=== PATIENT | male | born 1940 | race Caucasian/White ===

== ENCOUNTER → 2016-12-10 | Outpatient (CLI) | payer MEDICARE ==
[2016-12-10 11:34] LABS: Basophils % (A) 1 %; Eosinophils # (A) 0.4 k/uL (0-0.7); Eosinophils % (A) 8 %; HCT 37.5 % (39.0-53.0); HDW 2.64; HGB 12.8 gm/dL (13.0-17.5); Luc # (Auto) 0.15; Luc % (Auto) 3; Lymphocytes # (A) 0.8 k/uL (1.0-4.8); Lymphocytes % (A) 17 %; MCH 33.4 pg (25.0-35.0); MCHC 34.2 g/dL (31.0-37.0); MCV 97.7 fL (80.0-100.0); Mean Platelet Volume 7.4; Monocytes # (A) 0.3 k/uL (0-1.0); Monocytes % (A) 7 %; Neutrophils % (A) 65 %; RBC 3.83 m/uL (4.30-5.90); RDW 14.4 % (11.5-15.5); WBC 4.7 k/uL (3.8-10.6); WBC (Perox) 4.97
[2016-12-10 11:41] LABS: Bilirubin, Delta 0.4 mg/dL (0.0-0.2); Potassium 4.2 mmol/L (3.5-5.1); Total Bilirubin 1.2 mg/dL (0.2-1.3); Total Protein 7.7 g/dL (6.3-8.2)
== END | disposition home or self-care (01) ==
LOC: LABWHC1 10:55
PROVIDERS: ATTEND Internal Medicine Cardiovascular Disease
DX: I25.10 Atherosclerotic heart disease of native coronary artery without angina pectoris (principal)
CPT/HCPCS: 36415; 80051; 80061; 80076; 82550; 82565; 83735; 84520; 85025

== ENCOUNTER → 2017-01-21 | Outpatient (CLI) | payer MEDICARE ==
--- NOTE | 2017-01-21 10:32 | US ---
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 H/O renal stones, colitis, tobacco use EXAM MEASUREMENTS: Liver Length: 15.5 cm Gallbladder Wall: 0.2 cm CBD: 0.4 cm Spleen: 8.1 cm Right Kidney: 12.7 x 5.3 x 5.7 cm Left Kidney: 8.5 x 4.1 x 3.6 cm Pancreas: wnl, tail obscured by bowel gas Liver: wnl Gallbladder: Multiple gallstones filling lumen, wall not thickened Evidence for sonographic Soler's sign: No CBD: wnl Spleen: wnl Right Kidney: wnl Left Kidney: Small in size, cortical thinning Upper IVC: wnl Abd Aorta: wnl The liver is homogenous. The intrahepatic portion of the IVC and proximal abdominal aorta are within normal limits. There is redemonstration of multiple small mobile gallstones filling gallbladder lum en. No pericholecystic fluid collection or abnormal gallbladder wall thickening is seen. Common bile duct is unremarkable. The visualized portions of the pancreas are homogenous. The spleen is unrema rkable. Kidneys are symmetric and free of hydronephrosis. No suspicious renal lesions are seen. Asy mmetric atrophy and cortical thinning of left kidney is present. Large staghorn type calculus on prio r CT is not clearly identified suggesting interval successful with lithotripsy or treatment. Small pu nctate calculi right kidney on CT are less well seen on ultrasound. Exophytic cyst mid to lower pole level left kidney posterior laterally on CT measuring just over 1 cm in size axial image 35 is not cl early seen on ultrasound images saved. IMPRESSION: Gallstones redemonstrated without secondary ultrasound evidence for acute cholecystitis. Interval successful treatment of staghorn type calculus left kidney. Asymmetric atrophy to left kidne y is noted.
== END | disposition home or self-care (01) ==
LOC: RADUSWWP 09:31
PROVIDERS: ATTEND Internal Medicine Gastroenterology
DX: K51.90 Ulcerative colitis, unspecified, without complications (principal); K80.80 Other cholelithiasis without obstruction; N26.1 Atrophy of kidney (terminal); Z87.891 Personal history of nicotine dependence
CPT/HCPCS: 76700

== ENCOUNTER → 2018-06-22 | Outpatient (CLI) | payer MEDICARE ==
[2018-06-22 11:15] LABS: Albumin 4.1 g/dL (3.5-5.0); Calcium 9.8 mg/dL (8.4-10.2); Potassium 4.1 mmol/L (3.5-5.1); Total Bilirubin 0.9 mg/dL (0.2-1.3); Total Protein 7.3 g/dL (6.3-8.2)
== END ==
LOC: LABWHC1 10:29
PROVIDERS: ATTEND Internal Medicine Interventional Cardiology
DX: E78.2 Mixed hyperlipidemia (principal)
CPT/HCPCS: 36415; 80053; 80061

== ENCOUNTER → 2018-07-09 | Outpatient (CLI) | payer MEDICARE ==
--- NOTE | 2018-07-09 15:10 | XR ---
EXAMINATION TYPE: XR KUB DATE OF EXAM: 07/09/2018 COMPARISON: 08/09/2014 INDICATION: History of kidney stones TECHNIQUE: Single view abdomen frontal projection FINDINGS: There is a normal bowel gas pattern. Psoas margins are normal. No organomegaly is present. Filter is present. Surgical clips are within the midabdomen left upper quadrant abdomen and within th e pelvis. 0.2 cm calcification may overlie the mid right kidney. Additional suspicious renal or ureteral stones are not identified IMPRESSION: 1. May be a 0.2 cm calcification overlying the right kidney. 2. Postsurgical changes.
== END ==
LOC: RADXRMAIN 14:43
PROVIDERS: ATTEND Urology
DX: N20.0 Calculus of kidney (principal); Z98.890 Other specified postprocedural states
CPT/HCPCS: 74018

== ENCOUNTER → 2018-09-23 | Outpatient (CLI) | payer MEDICARE | END | disposition home or self-care (01) | LOC: RADCTMAIN 12:20 | PROVIDERS: ATTEND Otolaryngology | DX: J38.00 Paralysis of vocal cords and larynx, unspecified (principal); R49.0 Dysphonia | CPT/HCPCS: 82565; 84520 ==

== ENCOUNTER → 2018-10-08 | Outpatient (CLI) | payer MEDICARE ==
--- NOTE | 2018-10-09 10:16 | CT ---
EXAMINATION TYPE: CT neck chest w con DATE OF EXAM: 10/08/2018 COMPARISON: NONE HISTORY: Hoarseness, LT vocal cord paralysis. No contrast due to pt previous lab report CT DLP: 1436 mGycm. Automated Exposure Control for Dose Reduction was Utilized. TECHNIQUE: CT scan of the neck and thorax are performed without IV contrast due to abnormal renal fu nction. FINDINGS: NECK: Evaluation noted suboptimal due to lack of IV contrast which limits evaluation for mucosal lesi ons and neck adenopathy. Airway: Artifact from dental cavitary fillings and crowns makes evaluation at this level suboptimal. Visualized portion of the airway is clear. Thyroid gland is felt within normal limits. Parotid/submandibular glands: No gross abnormality seen. Carotid/Vascular Structures: There is mild to moderate calcified plaque right carotid bulb with minim al calcified plaque left carotid bulb. Osseous Structures: There is levoconvex scoliosis centered in the upper thoracic spine. There is grad e 1 retrolisthesis of C5 on C6. There is moderate to advanced spurring and disc space narrowing C4-C5 through C6-C7 levels. Posterior spur disc complexes effacing anterior thecal sac at C5-C6 level. Axi al images show uncovertebral facet degenerative changes bilaterally at C3-C4 level and at left C4-C5 level with marginal spurring right C5-C6 level contributing to multilevel neural foraminal narrowing. Other: Incidental mild to moderate mucosal thickening in the right sphenoid sinus coronal image 52. There are some scattered subcentimeter lymph nodes throughout the neck bilaterally. No greater than 1 cm neck adenopathy is clearly seen IMPRESSION: No suspicious mass or adenopathy identified on noncontrast CT of the neck. CHEST: LUNGS: There is patchy left greater than right bibasilar linear atelectasis and/or scarring. No pleur al effusion or pneumothorax is seen bilaterally. Nodular opacities dependently superior aspect right lower lobe favor rounded atelectatic change or pleural thickening, similar lesion is seen superior as pect left lower lobe axial image 30 measuring 9 x 4 mm. No nodules or masses are present. No suspicio us consolidation is seen. MEDIASTINUM: There are no greater than 1 cm hilar or mediastinal lymph nodes. Tiny pericardial effus ion is seen. No cardiomegaly is present. Dual-lumen pacemaker noted. There is mild calcified plaque of aorta. Ascending aorta measures up to 3.7 cm in diameter axial image 40. Mild coronary artery calc ification is present which is noted marker for underlying coronary artery disease. OTHER: Stone filled contracted gallbladder is present. There is partial visualization of left sided o stomy. Some cortical thinning in visualized portion of both kidneys is seen. There is moderate multil evel spurring in the thoracic spine. Patchy bilateral gynecomastia is noted. IMPRESSION: Chronic changes without acute pulmonary process.
== END | disposition home or self-care (01) ==
LOC: RADCTMAIN 16:21
PROVIDERS: ATTEND Otolaryngology
DX: J98.4 Other disorders of lung (principal); J38.00 Paralysis of vocal cords and larynx, unspecified; R49.0 Dysphonia
CPT/HCPCS: 70491; 71260

== ENCOUNTER → 2018-12-11 | Outpatient (CLI) | payer MEDICARE ==
[2018-12-11 11:42] LABS: Potassium 4.3 mmol/L (3.5-5.1)
== END ==
LOC: LABPAT 11:08
PROVIDERS: ATTEND Otolaryngology
DX: Z01.812 Encounter for preprocedural laboratory examination (principal)
CPT/HCPCS: 36415; 80051

== ENCOUNTER → 2018-12-11 | Outpatient (CLI) | payer MEDICARE ==
[2018-12-11 22:24] LABS: LDL Cholesterol,Calculated 77.2 mg/dL (0.0-131.0); VLDL Calculation 24.8 mg/dL (5.00-40.00)
[2018-12-11 22:25] LABS: Albumin 4.3 g/dL (3.80-4.90); Albumin/Globulin Ratio 1.54 (1.60-3.17); Anion Gap 8.5 mmol/L (4.00-12.00); Calcium 10.1 mg/dL (8.7-10.3); Carbon Dioxide 25.5 mmol/L (21.6-31.8); Globulin 2.8 g/dL (1.6-3.3); Potassium 4.2 mmol/L (3.5-5.5); Total Bilirubin 1.2 mg/dL (0.3-1.2); Total Protein 7.1 g/dL (6.2-8.2)
== END | disposition home or self-care (01) ==
LOC: LABWHC1 11:11
PROVIDERS: ATTEND Internal Medicine Interventional Cardiology
DX: E78.2 Mixed hyperlipidemia (principal)
CPT/HCPCS: 36415; 80053; 80061

== ENCOUNTER 2018-12-16 09:08 | Day surgery (SDC) | payer MEDICARE ==
[2018-12-10 12:00] VITALS: BMI 27.3
[~2018-12-16 09:08] MED LIST: DEXAMETHASONE SOD PHOSPHATE 10 MG/ML 1 ML VIAL IV ONE; DEXAMETHASONE SOD PHOSPHATE 4 MG/ML 1 ML VIAL IV ONE; FAMOTIDINE 20 MG/2 ML VIAL IV ONE; LACTATED RINGERS 1,000 ML IV SCH; LIDOCAINE 1% 20 ML VIAL (10MG/ML) FOR IV START INTRADERMA PRN; ONDANSETRON 4 MG/2 ML VIAL IVP ONE; ceFAZolin (PMX-bag) 1,000 MG in DEXTROSE/WATER 1 50ML.BAG IV ONE
[2018-12-16] MEDS: OXYMETAZOLINE 0.05% NASL SPRAY 1 SPRAY BOTTLE NASAL ONE ×5 (10:11→10:34)
[2018-12-16 10:27] VITALS: RESP 16; TEMP 97.3
[2018-12-16] MEDS ORDERED: diphenhydrAMINE 50 MG/ML 1 ML VIAL ONE (11:39)
[2018-12-16] MEDS ORDERED: DEXAMETHASONE SOD PHOS (MDV) 100 MG/10 ML VIAL ONE (11:39)
[2018-12-16] MEDS ORDERED: fentaNYL (PF) 50 MCG/ML 2 ML AMP ONE (11:39)
[2018-12-16] MEDS ORDERED: PROPOFOL 10 MG/ML 20 ML VIAL IV ONE (11:39)
[2018-12-16] MEDS ORDERED: LIDOCAINE 1%-EPI 1:100,000 20 ML VIAL SQ ONE ×2 (11:40)
[2018-12-16] MEDS ORDERED: FLUORESCEIN STRIPS 1 MG STRIP MISCELLANE ONE (11:40)
[2018-12-16] MEDS ORDERED: BUPIVACAIN-EPI 0.5%-1:200,000 30 ML VIAL SQ ONE ×2 (11:40)
[2018-12-16] MEDS ORDERED: EPINEPHrine 1 MG/ML (MDV) 30 ML VIAL IRRIGATION ONE (11:40)
--- NOTE | 2018-12-16 13:33 | P.OP ---
Date of Procedure: 12/16/18 Preoperative Diagnosis: Chronic maxillary sphenoid sinusitis Left vocal cord paralysis Postoperative Diagnosis: Same Procedure(s) Performed: Left medialization thyroplasty with insertion of a #10 Galdamez implant Functional endoscopic sinus surgery with bilateral maxillary antrostomies and sphenoid sinusotomies Anesthesia: VERITOA Surgeon: Natasha Dempsey Estimated Blood Loss (ml): 10 Pathology: none sent Condition: stable Disposition: PACU Indications for Procedure: This patient has chronic sinusitis of the maxillary and sphenoid sinus. He has failed medical therapy and would like to have his sinuses opened as he has constant discolored postnasal drainage etc. In addition the patient has a left vocal cord paralysis with severe dysphonia. The discussed the possibility of a medialization thyroplasty for vocal rehabilitation the patient was very motivated. All risks benefits and alternative therapies were discussed. Consent was obtained and all questions were answered. Operative Findings: Left vocal cord paralysis in the paramedian position preoperatively left vocal cord and a median position postoperatively after placement of a #10 Galdamez implant Patient had polypoid disease on the right side coming off the middle turbinate and had natasha pus in the sphenoid and maxillary sinuses bilaterally. Description of Procedure: OPERATIVE PROCEDURE: This patients neck was prepped and draped in the usual fashion. The anterior neck was prepared and draped such to expose the ipsilateral and contralateral sides. Oxygen was administered through nasal prongs. The thyroid notch, cricothyroid membrane and the inferior margin of the cricoid cartilage were identified and marked with dots utilizing a surgical marker. A horizontal skin incision line is marked approximately 5 mm above the inferior margin of the thyroid cartilage. The area surrounding the incision as well as the deep tissues were infiltrated with 1% Xylocaine and 1:100,000 epinephrine. The incision began 2 cm from the midline on the contralateral side and extended on the ipsilateral side of the neck to the anterior border of the sternocleidomastoid muscle. The skin incision was extended through the platysmas layer with a 15 blade so as to expose the sternohyoid and omohyoid muscles. Flaps were established superiorly and inferiorly in the plane superficial to the fascia covering the strap muscles. Flaps were with self-retaining retractors. The midline i.e. medial raphe is identified and the two sternohyoid muscles are to expose the thyroid notch. The anterior aspect of the thyroid cartilage, cricothyroid membrane and cricoid cartilage were exposed. The under surface of the ipsilateral sternohyoid and omohyoid muscles were dissected so that it could be retracted laterally. A Gelpi retractor was used for lateral retraction. The strap muscles were retracted laterally to expose the thyrohyoid muscle on the surface of the thyroid lamina. The muscle was transected just above the inferior border of the thyroid lamina. The thyrohyoid muscle was detached from its inferior attachment utilizing the chisel elevator and cutting current on the cautery. The thyroid lamina, its inferior border then inferior thyroid tubercle were exposed. The window caliper was used to locate the superior border and the anterior superior angle of the thyroplasty window. After the inferior thyroid tubercle had been identified and exposed, the inferior border of the thyroid lamina is exposed anterior and posterior to the structure. One point of the caliper touched the inferior border of the thyroid lamina anterior to the inferior thyroid tubercle and the other point directly superior. A similar cautery point was made in the inferior border posterior to the inferior thyroid tubercle utilizing 0.2. The anterior and posterior cautery markings were connected utilizing a surgical marking pen. The line is extended to the anterior aspect of the thyroid lamina and represents the superior margin of the thyroplasty window. The valdovinos point was measures and represents the anterior superior angle of the thyroplasty window. The window outline was measured. The shaft of the instrument was inserted into the electrocautery handle. The anterior superior point of the window outlined and was placed on the valdovinos point cautery. Current was applied making four burgess designating the four corners of the windows. The four burgess were connected with surgical marker. A small tangential saw was used to cut the thyroplasty window. The anterior margin of the cartilage was grasped with a small sharp hook and gently elevated. The underlying perichondrium was from the cartilage utilizing the chisel elevator as the cartilage was removed. After the cartilage was removed from the window, the window outlying instrument was used as a template to confirm that the window size was correct. After confirming accurate window size, the end of perichondrium was elevated from the underlying cartilage in all directions utilizing the chisel elevator. The fiberoptic laryngoscope was inserted at the same time and the size of each measuring device was identified and we started with the smallest size of the measuring device and went up to the largest size. We had him phonate and we looked directly. We felt that the number 10 was the best implant size. LEFT SIDE USED, A 100 mg of lidocaine hydrochloride was administered intravenously prior to insertion of the implant. The implant was grasped with the broad forceps and the posterior tip of the triangular portion is inserted through the window in the direction of the vocal process of the arytenoid. The middle tear of the base is engaged in the posterior rim of the window with the top and bottom tears at the base on either side of thyroid lamina. The implant was held in place with the index finger and the implant cambering machine operator was placed in the middle of the anterior base and was used to snap the implant in place. The fiberoptic scope was again used to confirm the vocal cord medialization while the patient phonates and it looked good. The sternohyoid muscles were approximated in the anterior midline with 4-0 Vicryl. The subcutaneous layer was closed after the platysmas was closed. No drain was needed. We observed this area and we did not find any need for that. The patient tolerated this procedure well. The deep dermal layers were closed with 4-0 Vicryl. The skin was closed with 5-0 nylon. Excellent results were obtained. The patient was placed on voice rest. Postoperative instructions are on the chart.
[2018-12-16 13:52] VITALS: BP 118/64; PULSE 65
--- NOTE | 2018-12-21 13:24 | CDI ---
Outpatient Documentation Clarification Form Date: 12/21/18 CDS/Last Waxer Name: Adrian Rodriguez, MANJU, CCS, [employer] CELL SEALER Phone: If any questions, call Kristina Goncalves Travograph Operator at [phone] Patient Name: Moustapha Enriquez Admit Date: 12/16/18 Discharge Date: 12/16/18 ATTENTION: The [facility] Coding Staff appreciate your assistance in clarifying documentation. Please respond to the clarification below the line at the bottom and electronically sign. The [facility] Coding staff will review the response and follow-up if needed. Please note: Queries are made part of the Legal Health Record. If you have any questions, please contact the Travograph Operator. Dear Dr. Aayush Dempsey DO, The operative report states the procedures performed were a left medialization thyroplasty and a FESS with bilateral maxillary antrostomies and sphenoid sinusotomies. However, the body of the operative report doesnt include the details for the sinus procedure(s). Please clarify whether there was a FESS performed and if so, the details of the procedure(s). Thank you for your kind consideration. I dictated an operative note addendum today so we should be good. paul SHAFER
--- NOTE | 2018-12-28 20:25 | OP ---
OPERATIVE REPORT OPERATIVE NOTE ADDENDUM: DATE OF SERVICE: 12/16/2018 OPERATIVE NOTE ADDENDUM: This patient underwent functional endoscopic sinus surgery after the left medialization thyroplasty was performed. We anesthetized the lateral nasal wall and sphenoid rostrum with Lidocaine 1% with epinephrine 1:100,000. With use of a zero-degree Wolf stephon-scope, we took down the uncinate processes bilaterally and widened and opened up the maxillary sinuses bilaterally, removing diseased tissue accordingly. After the maxillary sinuses were opened, under endoscopic visualization we then opened the sphenoid sinuses and widened the ostia. We entered the sphenoid sinuses bilaterally with a zero-degree Wolf stephon-endoscope and we removed diseased tissue from the sphenoid sinus. To summarize, we opened the bilateral maxillary sinuses and sphenoid sinuses, entered those sinuses and removed diseased tissue of the sinuses. This was all done under endoscopic visualization with a Wolf stephon-endoscope utilizing a zero- and 30-degree scope. This was done after the left medialization thyroplasty was performed. MMODL / IJN: [id number] /
== END 2018-12-16 14:54 | disposition home or self-care (01) ==
LOC: OR 09:08
PROVIDERS: ATTEND Otolaryngology
DX: J38.01 Paralysis of vocal cords and larynx, unilateral (principal); J32.8 Other chronic sinusitis; I25.10 Atherosclerotic heart disease of native coronary artery without angina pectoris; E78.5 Hyperlipidemia, unspecified; I10 Essential (primary) hypertension; K21.9 Gastro-esophageal reflux disease without esophagitis; M10.9 Gout, unspecified; Z95.5 Presence of coronary angioplasty implant and graft; Z95.810 Presence of automatic (implantable) cardiac defibrillator; Z79.2 Long term (current) use of antibiotics; Z79.01 Long term (current) use of anticoagulants; Z79.891 Long term (current) use of opiate analgesic; Z79.899 Other long term (current) drug therapy; Z87.891 Personal history of nicotine dependence
CPT/HCPCS: 31591; 31267; 31288; 88305; L8509; J0171; J1200; J1100 ×2; J2405; J3010; J0690; J2704

== ENCOUNTER 2019-03-31 15:00 | Emergency (ER) | payer MEDICARE ==
--- NOTE | 2019-03-31 15:41 | ED ---
ENT HPI - General Chief complaint: Dental/Oral Stated complaint: Facial swelling Time Seen by Provider: 03/31/19 15:12 Source: patient Mode of arrival: ambulatory Limitations: no limitations - History of Present Illness Initial comments: Patient is a 78-year-old male presents emergency Department with his dentist with a chief complaint of left-sided facial swelling. The dentist reports the patient came to his office for a right upper root canal repair when he noticed the swelling and brought him to the emergency department. Patient reports he "felt" the swelling approximately 2 months ago with a dentist reports the patient was in his office for evaluation on March 25 and no swelling was noted at that time. Patient reports the pain has increased in severity today when he attempted to chew. Patient also reports pain with palpation along the left mandible. Patient denies fever, nausea, vomiting, drooling, otalgia, headaches, dysphagia. - Related Data Home Medications Medication Instructions Recorded Confirmed Dutasteride [Avodart] 0.5 mg PO DAILY 01/10/14 12/10/18 Famotidine [Pepcid] 20 mg PO BID 01/10/14 12/10/18 Ferrous Sulfate [Feosol] 65 mg PO BID 01/10/14 12/10/18 Furosemide [Lasix] 40 mg PO DAILY 01/10/14 12/10/18 Simvastatin [Zocor] 20 mg PO HS 01/10/14 12/10/18 Tamsulosin [Flomax] 0.4 mg BID 01/10/14 12/10/18 Apixaban [Eliquis] 5 mg PO BID 09/30/18 12/10/18 Cholecalciferol (Vitamin D3) 2,000 unit PO BID 09/30/18 12/10/18 [Vitamin D3] Febuxostat [Uloric] 40 mg PO DAILY 09/30/18 12/10/18 Magnesium Oxide [Mag-Ox] 400 mg PO BID 09/30/18 12/10/18 Sotalol [Betapace] 80 mg PO BID 09/30/18 12/10/18 Acetaminophen-Codeine 300-30mg 1 tab PO DIRECTED PRN 12/10/18 12/10/18 [Tylenol w/codeine #3] Amoxic-Pot Clav 875-125Mg 1 tab PO BID 12/10/18 12/10/18 [Augmentin 875-125] Benzonatate [Tessalon Perles] 100 mg PO TID PRN 12/10/18 12/10/18 Fenofibrate 54 mg PO DAILY 12/10/18 12/10/18 Ferrous Sulfate [Feosol] 325 mg PO BID 12/10/18 12/10/18 Multivit-Min/Folic/Vit K/Lycop 1 each PO DAILY 12/10/18 12/10/18 [Men's Multivitamin Tablet] Potassium Chloride [Klor-Con 20] 20 meq PO QAM 12/10/18 12/10/18 Potassium Chloride [Klor-Con 20] 40 meq PO HS 12/10/18 12/10/18 Previous Rx's Medication Instructions Recorded Amoxicillin/Potassium Clav 1 each PO Q12HR #20 tab 12/16/18 [Augmentin 875-125 Tablet] HYDROcodone/APAP 5-325MG [[place] 1 - 2 tab PO Q4-6H PRN 3 Days #36 12/16/18 5-325] tab Omeprazole 20 mg PO DAILY #30 tablet. 12/16/18 predniSONE 20 mg PO DIRECTED #5 tab 12/16/18 Allergies Allergy/AdvReac Type Severity Reaction Status Date / Time No Known Allergies Allergy Verified 03/31/19 15:09 Review of Systems ROS Statement: Those systems with pertinent positive or pertinent negative responses have been documented in the HPI. ROS Other: All systems not noted in ROS Statement are negative. Past Medical History Past Medical History: Cancer, Hyperlipidemia, Hypertension, Prostate Disorder Additional Past Medical History / Comment(s): HX COLON & SKIN CANCER , HAS COLOSTOMY- STATES NO RECTUM., ARRYTHMIA, AICD-ST.JINNY, GOUT, HX KIDNEY STONES., HAS GALL STONES., STATES 3 ABDOMINAL HERNIA'S & UNABLE TO HAVE SURGERY., WEARS SUPPORT STOCKINGS SINCE VEIN SURGERY., HX OF CONCUSSION WITH LOSS OF CONSCIOUSNESS, STATES HX OF PARALIZED FROM NECK DOWN AND THIS RESOLVED., HAS STIFF NECK AND BACK PAIN. , MACULAR DEGENERATION., BPH. History of Any Multi-Drug Resistant Organisms: None Reported Past Surgical History: Bowel Resection, Heart Catheterization With Stent, Hernia Repair, Orthopedic Surgery Additional Past Surgical History / Comment(s): stent x1, colostomy, rt wrist carpal tunnel, Kidney stones removed ., Left side kidney tube Past Anesthesia/Blood Transfusion Reactions: No Reported Reaction Date of Last Stent Placement:: unknown Type of Cardiac Device: AICD Device Placement Date:: st jinny unknown Past Psychological History: No Psychological Hx Reported Smoking Status: Former smoker Past Alcohol Use History: Rare Past Drug Use History: None Reported - Past Family History Mother Family Medical History: No Reported History General Exam Limitations: no limitations General appearance: alert, in no apparent distress Head exam: Present: atraumatic, normocephalic, normal inspection Eye exam: Present: normal appearance, PERRL, EOMI Pupils: Present: normal accommodation ENT exam: Present: normal exam, mucous membranes moist, TM's normal bilaterally, normal external ear exam. Absent: normal oropharynx (Left-sided mandibular swelling but no erythema.), other (No enlarged tonsils, exudates or uvular de viation.) Neck exam: Present: normal inspection, full ROM Respiratory exam: Present: normal lung sounds bilaterally Cardiovascular Exam: Present: regular rate, normal rhythm, normal heart sounds GI/Abdominal exam: Present: soft Extremities exam: Present: normal inspection, full ROM Back exam: Present: normal inspection, full ROM, CVA tenderness (L) Neurological exam: Present: alert, oriented X3 Psychiatric exam: Present: normal affect, normal mood Skin exam: Present: warm, intact, normal color Course Vital Signs 03/31/19 03/31/19 15:09 16:12 Temperature 97.7 F Pulse Rate 53 L 59 L Respiratory 16 20 Rate Blood Pressure 127/73 123/68 O2 Sat by Pulse 97 98 Oximetry Medical Decision Making - Lab Data Result diagrams: 03/31/19 16:10 03/31/19 16:10 Lab Results 03/31/19 03/31/19 Range/Units 16:10 16:10 WBC 8.6 (3.8-10.6) k/uL RBC 3.98 L (4.30-5.90) m/uL Hgb 12.9 L (13.0-17.5) gm/dL Hct 38.6 L (39.0-53.0) % MCV 96.9 (80.0-100.0) fL MCH 32.5 (25.0-35.0) pg MCHC 33.5 (31.0-37.0) g/dL RDW 14.5 (11.5-15.5) % Plt Count 175 (150-450) k/uL Sodium 143 (137-145) mmol/L Potassium 4.2 (3.5-5.1) mmol/L Chloride 108 H (98-107) mmol/L Carbon Dioxide 25 (22-30) mmol/L Anion Gap 10 mmol/L BUN 29 H (9-20) mg/dL Creatinine 1.36 H (0.66-1.25) mg/dL Est GFR (CKD-EPI)AfAm 56 (>60 ml/min/1.73 sqM) Est GFR (CKD-EPI)NonAf 49 (>60 ml/min/1.73 sqM) Glucose 96 (74-99) mg/dL Calcium 10.1 (8.4-10.2) mg/dL Total Bilirubin 1.0 (0.2-1.3) mg/dL AST 31 (17-59) U/L ALT 13 L (21-72) U/L Alkaline Phosphatase 53 (38-126) U/L Total Protein 7.8 (6.3-8.2) g/dL Albumin 4.7 (3.5-5.0) g/dL Disposition Clinical Impression: Swelling of left side of face Disposition: HOME SELF-CARE Condition: Stable Instructions (If sedation given, give patient instructions): Dental Abscess (ED), Toothache (ED) Additional Instructions: Please follow up with an ENT specialist. Please return to emergency department if symptoms worsen. Is patient prescribed a controlled substance at d/c from ED?: No Referrals: Karli Borja MD [Primary Care Provider] - 1-2 days Christiano Bella MD [STAFF PHYSICIAN] - 1-2 days Time of Disposition: 17:59
[2019-03-31 16:21] LABS: HCT 38.6 % (39.0-53.0); HGB 12.9 gm/dL (13.0-17.5); MCH 32.5 pg (25.0-35.0); MCHC 33.5 g/dL (31.0-37.0); MCV 96.9 fL (80.0-100.0); Mean Platelet Volume 7.4; Platelet Count 175 k/uL (150-450); RBC 3.98 m/uL (4.30-5.90); RDW 14.5 % (11.5-15.5); WBC 8.6 k/uL (3.8-10.6)
[2019-03-31 16:33] LABS: Albumin 4.7 g/dL (3.5-5.0); Calcium 10.1 mg/dL (8.4-10.2); Potassium 4.2 mmol/L (3.5-5.1); Total Protein 7.8 g/dL (6.3-8.2)
[2019-03-31 16:36] VITALS: RESP 20
--- NOTE | 2019-03-31 17:20 | CT ---
EXAMINATION TYPE: CT soft tissue neck w con DATE OF EXAM: 03/31/2019 5:09 PM COMPARISON: 10/08/2018 HISTORY: Left jaw swelling CT DLP: 223.7 mGycm Automated exposure control for dose reduction was used. CONTRAST: CT scan of the neck is performed following with IV Contrast, patient injected with 100 mL of Isovue 3 00. Axial images are obtained, coronal and sagittal reformatted images are reviewed. FINDINGS: There is some atheromatous change in the aortic arch. There is normal branching pattern of the great vessels. Thyroid gland is symmetric. There is normal contrast opacification of the carotid arteries i n the vertebral arteries. There is some atheromatous plaque formation at the carotid artery bifurcati ons on the right side more than the left. Epiglottis is normal. Visualized trachea appears normal. There is no evidence of pharyngeal mass. Ton sils are symmetric. Adenoids appear normal. The tongue appears normal. There is no evidence of cervic al lymphadenopathy. Submandibular salivary glands are symmetric. Parotid glands are symmetric. There is minimal mucosal t hickening in the left side sphenoid sinus. Visualized orbits appear normal. There are spondylotic armida nges in the cervical spine with degenerative disc space narrowing from C4 to C7 with spur formation. There is multilevel hypertrophic cervical facet arthropathy. There is no compression fracture. IMPRESSION: Minimal left-sided sphenoid sinusitis. Otherwise negative exam. No suspicious neck mass. No adverse change compared to old exam. Spondylotic changes in the cervical spine. Unchanged.
[2019-03-31 18:42] VITALS: BP 126/74; PULSE 60; TEMP 98.3
== END 2019-03-31 18:20 | disposition home or self-care (01) ==
LOC: EC 15:00
DX: R22.0 Localized swelling, mass and lump, head (principal); R51 Headache; E78.5 Hyperlipidemia, unspecified; I10 Essential (primary) hypertension; N40.0 Benign prostatic hyperplasia without lower urinary tract symptoms; M10.9 Gout, unspecified; Z79.01 Long term (current) use of anticoagulants; Z79.899 Other long term (current) drug therapy; Z85.038 Personal history of other malignant neoplasm of large intestine; Z85.828 Personal history of other malignant neoplasm of skin; Z93.3 Colostomy status; Z86.79 Personal history of other diseases of the circulatory system; Z95.810 Presence of automatic (implantable) cardiac defibrillator; Z87.891 Personal history of nicotine dependence
CPT/HCPCS: 36415; 80053; 85027; 70491; 99284; Q9967

== ENCOUNTER → 2019-03-31 | Outpatient (CLI) | payer MEDICARE ==
[2019-03-31 16:20] LABS: LDL Cholesterol,Calculated 67.8 mg/dL (0.0-131.0); VLDL Calculation 25.2 mg/dL (5.00-40.00)
== END | disposition home or self-care (01) ==
LOC: LABWHC1 10:34
PROVIDERS: ATTEND Nurse Practitioner Adult Health
DX: E78.2 Mixed hyperlipidemia (principal)
CPT/HCPCS: 36415; 80061; 84450; 84460

== ENCOUNTER 2019-10-18 11:08 | Inpatient (IN) | payer MEDICARE ==
[2019-10-18] MEDS ORDERED: SODIUM CHLORIDE 0.9% 1,000 ML IV STA ×2 (12:08)
--- NOTE | 2019-10-18 12:12 | ED ---
General Adult HPI - General Chief complaint: Syncope Stated complaint: Syncope Time Seen by Provider: 10/18/19 11:29 Source: patient, EMS, RN notes reviewed Mode of arrival: EMS Limitations: no limitations - History of Present Illness Initial comments: Patient is a pleasant 78-year-old male presenting to the emergency Department with complaints of sacral episodes. Patient had 3 episodes today and 2 yesterday. Patient denies any injury. No head or neck pain. No chest or back pain. Patient does have some abdominal discomfort however that is fairly chronic problem for him. Patient has had nausea and vomiting for several days. Patient has had very limited intake for the past several days. Patient has had decreased output through his ostomy as well. No diarrhea. No fevers. Patient has had several abdominal surgeries previously and has know hernias. - Related Data Home Medications Medication Instructions Recorded Confirmed Dutasteride [Avodart] 0.5 mg PO DAILY 01/10/14 03/31/19 Famotidine [Pepcid] 20 mg PO BID 01/10/14 03/31/19 Ferrous Sulfate [Feosol] 65 mg PO BID 01/10/14 03/31/19 Furosemide [Lasix] 40 mg PO DAILY 01/10/14 03/31/19 Simvastatin [Zocor] 20 mg PO HS 01/10/14 03/31/19 Tamsulosin [Flomax] 0.4 mg BID 01/10/14 03/31/19 Apixaban [Eliquis] 5 mg PO BID 09/30/18 03/31/19 Cholecalciferol (Vitamin D3) 2,000 unit PO BID 09/30/18 03/31/19 [Vitamin D3] Febuxostat [Uloric] 40 mg PO DAILY 09/30/18 03/31/19 Magnesium Oxide [Mag-Ox] 400 mg PO BID 09/30/18 03/31/19 Sotalol [Betapace] 80 mg PO BID 09/30/18 03/31/19 Acetaminophen-Codeine 300-30mg 1 tab PO DIRECTED PRN 12/10/18 03/31/19 [Tylenol w/codeine #3] Benzonatate [Tessalon Perles] 100 mg PO TID PRN 12/10/18 03/31/19 Fenofibrate 54 mg PO DAILY 12/10/18 03/31/19 Ferrous Sulfate [Feosol] 325 mg PO BID 12/10/18 03/31/19 Multivit-Min/Folic/Vit K/Lycop 1 each PO DAILY 12/10/18 03/31/19 [Men's Multivitamin Tablet] Potassium Chloride [Klor-Con 20] 20 meq PO QAM 12/10/18 03/31/19 Potassium Chloride [Klor-Con 20] 40 meq PO HS 12/10/18 03/31/19 Previous Rx's Medication Instructions Recorded HYDROcodone/APAP 5-325MG [Kamuela 1 - 2 tab PO Q4-6H PRN 3 Days #36 12/16/18 5-325] tab Omeprazole 20 mg PO DAILY #30 tablet. 12/16/18 predniSONE [Deltasone] 20 mg PO DIRECTED #5 tab 12/16/18 Allergies Allergy/AdvReac Type Severity Reaction Status Date / Time No Known Allergies Allergy Verified 03/31/19 15:09 Review of Systems ROS Statement: Those systems with pertinent positive or pertinent negative responses have been documented in the HPI. ROS Other: All systems not noted in ROS Statement are negative. Constitutional: Denies: fever Eyes: Denies: eye pain ENT: Denies: ear pain Respiratory: Denies: cough, dyspnea Cardiovascular: Denies: chest pain Endocrine: Reports: fatigue Gastrointestinal: Reports: abdominal pain, nausea, vomiting Genitourinary: Denies: dysuria Musculoskeletal: Denies: back pain Skin: Denies: rash Neurological: Denies: headache, weakness Past Medical History Past Medical History: Cancer, Hyperlipidemia, Hypertension, Prostate Disorder Additional Past Medical History / Comment(s): HX COLON & SKIN CANCER , HAS COLOSTOMY- STATES NO RECTUM., ARRYTHMIA, AICD-ST.JINNY, GOUT, HX KIDNEY STONES., HAS GALL STONES., STATES 3 ABDOMINAL HERNIA'S & UNABLE TO HAVE SURGERY., WEARS S UPPORT STOCKINGS SINCE VEIN SURGERY., HX OF CONCUSSION WITH LOSS OF CONSCIOUSNESS, STATES HX OF PARALIZED FROM NECK DOWN AND THIS RESOLVED., HAS STIFF NECK AND BACK PAIN. , MACULAR DEGENERATION., BPH. History of Any Multi-Drug Resistant Organisms: None Reported Past Surgical History: Bowel Resection, Heart Catheterization With Stent, Hernia Repair, Orthopedic Surgery Additional Past Surgical History / Comment(s): stent x1, colostomy, rt wrist carpal tunnel, Kidney stones removed ., Left side kidney tube Past Anesthesia/Blood Transfusion Reactions: No Reported Reaction Date of Last Stent Placement:: unknown Type of Cardiac Device: AICD Device Placement Date:: st jinny unknown Past Psychological History: No Psychological Hx Reported Smoking Status: Former smoker Past Alcohol Use History: Rare Past Drug Use History: None Reported - Past Family History Mother Family Medical History: No Reported History Father Family Medical History: Congestive Heart Failure (CHF) Sister(s) Family Medical History: Unable to Obtain Additional Family Medical History / Comment(s): No no signs no daughters Brother(s) Family Medical History: Unable to Obtain (No brothers) General Exam Limitations: no limitations General appearance: alert, in no apparent distress Head exam: Present: atraumatic, normocephalic Eye exam: Present: normal appearance, PERRL ENT exam: Present: mucous membranes dry Neck exam: Present: normal inspection Respiratory exam: Present: normal lung sounds bilaterally Cardiovascular Exam: Present: regular rate, normal rhythm Expanded Peripheral pulses: 2+: Dorsalis Pedis (R), Dorsalis Pedis (L) GI/Abdominal exam: Present: soft, tenderness (Mild diffuse tenderness, more so right lower abdomen), normal bowel sounds. Absent: distended, guarding, rebound, rigid, pulsatile mass Extremities exam: Present: normal inspection Neurological exam: Present: alert Psychiatric exam: Present: normal affect, normal mood Skin exam: Present: normal color Course Vital Signs 10/18/19 10/18/19 10/18/19 11:36 11:41 12:41 Temperature 97.1 F L Pulse Rate 74 68 Respiratory 20 20 20 Rate Blood Pressure 123/69 112/70 O2 Sat by Pulse 97 98 Oximetry - Reevaluation(s) Reevaluation #1: 10/18/19 15:33 Right inguinal hernia reduced with improvement of symptoms of discomfort in the right renal area. Patient states it also feels better to him. Patient is familiar with this hernia as been chronic. EKG Findings - EKG Comments: EKG Findings:: Paced rhythm with a rate of 69. CA 286. QRS 164. QTC 490. QTC 525. Left axis. Wide-complex QRS. No acute ST change. Medical Decision Making - Medical Decision Making Patient reevaluated and updated. Case was discussed in detail with Dr. Hutchinson, who will admit covering for Dr. Borja. She did evaluate patient. - Lab Data Result diagrams: 10/18/19 12:05 10/18/19 12:05 Lab Results 10/18/19 10/18/19 10/18/19 Range/Units 12:05 12:05 13:00 WBC 25.3 H (3.8-10.6) k/uL RBC 6.09 H (4.30-5.90) m/uL Hgb 20.0 H* (13.0-17.5) gm/dL Hct 59.1 H* (39.0-53.0) % MCV 97.1 (80.0-100.0) fL MCH 32.9 (25.0-35.0) pg MCHC 33.9 (31.0-37.0) g/dL RDW 14.2 (11.5-15.5) % Plt Count 239 (150-450) k/uL Neutrophils % 84 % Lymphocytes % 3 % Monocytes % 10 % Eosinophils % 0 % Basophils % 1 % Neutrophils # 21.4 H (1.3-7.7) k/uL Lymphocytes # 0.7 L (1.0-4.8) k/uL Monocytes # 2.5 H (0-1.0) k/uL Eosinophils # 0.1 (0-0.7) k/uL Basophils # 0.3 H (0-0.2) k/uL PT (9.0-12.0) sec INR (<1.2) APTT (22.0-30.0) sec Sodium 133 L (137-145) mmol/L Potassium 4.4 (3.5-5.1) mmol/L Chloride 96 L (98-107) mmol/L Carbon Dioxide 21 L (22-30) mmol/L Anion Gap 16 mmol/L BUN 50 H (9-20) mg/dL Creatinine 1.95 H (0.66-1.25) mg/dL Est GFR (CKD-EPI)AfAm 37 (>60 ml/min/1.73 sqM) Est GFR (CKD-EPI)NonAf 32 (>60 ml/min/1.73 sqM) Glucose 192 H (74-99) mg/dL Calcium 9.7 (8.4-10.2) mg/dL Total Bilirubin 2.1 H (0.2-1.3) mg/dL AST 29 (17-59) U/L ALT 19 (4-49) U/L Alkaline Phosphatase 60 (38-126) U/L Total Protein 7.3 (6.3-8.2) g/dL Albumin 4.1 (3.5-5.0) g/dL Urine Color Yellow Urine Appearance Cloudy (Clear) Urine pH 5.5 (5.0-8.0) Ur Specific [place] 1.021 (1.001-1.035) Urine Protein 1+ H (Negative) Urine Glucose (UA) Negative (Negative) Urine Ketones Negative (Negative) Urine Blood Negative (Negative) Urine Nitrite Negative (Negative) Urine Bilirubin Negative (Negative) Urine Urobilinogen <2.0 (<2.0) mg/dL Ur Leukocyte Esterase Negative (Negative) Urine RBC <1 (0-5) /hpf Urine WBC 1 (0-5) /hpf Ur Squamous Epith Cells <1 (0-4) /hpf Hyaline Casts 13 H (0-2) /lpf Urine Mucus Rare H (None) /hpf 10/18/19 Range/Units 13:10 WBC (3.8-10.6) k/uL RBC (4.30-5.90) m/uL Hgb (13.0-17.5) gm/dL Hct (39.0-53.0) % MCV (80.0-100.0) fL MCH (25.0-35.0) pg MCHC (31.0-37.0) g/dL RDW (11.5-15.5) % Plt Count (150-450) k/uL Neutrophils % % Lymphocytes % % Monocytes % % Eosinophils % % Basophils % % Neutrophils # (1.3-7.7) k/uL Lymphocytes # (1.0-4.8) k/uL Monocytes # (0-1.0) k/uL Eosinophils # (0-0.7) k/uL Basophils # (0-0.2) k/uL PT 10.9 (9.0-12.0) sec INR 1.1 (<1.2) APTT 22.3 (22.0-30.0) sec Sodium (137-145) mmol/L Potassium (3.5-5.1) mmol/L Chloride (98-107) mmol/L Carbon Dioxide (22-30) mmol/L Anion Gap mmol/L BUN (9-20) mg/dL Creatinine (0.66-1.25) mg/dL Est GFR (CKD-EPI)AfAm (>60 ml/min/1.73 sqM) Est GFR (CKD-EPI)NonAf (>60 ml/min/1.73 sqM) Glucose (74-99) mg/dL Calcium (8.4-10.2) mg/dL Total Bilirubin (0.2-1.3) mg/dL AST (17-59) U/L ALT (4-49) U/L Alkaline Phosphatase (38-126) U/L Total Protein (6.3-8.2) g/dL Albumin (3.5-5.0) g/dL Urine Color Urine Appearance (Clear) Urine pH (5.0-8.0) Ur Specific Cocoa (1.001-1.035) Urine Protein (Negative) Urine Glucose (UA) (Negative) Urine Ketones (Negative) Urine Blood (Negative) Urine Nitrite (Negative) Urine Bilirubin (Negative) Urine Urobilinogen (<2.0) mg/dL Ur Leukocyte Esterase (Negative) Urine RBC (0-5) /hpf Urine WBC (0-5) /hpf Ur Squamous Epith Cells (0-4) /hpf Hyaline Casts (0-2) /lpf Urine Mucus (None) /hpf - Radiology Data Radiology results: report reviewed (Computed tomography scan of the abdomen pelvis shows that abdominal ascites. Appearance of right lower quadrant varices. The liver. Small bowel containing hernia right inguinal. Mesenteric congestion.), image reviewed (Chest x-ray shows no acute process) Disposition Clinical Impression: Dehydration, Syncope Disposition: ADMITTED IP TO THIS [facility] Condition: Serious Is patient prescribed a controlled substance at d/c from ED?: No Referrals: Karli Borja MD [Primary Care Provider] - 1-2 days Decision Time: 15:24
[2019-10-18 12:29] LABS: Basophils # (A) 0.3 k/uL (0-0.2); Basophils % (A) 1 %; Eosinophils # (A) 0.1 k/uL (0-0.7); Eosinophils % (A) 0 %; Lymphocytes # (A) 0.7 k/uL (1.0-4.8); Lymphocytes % (A) 3 %; MCH 32.9 pg (25.0-35.0); MCHC 33.9 g/dL (31.0-37.0); MCV 97.1 fL (80.0-100.0); Mean Platelet Volume 8.3; Monocytes # (A) 2.5 k/uL (0-1.0); Monocytes % (A) 10 %; Neutrophils # (A) 21.4 k/uL (1.3-7.7); Neutrophils % (A) 84 %; Platelet Count 239 k/uL (150-450); RBC 6.09 m/uL (4.30-5.90); RDW 14.2 % (11.5-15.5); WBC 25.3 k/uL (3.8-10.6)
[2019-10-18 12:31] LABS: Potassium 4.4 mmol/L (3.5-5.1)
[2019-10-18 12:32] LABS: Albumin 4.1 g/dL (3.5-5.0); Calcium 9.7 mg/dL (8.4-10.2); Total Bilirubin 2.1 mg/dL (0.2-1.3); Total Protein 7.3 g/dL (6.3-8.2)
[2019-10-18 12:33] LABS: HCT 59.1 % (39.0-53.0)
[2019-10-18 13:21] LABS: Appearance,Urine Cloudy (Clear); Bilirubin,Urine Negative (Negative); Blood,Urine Negative (Negative); Color,Urine Yellow; Glucose,Urine (UA) Negative (Negative); Hyaline Casts,Urine 13 /lpf (0-2); Ketones,Urine Negative (Negative); Leukocyte Esterase,Urine Negative (Negative); Mucus,Urine Rare /hpf; Nitrite,Urine Negative (Negative); PH, Urine 5.5 (5.0-8.0); Protein,Urine 1+ (Negative); RBC,Urine <1 /hpf (0-5); Specific Gravity,Urine 1.021 (1.001-1.035); Squamous Epithelial Cell,Urine <1 /hpf (0-4); Urobilinogen,Urine <2.0 mg/dL (<2.0); WBC,Urine 1 /hpf (0-5)
[2019-10-18 14:10] LABS: INR 1.1 (<1.2)
[2019-10-18 14:13] LABS: Partial Thromboplastin Time 22.3 sec (22.0-30.0); Prothrombin Time 10.9 sec (9.0-12.0)
--- NOTE | 2019-10-18 14:28 | XR ---
EXAMINATION TYPE: XR chest 2V DATE OF EXAM: 10/18/2019 COMPARISON: NONE HISTORY: Shortness of breath TECHNIQUE: Frontal and lateral views of the chest are obtained. FINDINGS: Scattered senescent parenchymal changes noted. Hyperinflation compatible with COPD. No evidence for infiltrate. No evidence for atelectasis. Heart size is stable. Mediastinal structures are stable and grossly unremarkable. No evidence for hilar prominence. Degenerative changes dorsal spine. IMPRESSION: 1. No evidence for acute pulmonary disease.
--- NOTE | 2019-10-18 14:41 | CT ---
EXAMINATION TYPE: CT abdomen pelvis wo con DATE OF EXAM: 10/18/2019 COMPARISON: 10/18/2019 HISTORY: Abdominal pain and syncope. History of partial resection with colostomy, hernia, cardiac natalia nt, and lithotripsy. CT DLP: 657.5 mGycm Automated exposure control for dose reduction was used. TECHNIQUE: Helical acquisition of images was performed from the lung bases through the pelvis. FINDINGS: LUNG BASES: Peripheral basilar reticular opacity of the right lung base appears as early fibrotic armida nge. Right hemidiaphragm elevation is also seen. Trace pericardial effusion. LIVER/GB: Perihepatic and perisplenic ascites are noted however there is no cirrhotic morphology of gerri tobar liver. Ascites is overall small volume. Liver is unremarkable in unenhanced morphology. Cholelithi asis is seen. PANCREAS: No significant abnormality is seen. SPLEEN: No significant abnormality is seen. Small splenule adjacent to the [place] spleen. ADRENALS: No significant abnormality is seen. KIDNEYS: Nonobstructing right renal calculi in the midpole measuring 2 mm in the inferior pole measur ing 3 mm. No hydronephrosis of either kidney. Lobulated contours is seen of both kidneys suboptimally evaluated without contrast. ADENOPATHY: No greater than 1 cm short axis lymph node in the abdomen or pelvis given the limitation of lack of intravenous contrast. OSSEOUS STRUCTURES: There is diffuse osseous demineralization and moderate degenerative changes of t amadou lumbar spine with Schmorl's node of the inferior endplate of L1. BOWEL: Midline ostomy is present. Right lower quadrant varices are seen however. Some mild fat stran ding surrounding bowel loops in the right lower quadrant could relate to ascites as this is also seen within the pelvis. There is a small bowel containing right inguinal hernia. Physical exam for reduci bility is recommended. Thickening of the gastric antrum may relate to peristalsis or adjacent ascites . Oral contrast could further evaluate this finding. OTHER: Vena cava filter is incidentally seen. Metallic density anterior to the pancreatic head that c ould represent an embolization coil. Surgical clips are scattered in the left mid abdomen. Extensive atherosclerosis of the abdominal aorta and its branches. IMPRESSION: 1. Mild abdominal ascites. Although the liver contour appears smooth there are right lower quadrant v arices. Underlying cirrhosis or venous obstruction is possible. 2. Small bowel containing right inguinal hernia. Correlation with physical exam for reducibility is r ecommended to ensure no incarceration. 3. Mild fat stranding around right lower quadrant bowel loops and pelvic bowel loops likely relates t o mesenteric congestion and ascites rather than inflammatory or infectious etiology. 4. Incidentally noted nonobstructing right renal calculi and cholelithiasis. 5. Trace pericardial effusion.
--- NOTE | 2019-10-18 15:12 | P.HPIM ---
History of Present Illness H&P Date: 10/18/19 Chief Complaint: Syncope This is an 78-year-old pleasant gentleman patient of Dr. Gordillo. He has underlying history of kidney stones, hernias, PAD, colon cancer, AICD, admitted through the emergency room secondary to 5episodes of syncope and 2 falling episodes for the past 2 days. He had 3 episodes today of syncope, patient has been ill with intractable vomiting, diminished appetite, for the past 2 days. Patient has no diarrhea, however he has no output in his ostomy bag, patient does not have any abdominal pain, patient denies any fever no chills, he sees Dr. castillo cardiology, with no medication changes, Dr. Borja within the past 30 days, without any medication changes. Patient has premonition that he would pass out on 2 occasions only, patient denies any concussion, and no melena hematochezia, patient denies any chest pain no palpitations during this event, patient denies any sick contacts, patient denies any dysuria, he had what is suspected to be an angioplasty in the right lower extremity done by another vascular surgeon in [facility], this was done last 5 days prior to admission. Patient has no claudication at this time, however he is Cold feet, no lesions Extremities, and good dorsalis pedis pulses however they're both diminished. Patient does not have any alcohol dependency, his last beer was 2 weeks ago, no dysuria no back pain no hematuria, known history of large kidney stones with lithotripsy in the past. Patient denies any seizure episode, and no motor deficits upon recovery. In the emergency room patient was very hemoconcentrated, with WBC count of, 25.3, hemoglobin 20.0, creatinine 1.95 from a previous of 1.45 in 2013, BUN of 50, sodium 133, potassium 4.4, glucose 192, INR 1.1, urinalysis was negative for pyuria, however he's got 13 hyaline casts, specific gravity of 1.0-1, with some proteinuria noted. No transaminitis was noted, no lipase available for review, patient was admitted secondary to dehydration, and recurrent syncope, with consults to cardiology, EEG of the brain to be done, carotid Dopplers, echocardiogram, need pacemaker interrogation if needed consult to neurology as well. Review of Systems Constitutional: Reports as per HPI, Denies anorexia, Denies chills, Denies chronic headaches, Denies chronic pain, Denies daytime sleepiness, Denies fatigue, Denies fever, Denies lethargy, Denies malaise, Denies night sweats, Denies poor appetite, Denies sweats, Denies weakness, Denies weight gain, Denies weight loss Ears, nose, mouth and throat: Reports as per HPI Cardiovascular: Reports as per HPI, Reports syncope Respiratory: Reports as per HPI Gastrointestinal: Reports as per HPI, Denies abdominal pain, Denies belching, Denies bloating, Denies BRBPR, Denies change in bowel habits, Denies coffee ground emesis, Denies constipation, Denies diarrhea, Denies dyspepsia, Denies early satiety, Denies excessive gas, Denies heartburn, Denies hematemesis, Denies hematochezia, Denies indigestion, Denies jaundice, Denies lactose intolerance, Denies loss of appetite, Denies melena, Denies nausea, Denies vomiting Genitourinary: Reports as per HPI Musculoskeletal: Reports as per HPI, Denies arm numbness/tingling, Denies atrophy, Denies fractures, Denies frequent falls, Denies gait dysfunction, Denies hot joints, Denies leg numbness/tingling, Denies limitation of motion, Denies loss of height, Denies low back pain, Denies morning stiffness, Denies muscle cramps, Denies muscle weakness, Denies myalgias, Denies neck pain, Denies neck stiffness, Denies prior amputations, Denies redness of joints, Denies shooting arm pain, Denies shooting leg pain Integumentary: Reports as per HPI, Denies acne, Denies boils, Denies brittle nails, Denies change in hair/nails, Denies color changes, Denies darkening of skin, Denies depigmentation, Denies dryness, Denies foot/leg ulcers, Denies growths, Denies hirsutism, Denies lesions, Denies onychomycosis, Denies pruritus, Denies rash, Denies sores, Denies striae, Denies unusual bruising, Denies wounds Neurological: Reports as per HPI, Denies aphasia, Denies ataxia, Denies balance difficulties, Denies burning pain, Denies change in mentation, Denies change in smell/taste, Denies change in speech, Denies confusion, Denies convulsions, Denies double vision, Denies gait dysfunction, Denies head injury, Denies headaches, Denies hearing difficulties, Denies lack of coordination, Denies loss of vision, Denies memory loss, Denies migraines, Denies motor disturbance, Denies numbness, Denies paralysis, Denies paresthesias, Denies seizures, Denies sensory deficit, Denies spasticity, Denies syncope, Denies tic, Denies tingling, Denies transient paralysis, Denies tremors, Denies vertigo, Denies weakness, Denies visual changes Psychiatric: Reports as per HPI, Denies anhedonia, Denies anxiety, Denies anxiety attacks, Denies change in appetite, Denies change in libido, Denies change in sleep habits, Denies confusion, Denies depression, Denies difficulty concentrating, Denies disorientation, Denies hallucinations, Denies hopelessness, Denies hypersomnia, Denies insomnia, Denies irritability, Denies memory loss, Denies mood swings, Denies paranoia, Denies sadness/tearfulness, Denies sleep disturbances, Denies suicidal ideation Endocrine: Reports as per HPI, Denies cold intolerance, Denies deepening of the voice, Denies excessive sweating, Denies excessive thirst, Denies fatigue, Denies flushing, Denies heat intolerance, Denies high blood sugars, Denies increase in ring/shoe/hat size, Denies low blood sugars, Denies nocturia, Denies palpitations, Denies polydipsia, Denies polyphagia, Denies polyuria, Denies proptosis, Denies recent glucocorticoid use, Denies thyroid mass, Denies weight change Hematologic/Lymphatic: Reports as per HPI, Denies easy bleeding, Denies easy bruising, Denies lymphadenopathy, Denies lymphedema, Denies thrombophilia Allergic/Immunologic: Reports as per HPI, Denies allergic rhinitis, Denies anaphylaxis, Denies angioedema, Denies gluten intolerance, Denies persistent infections, Denies seasonal allergies, Denies urticaria, Denies wheezing Past Medical History Past Medical History: Cancer, Hyperlipidemia, Hypertension, Prostate Disorder Additional Past Medical History / Comment(s): HX COLON & SKIN CANCER , HAS COLOSTOMY- STATES NO RECTUM., ARRYTHMIA, AICD-ST.JINNY, GOUT, HX KIDNEY STONES., HAS GALL STONES., STATES 3 ABDOMINAL HERNIA'S & UNABLE TO HAVE SURGERY., WEARS SUPPORT STOCKINGS SINCE VEIN SURGERY., HX OF CONCUSSION WITH LOSS OF CONSCIOUSNESS, STATES HX OF PARALIZED FROM NECK DOWN AND THIS RESOLVED., HAS STIFF NECK AND BACK PAIN. , MACULAR DEGENERATION., BPH. History of Any Multi-Drug Resistant Organisms: None Reported Past Surgical History: Bowel Resection, Heart Catheterization With Stent, Hernia Repair, Orthopedic Surgery Additional Past Surgical History / Comment(s): stent x1, colostomy, rt wrist carpal tunnel, Kidney stones removed ., Left side kidney tube Past Anesthesia/Blood Transfusion Reactions: No Reported Reaction Date of Last Stent Placement:: unknown Type of Cardiac Device: AICD Device Placement Date:: st jinny unknown Past Psychological History: No Psychological Hx Reported Smoking Status: Former smoker Past Alcohol Use History: Rare Past Drug Use History: None Reported - Past Family History Mother Family Medical History: No Reported History Father Family Medical History: Congestive Heart Failure (CHF) Sister(s) Family Medical History: Unable to Obtain Additional Family Medical History / Comment(s): No no signs no daughters Brother(s) Family Medical History: Unable to Obtain (No brothers) Medications and Allergies Home Medications Medication Instructions Recorded Confirmed Type Dutasteride [Avodart] 0.5 mg PO DAILY 01/10/14 10/18/19 History Famotidine [Pepcid] 20 mg PO BID 01/10/14 10/18/19 History Simvastatin [Zocor] 20 mg PO HS 01/10/14 10/18/19 History Tamsulosin [Flomax] 0.4 mg PO DAILY 01/10/14 10/18/19 History Cholecalciferol (Vitamin D3) 2,000 unit PO BID 09/30/18 10/18/19 History [Vitamin D3] Febuxostat [Uloric] 40 mg PO DAILY 09/30/18 10/18/19 History Magnesium Oxide [Mag-Ox] 400 mg PO BID 09/30/18 10/18/19 History Sotalol [Betapace] 40 mg PO BID 09/30/18 10/18/19 History Fenofibrate 54 mg PO DAILY 12/10/18 10/18/19 History Ferrous Sulfate [Feosol] 325 mg PO BID 12/10/18 10/18/19 History Potassium Chloride [Klor-Con 20] 20 meq PO QAM 12/10/18 10/18/19 History Potassium Chloride [Klor-Con 20] 40 meq PO HS 12/10/18 10/18/19 History Apixaban [Eliquis] 2.5 mg PO BID 10/18/19 10/18/19 History Furosemide [Lasix] 40 mg PO DAILY 10/18/19 10/18/19 History Multivit-Min/FA/Lycopen/Lutein 1 tab PO DAILY 10/18/19 10/18/19 History [Centrum Silver Men Tablet] methylPREDNISolone Dose Pack See Taper PO DIRECTED 10/18/19 10/18/19 History [Medrol Dose Pack] Allergies Allergy/AdvReac Type Severity Reaction Status Date / Time No Known Allergies Allergy Verified 10/18/19 16:17 Physical Exam Vitals: Vital Signs Temp Pulse Resp BP Pulse Ox 10/18/19 12:41 68 20 112/70 98 10/18/19 11:41 20 10/18/19 11:36 97.1 F L 74 20 123/69 97 Intake and Output 10/17/19 10/18/19 10/18/19 22:59 06:59 14:59 Other: Weight 81.647 kg - Constitutional General appearance: average body habitus, cooperative, no acute distress - EENT Eyes: EOMI, PERRLA, normal appearance ENT: NA/AT, normal oropharynx - Neck Neck: normal ROM - Respiratory Respiratory: bilateral: CTA, negative: diminished, dullness, rales - Cardiovascular Rhythm: regular Heart sounds: normal: S1, S2 Abnormal Heart Sounds: no systolic murmur, no diastolic murmur, no rub, no S3 Gallop, no S4 Gallop, no click, no other - Gastrointestinal General gastrointestinal: normal bowel sounds, soft, tenderness (fullness in righlower quadrant pelvic region at femoral area, size of small coffee saucer with tenderness on palpation) - Integumentary Integumentary: decreased turgor, normal - Neurologic Neurologic: CNII-XII intact, focal deficits (None) - Musculoskeletal Musculoskeletal: strength equal bilaterally Results CBC & Chem 7: 10/20/19 05:50 10/20/19 05:50 Labs: Abnormal Lab Results - Last 24 Hours (Table) 10/18/19 10/18/19 10/18/19 Range/Units 12:05 12:05 13:00 WBC 25.3 H (3.8-10.6) k/uL RBC 6.09 H (4.30-5.90) m/uL Hgb 20.0 H* (13.0-17.5) gm/dL Hct 59.1 H* (39.0-53.0) % Neutrophils # 21.4 H (1.3-7.7) k/uL Lymphocytes # 0.7 L (1.0-4.8) k/uL Monocytes # 2.5 H (0-1.0) k/uL Basophils # 0.3 H (0-0.2) k/uL Sodium 133 L (137-145) mmol/L Chloride 96 L (98-107) mmol/L Carbon Dioxide 21 L (22-30) mmol/L BUN 50 H (9-20) mg/dL Creatinine 1.95 H (0.66-1.25) mg/dL Glucose 192 H (74-99) mg/dL Total Bilirubin 2.1 H (0.2-1.3) mg/dL Urine Protein 1+ H (Negative) Hyaline Casts 13 H (0-2) /lpf Urine Mucus Rare H (None) /hpf Laboratory Results WBC 25.3 k/uL (3.8-10.6) H 10/18/19 12:05 RBC 6.09 m/uL (4.30-5.90) H 10/18/19 12:05 Hgb 20.0 gm/dL (13.0-17.5) H* 10/18/19 12:05 Hct 59.1 % (39.0-53.0) H* 10/18/19 12:05 MCV 97.1 fL (80.0-100.0) 10/18/19 12:05 MCH 32.9 pg (25.0-35.0) 10/18/19 12:05 MCHC 33.9 g/dL (31.0-37.0) 10/18/19 12:05 RDW 14.2 % (11.5-15.5) 10/18/19 12:05 Plt Count 239 k/uL (150-450) 10/18/19 12:05 Neutrophils % 84 % 02/11/20 12:05 Lymphocytes % 3 % 10/18/19 12:05 Monocytes % 10 % 10/18/19 12:05 Eosinophils % 0 % 10/18/19 12:05 Basophils % 1 % 10/18/19 12:05 Neutrophils # 21.4 k/uL (1.3-7.7) H 10/18/19 12:05 Lymphocytes # 0.7 k/uL (1.0-4.8) L 10/18/19 12:05 Monocytes # 2.5 k/uL (0-1.0) H 10/18/19 12:05 Eosinophils # 0.1 k/uL (0-0.7) 10/18/19 12:05 Basophils # 0.3 k/uL (0-0.2) H 10/18/19 12:05 PT 10.9 sec (9.0-12.0) 10/18/19 13:10 INR 1.1 (<1.2) 10/18/19 13:10 APTT 22.3 sec (22.0-30.0) 10/18/19 13:10 Sodium 133 mmol/L (137-145) L 10/18/19 12:05 Potassium 4.4 mmol/L (3.5-5.1) 10/18/19 12:05 Chloride 96 mmol/L (98-107) L 10/18/19 12:05 Carbon Dioxide 21 mmol/L (22-30) L 10/18/19 12:05 Anion Gap 16 mmol/L 10/18/19 12:05 BUN 50 mg/dL (9-20) H 10/18/19 12:05 Creatinine 1.95 mg/dL (0.66-1.25) H 10/18/19 12:05 Est GFR (CKD-EPI)AfAm 37 (>60 ml/min/1.73 sqM) 10/18/19 12:05 Est GFR (CKD-EPI)NonAf 32 (>60 ml/min/1.73 sqM) 10/18/19 12:05 Glucose 192 mg/dL (74-99) H 10/18/19 12:05 Calcium 9.7 mg/dL (8.4-10.2) 10/18/19 12:05 Total Bilirubin 2.1 mg/dL (0.2-1.3) H 10/18/19 12:05 AST 29 U/L (17-59) 10/18/19 12:05 ALT 19 U/L (4-49) 10/18/19 12:05 Alkaline Phosphatase 60 U/L (38-126) 10/18/19 12:05 Total Protein 7.3 g/dL (6.3-8.2) 10/18/19 12:05 Albumin 4.1 g/dL (3.5-5.0) 10/18/19 12:05 Urine Color Yellow 10/18/19 13:00 Urine Appearance Cloudy (Clear) 10/18/19 13:00 Urine pH 5.5 (5.0-8.0) 10/18/19 13:00 Ur Specific [place] 1.021 (1.001-1.035) 10/18/19 13:00 Urine Protein 1+ (Negative) H 10/18/19 13:00 Urine Glucose (UA) Negative (Negative) 10/18/19 13:00 Urine Ketones Negative (Negative) 10/18/19 13:00 Urine Blood Negative (Negative) 10/18/19 13:00 Urine Nitrite Negative (Negative) 10/18/19 13:00 Urine Bilirubin Negative (Negative) 10/18/19 13:00 Urine Urobilinogen <2.0 mg/dL (<2.0) 10/18/19 13:00 Ur Leukocyte Esterase Negative (Negative) 10/18/19 13:00 Urine RBC <1 /hpf (0-5) 10/18/19 13:00 Urine WBC 1 /hpf (0-5) 10/18/19 13:00 Ur Squamous Epith Cells <1 /hpf (0-4) 10/18/19 13:00 Hyaline Casts 13 /lpf (0-2) H 10/18/19 13:00 Urine Mucus Rare /hpf (None) H 10/18/19 13:00 Thrombosis Risk Factor Assmnt - DVT/VTE Prophylaxis DVT/VTE Prophylaxis: Pharmacologic Prophylaxis ordered, Low risk, early ambulation encouraged - Choose All That Apply Each Risk Factor Represents 2 Points: Malignancy Each Risk Factor Represents 3 Points: Age 75 years or older Thrombosis Risk Factor Assessment Total Risk Factor Score: 5 Thrombosis Risk Factor Assessment Level: High Risk Assessment and Plan Plan: 1. Recurrent episodes of multiple syncope, without any concussion, patient has an AICD, etiologies could be either cardiac or neurologic , no hypotension noted during his initial ER evaluation patient has an eye AICD which arm was followed by Dr. anna cardiology, patient would also have an EEG of the brain, consult with cardiology and neurology, carotid Dopplers, patient has significant dehydration prior to this episode, patient would be fluid resuscitated, no ongoing lower GI losses except for nausea and vomiting, lipase to be done,, patient has no misfiring of AICD during this episode, we will check orthostasis in the next 24-48 hours once stabilized, 2. Hemoconcentration with elevated hematocrit, possibly secondary, secondary to volume contraction, IV fluids to be done, might need further evaluation, to include iron studies for hemochromatocytosis 3. Pacemaker placement with AICD most likely secondary to sick sinus syndrome,Patient is not on any long-term anticoagulation, no diagnoses of atrial fibrillation per patient await cardiology consultation 3. Acute kidney insufficiency CK D stage III,, IV hydration, baseline creatinine 1.4-1.5 on admission it was 1.95, avoid hypotension and nephrotoxic agents 4. Bilateral inguinal hernia, with small bowel in the right inguinal hernia, this cannot be surgically operated per patient secondary to his colostomy bag, monitor for strangulation, there is pain at the right lower quadrant area, will consult general surgery Dr. Joe 5. Leukocytosis, possibly secondary to acute phase reactant, pro-calcitonin level, urinalysis negative, cannot rule out chemical pneumonitis secondary to the vomiting episodes, chest x-ray failed to reveal any acute infiltrates, continue to monitor clinically no IV antibiotics needed at this time 6. Perihepatic ascites, unknown significance, cannot rule out cirrhosis, no transaminitis noted on laboratories has hyperbilki 7. Known history of colon cancer diagnosed 2016, with 11 surgeries related to complications including obstruction, last major surgery was in 2016 8. PAD, with recent angioplasty done on the right leg 9. Inguinal hernias, bilateral, chronic, with right inguinal hernia with small bowel possibile incarceration right side.we would monitor for signs of strangulation which cannot be ruled out in the CAT scan consult Dr. Joe 10. History of nephrolithiasis, no current symptoms, Dr. Bryan in the past with prior lithotripsy 7. Patient's ambulatory status prior to admission was without any assist devices, no O2 requirements prior to admission 11. Impaired random blood sugars, possibly prediabetes I-Sarai sugar diabetes, check A1c and Accu-Cheks 11. Hyperbilirubinemia, without other transaminitis, possibly related to Gilbert's, we would evaluate for fractionation, doubt hemolysis
[2019-10-18] MEDS ORDERED: ONDANSETRON 4 MG/2 ML VIAL IVP PRN (15:34)
[2019-10-18] MEDS ORDERED: NALOXONE 0.4 MG/ML 1 ML VIAL IV PRN (15:34)
--- NOTE | 2019-10-18 16:05 | US ---
EXAMINATION TYPE: US carotid duplex BILAT DATE OF EXAM: 10/18/2019 COMPARISON: NONE CLINICAL HISTORY: syncope. syncope EXAM MEASUREMENTS: RIGHT: Peak Systolic Velocity (PSV) cm/sec ----- Right CCA: 45.5 ----- Right ICA: 68.8 ----- Right ECA: 51.9 ICA/CCA ratio: 1.5 RIGHT: End Diastole cm/sec ----- Right CCA: 7.8 ----- Right ICA: 17.4 ----- Right ECA: 0.0 LEFT: Peak Systolic Velocity (PSV) cm/sec ----- Left CCA: 46.2 ----- Left ICA: 79.0 ----- Left ECA: 47.0 ICA/CCA ratio: 1.7 LEFT: End Diastole cm/sec ----- Left CCA: 8.6 ----- Left ICA: 20.8 ----- Left ECA: 0.0 VERTEBRALS (direction of flow): Right Vertebral: Antegrade Left Vertebral: Antegrade Rhythm: Normal Mild plaque bilateral bifurcations. No evidence of significant stenosis. IMPRESSION: Mild degree of grayscale atheromatous plaquing with no sonographically evident hemodynam ically significant stenosis within either visualized carotid arterial system. Criteria for Assigning % of Stenosis / Diameter reduction (Estimation based on the indirect measurements of the internal carotid artery velocities (ICA PSV). 1. Normal (no stenosis)=ICA PSV < 125 cm/s: ratio < 2.0: ICA EDV<40 cm/s. 2. Less than 50% stenosis=ICA PSV < 125 cm/s: ratio < 2.0: ICA EDV<40 cm/s. 3. 50 to 69% stenosis=ICA PSV of 125 to 230 cm/s: ration 2.0 ? 4.0: ICA EDV 40-100 cm/s. 4. Greater than 70% stenosis to near occlusion= ICA PSV > 230 cm/s: ratio > 4.0: ICA EDV > 100 cm/s. 5. Near occlusion= ICA PSV velocities may be low or undetectable: variable ratio and ICA EDV. 6. Total occlusion=unable to detect flow.
--- NOTE | 2019-10-18 16:35 | EEG ---
ELECTROENCEPHALOGRAM REPORT DATE OF SERVICE: 10/18/2019. PREAMBLE: This is an 78-year-old male who presents with syncopal episodes. Also has sacral and abdominal pain. The patient has history of prostate cancer. EEG FINDINGS: A routine 21-channel awake digital EEG recording was accomplished utilizing the 10/20 international system with bipolar and referential montages. Background consists of well developed, well regulated, moderate voltage activity in 8-9 Hz alpha. Background is posterior-dominant and reactive to eye opening and closing. Some drowsiness was seen intermittently during this study with theta frequency rhythm. Deeper stages of sleep were not seen. Photic driving response was not seen. No focal or generalized epileptiform activity was seen. IMPRESSION: This is a normal awake and drowsy EEG. No epileptiform activity was seen. MMODL / IJN: [id number] / MTDD
[2019-10-18] MEDS: SODIUM CHLORIDE 0.9% 1,000 ML IV SCH (16:58)
--- NOTE | 2019-10-18 17:01 | P.GSCN ---
History of Present Illness Consult date: 10/18/19 Reason for Consult: Femoral hernia History of present illness: The patient is an 78 yo man who presented with multiple episodes of passing out and falling. He was found to be very dehydrated. During his evaluation he was found to have a reducible hernia in the right groin which was tender. He's had lower abdominal discomfort for many years. He also has known hernias. The one in the right groin may have been more tender the last week or so. The patient's had recurrent nausea and vomiting the last few days with decreased ostomy outpu t. His is been unable to keep any fluids down. He was told in the past he could not have elective hernia repair because of scar tissue. Review of Systems All systems: negative Past Medical History Past Medical History: Cancer, Hyperlipidemia, Hypertension, Prostate Disorder Additional Past Medical History / Comment(s): HX COLON & SKIN CANCER , HAS COLOSTOMY- STATES NO RECTUM., ARRYTHMIA, AICD-ST.JINNY, GOUT, HX KIDNEY STONES., HAS GALL STONES., STATES 3 ABDOMINAL HERNIA'S & UNABLE TO HAVE SURGERY., WEARS SUPPORT STOCKINGS SINCE VEIN SURGERY., HX OF CONCUSSION WITH LOSS OF CONSCIOUSNESS, STATES HX OF PARALIZED FROM NECK DOWN AND THIS RESOLVED., HAS STIFF NECK AND BACK PAIN. , MACULAR DEGENERATION., BPH. History of Any Multi-Drug Resistant Organisms: None Reported Past Surgical History: Bowel Resection, Heart Catheterization With Stent, Hernia Repair, Orthopedic Surgery Additional Past Surgical History / Comment(s): stent x1, colostomy, rt wrist carpal tunnel, Kidney stones removed ., Left side kidney tube Past Anesthesia/Blood Transfusion Reactions: No Reported Reaction Date of Last Stent Placement:: unknown Type of Cardiac Device: AICD Device Placement Date:: st jinny unknown Past Psychological History: No Psychological Hx Reported Smoking Status: Former smoker Past Alcohol Use History: Rare Past Drug Use History: None Reported - Past Family History Mother Family Medical History: No Reported History Father Family Medical History: Congestive Heart Failure (CHF) Sister(s) Family Medical History: Unable to Obtain Additional Family Medical History / Comment(s): No no signs no daughters Brother(s) Family Medical History: Unable to Obtain (No brothers) Medications and Allergies Home Medications Medication Instructions Recorded Confirmed Type Dutasteride [Avodart] 0.5 mg PO DAILY 01/10/14 10/18/19 History Famotidine [Pepcid] 20 mg PO BID 01/10/14 10/18/19 History Simvastatin [Zocor] 20 mg PO HS 01/10/14 10/18/19 History Tamsulosin [Flomax] 0.4 mg PO DAILY 01/10/14 10/18/19 History Cholecalciferol (Vitamin D3) 2,000 unit PO BID 09/30/18 10/18/19 History [Vitamin D3] Febuxostat [Uloric] 40 mg PO DAILY 09/30/18 10/18/19 History Magnesium Oxide [Mag-Ox] 400 mg PO BID 09/30/18 10/18/19 History Sotalol [Betapace] 40 mg PO BID 09/30/18 10/18/19 History Fenofibrate 54 mg PO DAILY 12/10/18 10/18/19 History Ferrous Sulfate [Feosol] 325 mg PO BID 12/10/18 10/18/19 History Potassium Chloride [Klor-Con 20] 20 meq PO [facility] 12/10/18 10/18/19 History Potassium Chloride [Klor-Con 20] 40 meq PO HS 12/10/18 10/18/19 History Apixaban [Eliquis] 2.5 mg PO BID 10/18/19 10/18/19 History Furosemide [Lasix] 40 mg PO DAILY 10/18/19 10/18/19 History Multivit-Min/FA/Lycopen/Lutein 1 tab PO DAILY 10/18/19 10/18/19 History [Centrum Silver Men Tablet] methylPREDNISolone Dose Pack See Taper PO DIRECTED 10/18/19 10/18/19 History [Medrol Dose Pack] Allergies Allergy/AdvReac Type Severity Reaction Status Date / Time No Known Allergies Allergy Verified 10/18/19 16:17 Surgical - Exam Osteopathic Statement: *. No significant issues noted on an osteopathic st ructural exam other than those noted in the History and Physical/Consult. Vital Signs Pulse Ox 96 10/18/19 11:35 - General Appears ill and dehydrated - Eyes normal ocular movement - ENT Mucous membranes dry - Neck trachea midline - Respiratory normal respiratory effort, clear to auscultation - Cardiovascular Rhythm: regular - Abdomen Ostomy appliance in the upper mid abdomen without any output in the bag Abdomen: soft, bowel sounds, surgical scars - Genitourinary Firm tender mass right groin which is irreducible, no mass left groin Results - Labs 10/18/19 12:05 10/18/19 12:05 Abnormal Lab Results - Last 24 Hours (Table) 10/18/19 10/18/19 10/18/19 Range/Units 12:05 12:05 13:00 WBC 25.3 H (3.8-10.6) k/uL RBC 6.09 H (4.30-5.90) m/uL Hgb 20.0 H* (13.0-17.5) gm/dL Hct 59.1 H* (39.0-53.0) % Neutrophils # 21.4 H (1.3-7.7) k/uL Lymphocytes # 0.7 L (1.0-4.8) k/uL Monocytes # 2.5 H (0-1.0) k/uL Basophils # 0.3 H (0-0.2) k/uL Sodium 133 L (137-145) mmol/L Chloride 96 L (98-107) mmol/L Carbon Dioxide 21 L (22-30) mmol/L BUN 50 H (9-20) mg/dL Creatinine 1.95 H (0.66-1.25) mg/dL Glucose 192 H (74-99) mg/dL Total Bilirubin 2.1 H (0.2-1.3) mg/dL Urine Protein 1+ H (Negative) Hyaline Casts 13 H (0-2) /lpf Urine Mucus Rare H (None) /hpf Diabetes panel 10/18/19 Range/Units 12:05 Sodium 133 L (137-145) mmol/L Potassium 4.4 (3.5-5.1) mmol/L Chloride 96 L (98-107) mmol/L Carbon Dioxide 21 L (22-30) mmol/L BUN 50 H (9-20) mg/dL Creatinine 1.95 H (0.66-1.25) mg/dL Glucose 192 H (74-99) mg/dL Calcium 9.7 (8.4-10.2) mg/dL AST 29 (17-59) U/L ALT 19 (4-49) U/L Alkaline Phosphatase 60 (38-126) U/L Total Protein 7.3 (6.3-8.2) g/dL Albumin 4.1 (3.5-5.0) g/dL Calcium panel 10/18/19 Range/Units 12:05 Calcium 9.7 (8.4-10.2) mg/dL Albumin 4.1 (3.5-5.0) g/dL Pituitary panel 10/18/19 Range/Units 12:05 Sodium 133 L (137-145) mmol/L Potassium 4.4 (3.5-5.1) mmol/L Chloride 96 L (98-107) mmol/L Carbon Dioxide 21 L (22-30) mmol/L BUN 50 H (9-20) mg/dL Creatinine 1.95 H (0.66-1.25) mg/dL Glucose 192 H (74-99) mg/dL Calcium 9.7 (8.4-10.2) mg/dL Adrenal panel 10/18/19 Range/Units 12:05 Sodium 133 L (137-145) mmol/L Potassium 4.4 (3.5-5.1) mmol/L Chloride 96 L (98-107) mmol/L Carbon Dioxide 21 L (22-30) mmol/L BUN 50 H (9-20) mg/dL Creatinine 1.95 H (0.66-1.25) mg/dL Glucose 192 H (74-99) mg/dL Calcium 9.7 (8.4-10.2) mg/dL Total Bilirubin 2.1 H (0.2-1.3) mg/dL AST 29 (17-59) U/L ALT 19 (4-49) U/L Alkaline Phosphatase 60 (38-126) U/L Total Protein 7.3 (6.3-8.2) g/dL Albumin 4.1 (3.5-5.0) g/dL - Imaging CT scan - abdomen: report reviewed, image reviewed Assessment and Plan (1) Incarcerated femoral hernia Current Visit: Yes Status: Acute Code(s): K41.30 - UNIL FEMORAL HERNIA, W OBST, W/O GANGRENE, NOT SPCF RECUR SNOMED Code(s): 627352262 (2) Dehydration Current Visit: Yes Status: Acute Code(s): E86.0 - DEHYDRATION SNOMED Code(s): 83234051 (3) Syncope Current Visit: Yes Status: Acute Code(s): R55 - SYNCOPE AND COLLAPSE SNOMED Code(s): 518890343 Plan: This hernia was concerning for a small bowel obstruction. We'll hold his Plavix. Hydrate. IV antibiotics. I will discuss case with primary care. Likely he will need a groin exploration tomorrow. If there is any ischemic small bowel which needs to be resected, unfortunately the hernia could not be repaired at the same time with a permanent mesh. Further recommendations to follow.
[2019-10-18 17:29] LABS: Bilirubin, Delta 0.4 mg/dL (0.0-0.2); Bilirubin,Unconjugated 1.6 mg/dL (0.0-1.1)
[2019-10-18] MEDS: PIPERACILLIN-TAZOBACTAM 3.375 GM in SODIUM CHLORIDE 0.9% 100 ML IVPB SCH (19:49)
[2019-10-19] MEDS: SODIUM CHLORIDE 0.9% 1,000 ML IV SCH ×4 (00:02→23:44)
[2019-10-19] MEDS: PIPERACILLIN-TAZOBACTAM 3.375 GM in SODIUM CHLORIDE 0.9% 100 ML IVPB SCH ×4 (00:02→23:46)
[2019-10-19 01:03] LABS: Glucose,Whole Blood 172 mg/dL (75-99)
[2019-10-19 01:37] LABS: MCH 33.5 pg (25.0-35.0); MCHC 34.1 g/dL (31.0-37.0); MCV 98.2 fL (80.0-100.0); Mean Platelet Volume 8.4; Platelet Count 218 k/uL (150-450); RDW 14.2 % (11.5-15.5); WBC 42.1 k/uL (3.8-10.6)
[2019-10-19 01:43] LABS: Calcium 8.1 mg/dL (8.4-10.2)
[2019-10-19 01:49] LABS: Potassium 4.9 mmol/L (3.5-5.1)
[2019-10-19 02:18] LABS: HCT 63.8 % (39.0-53.0); HGB 21.8 gm/dL (13.0-17.5)
[2019-10-19] MEDS ORDERED: LACTATED RINGERS 1,000 ML IV ONE (03:07)
[2019-10-19] MEDS ORDERED: LACTATED RINGERS 1,000 ML IV SCH (03:15)
[2019-10-19 03:47] LABS: Band Neutrophils % 3 %; Lymphocytes # (M) 4.21 k/uL (1.0-4.8); Monocytes # (M) 1.26 k/uL (0-1.0); Neutrophils % (M) 84 %; Nucleated Red Blood Cells 0 /100 WBC (0-0); Total Cells Counted 100
[2019-10-19 05:58] LABS: Albumin 2.4 g/dL (3.5-5.0); Calcium 8.1 mg/dL (8.4-10.2); Total Bilirubin 2.5 mg/dL (0.2-1.3); Total Protein 4.9 g/dL (6.3-8.2)
[2019-10-19] MEDS ORDERED: NOREPINEPHRINE 4 MG in SODIUM CHLORIDE 0.9% 250 ML IV SCH (06:00)
[2019-10-19] MEDS ORDERED: HYDROmorphone 0.5 MG/0.5 ML SYRINGE IVP STA (06:12)
[2019-10-19 06:13] LABS: Potassium 5.3 mmol/L (3.5-5.1)
--- NOTE | 2019-10-19 06:55 | P.PN ---
Subjective Progress Note Date: 10/19/19 The patient worsened through the night. He developed hypotension and was moved to the ICU. At that time he had significant hypothermia with a core body temperature of only 92. He was given fluid boluses. And his blood pressure improved. As his temperature normalized, however he began dropping his pres sures again. He is given additional fluid boluses and then started on levophed with blood pressures in the 90s. Now in addition to his groin discomfort is complaining of abdominal pain Objective - Vital Signs Vital signs: Vital Signs Temp 99.1 F 10/19/19 05:00 Pulse 88 10/19/19 06:00 Resp 14 10/19/19 06:00 BP 86/43 10/19/19 06:00 Pulse Ox 96 10/19/19 06:00 Intake & Output 10/18/19 10/18/19 10/19/19 06:59 18:59 06:59 Intake Total 1520 Output Total 320 Balance 1200 Weight 81.647 kg Intake: IV 1520 Lactated Ringers 1,000 ml 1000 @ 999 mls/hr IV .Q1H1M ONE Rx#:[id number] Sodium Chloride 0.9% 1, 520 000 ml @ 130 mls/hr IV . Q7H42M DENAE Rx#:[id number] Output: Urine 320 Other: Voiding Method Indwelling Catheter - Constitutional Constitutional Comment(s): Appears ill General appearance: Present: cooperative - Respiratory Respiratory: bilateral: CTA, diminished (At the bases) - Cardiovascular Rhythm: irregularly irregular - Gastrointestinal Gastrointestinal Comment(s): Right femoral hernia, moderately tender. No overlying cellulitis General gastrointestinal: Present: distended, tenderness (Mild diffuse tenderness, this was not present yesterday) - Labs CBC & Chem 7: 10/19/19 01:20 10/19/19 05:26 Labs: Abnormal Lab Results - Last 24 Hours (Table) 10/18/19 10/18/19 10/18/19 Range/Units 12:05 12:05 13:00 WBC 25.3 H (3.8-10.6) k/uL RBC 6.09 H (4.30-5.90) m/uL Hgb 20.0 H* (13.0-17.5) gm/dL Hct 59.1 H* (39.0-53.0) % Neutrophils # 21.4 H (1.3-7.7) k/uL Neutrophils # (Manual) (1.3-7.7) k/uL Lymphocytes # 0.7 L (1.0-4.8) k/uL Monocytes # 2.5 H (0-1.0) k/uL Monocytes # (Manual) (0-1.0) k/uL Basophils # 0.3 H (0-0.2) k/uL Sodium 133 L (137-145) mmol/L Potassium (3.5-5.1) mmol/L Chloride 96 L (98-107) mmol/L Carbon Dioxide 21 L (22-30) mmol/L BUN 50 H (9-20) mg/dL Creatinine 1.95 H (0.66-1.25) mg/dL Glucose 192 H (74-99) mg/dL POC Glucose (mg/dL) (75-99) mg/dL Plasma Lactic Acid Carl (0.7-2.0) mmol/L Calcium (8.4-10.2) mg/dL Total Bilirubin 2.1 H (0.2-1.3) mg/dL Unconjugated Bilirubin (0.0-1.1) mg/dL Delta Bilirubin (0.0-0.2) mg/dL AST (17-59) U/L Alkaline Phosphatase (38-126) U/L Total Protein (6.3-8.2) g/dL Albumin (3.5-5.0) g/dL Urine Protein 1+ H (Negative) Hyaline Casts 13 H (0-2) /lpf Urine Mucus Rare H (None) /hpf 10/18/19 10/19/19 10/19/19 Range/Units 15:08 01:01 01:20 WBC 42.1 H (3.8-10.6) k/uL RBC 6.50 H (4.30-5.90) m/uL Hgb 21.8 H* (13.0-17.5) gm/dL Hct 63.8 H* (39.0-53.0) % Neutrophils # (1.3-7.7) k/uL Neutrophils # (Manual) 36.60 H (1.3-7.7) k/uL Lymphocytes # (1.0-4.8) k/uL Monocytes # (0-1.0) k/uL Monocytes # (Manual) 1.26 H (0-1.0) k/uL Basophils # (0-0.2) k/uL Sodium (137-145) mmol/L Potassium (3.5-5.1) mmol/L Chloride (98-107) mmol/L Carbon Dioxide (22-30) mmol/L BUN (9-20) mg/dL Creatinine (0.66-1.25) mg/dL Glucose (74-99) mg/dL POC Glucose (mg/dL) 172 H (75-99) mg/dL Plasma Lactic Acid Carl (0.7-2.0) mmol/L Calcium (8.4-10.2) mg/dL Total Bilirubin 2.0 H (0.2-1.3) mg/dL Unconjugated Bilirubin 1.6 H (0.0-1.1) mg/dL Delta Bilirubin 0.4 H (0.0-0.2) mg/dL AST (17-59) U/L Alkaline Phosphatase (38-126) U/L Total Protein (6.3-8.2) g/dL Albumin (3.5-5.0) g/dL Urine Protein (Negative) Hyaline Casts (0-2) /lpf Urine Mucus (None) /hpf 10/19/19 10/19/19 10/19/19 Range/Units 01:20 05:26 05:45 WBC (3.8-10.6) k/uL RBC (4.30-5.90) m/uL Hgb (13.0-17.5) gm/dL Hct (39.0-53.0) % Neutrophils # (1.3-7.7) k/uL Neutrophils # (Manual) (1.3-7.7) k/uL Lymphocytes # (1.0-4.8) k/uL Monocytes # (0-1.0) k/uL Monocytes # (Manual) (0-1.0) k/uL Basophils # (0-0.2) k/uL Sodium 131 L 132 L (137-145) mmol/L Potassium 5.3 H (3.5-5.1) mmol/L Chloride (98-107) mmol/L Carbon Dioxide 13 L 13 L (22-30) mmol/L BUN 58 H 59 H (9-20) mg/dL Creatinine 2.28 H 2.59 H (0.66-1.25) mg/dL Glucose 164 H 137 H (74-99) mg/dL POC Glucose (mg/dL) (75-99) mg/dL Plasma Lactic Acid Carl 4.0 H* (0.7-2.0) mmol/L Calcium 8.1 L 8.1 L (8.4-10.2) mg/dL Total Bilirubin 2.5 H (0.2-1.3) mg/dL Unconjugated Bilirubin (0.0-1.1) mg/dL Delta Bilirubin (0.0-0.2) mg/dL AST 63 H (17-59) U/L Alkaline Phosphatase 30 L (38-126) U/L Total Protein 4.9 L (6.3-8.2) g/dL Albumin 2.4 L (3.5-5.0) g/dL Urine Protein (Negative) Hyaline Casts (0-2) /lpf Urine Mucus (None) /hpf Assessment and Plan (1) Incarcerated femoral hernia Current Visit: Yes Status: Acute Code(s): K41.30 - UNIL FEMORAL HERNIA, W OBST, W/O GANGRENE, NOT SPCF RECUR SNOMED Code(s): 669651434 (2) Dehydration Current Visit: Yes Status: Acute Code(s): E86.0 - DEHYDRATION SNOMED Code(s): 43524446 (3) Syncope Current Visit: Yes Status: Acute Code(s): R55 - SYNCOPE AND COLLAPSE SNOMED Code(s): 849623991 (4) Sepsis Current Visit: Yes Status: Acute Code(s): A41.9 - SEPSIS, UNSPECIFIED ORGANISM SNOMED Code(s): 19370522 Plan: Patient will go to the OR for laparotomy. Possible small bowel resection. The procedure, risks, complications were discussed with him. Questions were encouraged and answered. Prognosis is very guarded due to multiple medical comorbidities.
[2019-10-19 06:56] LABS: MCH 32.5 pg (25.0-35.0); MCHC 32.8 g/dL (31.0-37.0); MCV 99.2 fL (80.0-100.0); Mean Platelet Volume 8.6; Platelet Count 197 k/uL (150-450); RDW 14.3 % (11.5-15.5); WBC 43.1 k/uL (3.8-10.6)
[2019-10-19 07:19] LABS: RBC 6.92 m/uL (4.30-5.90)
[2019-10-19] MEDS ORDERED: PHENYLEPHRINE-0.9% NACL SYG 1 MG/10 ML SYRINGE ONE (07:21)
[2019-10-19] MEDS ORDERED: EPINEPHrine 10 ML SYRINGE (0.1 MG/ML) ONE (07:21)
[2019-10-19] MEDS ORDERED: ROCURONIUM BROMIDE 10 MG/ML 5 ML VIAL IV ONE (07:21)
[2019-10-19] MEDS ORDERED: ceFAZolin 1,000 MG VIAL ONE (07:21)
[2019-10-19] MEDS ORDERED: ETOMIDATE 2 MG/ML 10 ML VIAL ONE (07:21)
[2019-10-19 07:23] LABS: HCT 68.4 % (39.0-53.0); HGB 23.2 gm/dL (13.0-17.5)
--- NOTE | 2019-10-19 08:00 | ECHOF ---
Referral Reason:LVF MEASUREMENTS -------- HEIGHT: 175.3 cm WEIGHT: 81.6 kg BP: 154/84 RVIDd: 3.1 cm (< 3.3) IVSd: 1.4 cm (0.6 - 1.1) LVIDd: 4.8 cm (3.9 - 5.3) LVPWd: 1.3 cm (0.6 - 1.1) IVSs: 1.8 cm LVIDs: 3.5 cm LVPWs: 1.5 cm LA Diam: 3.3 cm (2.7 - 3.8) LAESV Index (A-L): 11.75 ml/m Ao Diam: 3.5 cm (2.0 - 3.7) AV Cusp: 2.0 cm (1.5 - 2.6) MV EXCURSION: 15.271 mm (> 18.000) MV EF SLOPE: 103 mm/s (70 - 150) EPSS: 1.0 cm MV E Damon: 0.96 m/s MV DecT: 160 ms MV A Damon: 0.37 m/s MV E/A Ratio: 2.56 AR PHT: 1091 ms RAP: 5.00 mmHg RVSP: 28.15 mmHg FINDINGS -------- AICD This was a technically good study. The left ventricular size is normal. There is moderate concentric left ventricular hypertrophy. O verall left ventricular systolic function is moderately impaired with, an EF between 35 - 40 %. Api barrett lateral LV wall motion is hypokinetic. Apical septum LV wall motion is hypokinetic. The right ventricle is normal in size. Normal LA size by volume 22+/-6 ml/m2. The right atrium is normal in size. Interatrial and interventricular septum intact. There is mild aortic valve sclerosis. There is mild aortic regurgitation. The mitral valve leaflets are mildly thickened. Mild mitral annular calcification present. There is trace to mild mitral regurgitation. Mild tricuspid regurgitation present. Right ventricular systolic pressure is normal at < 35 mmHg. Trace/mild (physiologic) pulmonic regurgitation. The aortic root size is normal. Normal inferior vena cava with normal inspiratory collapse consistent with estimated right atrial pre ssure of 5 mmHg. There is no pericardial effusion. CONCLUSIONS -------- 1. AICD 2. This was a technically good study. 3. The left ventricular size is normal. 4. There is moderate concentric left ventricular hypertrophy. 5. The right ventricle is normal in size. 6. Normal LA size by volume 22+/-6 ml/m2. 7. The right atrium is normal in size. 8. Interatrial and interventricular septum intact. 9. There is mild aortic valve sclerosis. 10. There is mild aortic regurgitation. 11. The mitral valve leaflets are mildly thickened. 12. Mild mitral annular calcification present. 13. There is trace to mild mitral regurgitation. 14. Mild tricuspid regurgitation present. 15. Right ventricular systolic pressure is normal at < 35 mmHg. 16. Trace/mild (physiologic) pulmonic regurgitation. 17. The aortic root size is normal. 18. Normal inferior vena cava with normal inspiratory collapse consistent with estimated right atrial pressure of 5 mmHg. 19. There is no pericardial effusion. DRYING MACHINE BACK TENDER: Sena Candelario RDCS
[2019-10-19 08:16] LABS: Band Neutrophils % 4 %; Metamyelocytes # (M) 0.86 k/uL (0); Metamyelocytes % 2 %; Monocytes # (M) 2.59 k/uL (0-1.0); Myelocytes # (M) 0.86 k/uL (0); Myelocytes % 2 %; Nucleated Red Blood Cells 0 /100 WBC (0-0)
[2019-10-19 08:18] LABS: Lymphocytes # (M) 1.72 k/uL (1.0-4.8); Neutrophils % (M) 83 %; Total Cells Counted 200
[2019-10-19 08:20] LABS: Poikilocytosis (M) Present
[2019-10-19] MEDS ORDERED: SODIUM CHLORIDE 0.9% 50 ML with ceFAZolin 2,000 MG IV ONE ×2 (08:20)
[2019-10-19] MEDS ORDERED: SODIUM CHLORIDE 0.9% 1,000 ML IV ONE ×2 (08:40)
[2019-10-19] MEDS ORDERED: HEPARIN SODIUM,PORCINE 5,000 UNIT/ML 1 ML VIAL SQ SCH (09:00)
--- NOTE | 2019-10-19 09:01 | P.ANPRN ---
Procedure Note - Anesthesia - Invasive Line Left Central Line Time Out Performed: Yes (emergent) Date of Procedure: 10/19/19 Time of Procedure: 08:12 Location of Patient: OR Preparation: Sterile Prep, Sterile Dressing Ultrasound Used: No (Image not Saved) Image Stored and Saved: No Narrative: Central line placement per sterile protocol utilized. Left IJ prepped, draped. 18g angio +CVP +Jwire +uneventful dilation and introduction left IJ TLC. All three lumens bled and flushed. Biopatch and dressed Right Arterial Line Time Out Performed: Yes (emergent) Date of Procedure: 10/19/19 Time of Procedure: 08:04 Location of Patient: OR Preparation: Sterile Prep, Sterile Dressing Arterial Line Location: Brachial Ultrasound Used: Yes Purpose - Visualization and Identification of Vasculature: Yes Needle Guage: 20g right brachial arterial line Image Stored and Saved: Yes Narrative: Central line placement per sterile protocol utilized.
--- NOTE | 2019-10-19 09:04 | P.PN ---
Progress Note - Text Progress Note Date: 10/19/19 after induction of anesthesia and patient positioning. Prepping for right upper extremity arterial line. Patient went pulseless. ACLS started. See code Sheet. ROSC obtained. Arterial line and TLC placed. Proceeding/.
[2019-10-19 09:16] LABS: Allen Test Performed? Yes; Potassium 3.7 mmol/L (3.5-5.1)
[2019-10-19 09:19] LABS: ABG HCO3 12 mmol/L (21-25); ABG Oxygen Saturation 98.3 % (94-97); ABG PCO2 43 mmHg (35-45); ABG PO2 272 mmHg (83-108)
[2019-10-19 09:25] LABS: ABG PH 7.06 (7.35-7.45)
--- NOTE | 2019-10-19 09:25 | P.OP ---
Date of Procedure: 10/19/19 Preoperative Diagnosis: Small bowel obstruction from femoral hernia, sepsis Postoperative Diagnosis: Same, small bowel necrosis, internal hernia Procedure(s) Performed: Exploratory laparotomy with segmental small bowel resection Anesthesia: TIP Surgeon: Malgorzata Joe Estimated Blood Loss (ml): 50 Pathology: other (Small bowel) Condition: critical Disposition: ICU Indications for Procedure: The patient presented with a femoral hernia did appear to have incarceration. Since his presenting symptom was actually syncope and lightheadedness he was admitted with planned surgery later today. Overnight however he began to be hypotensive. He was given a fluid bolus and transferred to the ICU. He was found to be markedly hypothermic. He began complaining of abdominal pain. His hypothermia was treated. Due to worsening medical condition with recurrent hypotension requiring pressors and complaints of abdominal pain, which had not been present on admission, he is urgently taken to the OR Operative Findings: The patient had a small segment of strangulated bowel. On entry to the abdomen there was a large amount of serous fluid. The bowel appeared very dusky and was concerning for significant ischemic bowel. He was found to have an an terminal hernia. Once this was reduced the bowel began to become pinker and peristalsis was seen. Due to his critical nature, of wound VAC was placed with plans for return to the OR to reevaluate how viable the small bowel is and to perform an anastomosis. Description of Procedure: The patient's taken the operative suite. Shortly after induction of anesthesia the patient began to be very hypotensive and had significant mottling of the extremities. Initially femoral pulse was felt but that was subsequently lost so ACLS was initiated. We were able to regain spontaneous pulse with a good blood pressure. A-line and central line were placed by anesthesia. He was subsequently prepped and draped in the usual sterile manner. The abdomen was entered through a lower midline incision. There was a Monument-Tanvir mesh encountered which had to be transected. There was some dense adhesions between the small bowel. There is a lot of inflammatory fluid which smelled like necrotic bowel. Some adhesions were sharply lysed. The small bowel was then able to be run. The area of necrosis was identified. As the rest of bowel was being freed up using noted to have a large internal hernia which was reduced. This increased perfusion to the small bowel. A section of the small bowel was then chosen for resection. Opening was made in the mesentery and a RONNIE stapler was placed and fired proximally and distally. The mesentery was then taken down with LigaSure. The abdomen was irrigated. The bowel appeared to be much more viable with improved perfusion. There is still some very dusky areas so decision was made not to do an anastomosis. A wound VAC was placed, the plastic and mesh portion were placed under the peritoneum. Foam was then placed in the subcutaneous tissue and the occlusive dressing was applied. There was slow leak noted when the VAC was started. Patient will be taken to the ICU on the ventilator in guarded condition. If he progresses well over night plan would be for a second- look operation tomorrow.
[2019-10-19] MEDS: EPINEPHrine 4 MG in DEXTROSE 5% IN WATER 250 ML IV SCH ×8 (09:50→22:54)
[2019-10-19 09:59] LABS: ABG Base Excess -18.5 mmol/L; ABG HCO3 12 mmol/L (21-25); ABG PCO2 48 mmHg (35-45); ABG PO2 301 mmHg (83-108); ABG TCO2 14 mmol/L (19-24); Allen Test Performed? Yes
[2019-10-19 10:01] LABS: ABG PH 7.02 (7.35-7.45)
[2019-10-19] MEDS ORDERED: SODIUM BICARB 8.4% 50 ML SYR (1 MEQ/ML) IV STA ×3 (10:35→13:02)
--- NOTE | 2019-10-19 10:38 | XR ---
EXAMINATION TYPE: XR chest 1V portable DATE OF EXAM: 10/19/2019 COMPARISON: 10/18/2019 HISTORY: Enteric tube placement TECHNIQUE: Single frontal view of the chest is obtained. FINDINGS: There is patchy right basilar airspace disease and trace pleural effusions blunting the co stophrenic angles. The cardiac silhouette size is mildly enlarged with multilead left-sided cardiac device. The osseous structures are intact. Fenestrated portion of the enteric tube is just above th e gastroesophageal junction. Recommendation is for advancement approximately [address] acement of the endotracheal tube that should be advanced 2 to 3 cm for optimal placement. IMPRESSION: 1. Slight cephalad placement of the enteric and endotracheal tubes. Enteric tube could be advanced ap proximately 4 cm and endotracheal tube 2 to 3 cm for optimal placement. 2. New right basilar airspace disease, likely atelectasis with trace pleural effusions.
[2019-10-19 11:09] LABS: ABG Base Excess -17.7 mmol/L; ABG HCO3 12 mmol/L (21-25); ABG Oxygen Saturation 97.6 % (94-97); ABG PCO2 42 mmHg (35-45); ABG PO2 143 mmHg (83-108); ABG TCO2 14 mmol/L (19-24); Allen Test Performed? Yes
[2019-10-19 11:12] LABS: Glucose,Whole Blood 109 mg/dL (75-99)
[2019-10-19 11:12] LABS: ABG PH 7.08 (7.35-7.45)
[2019-10-19 11:13] LABS: Partial Thromboplastin Time 44.7 sec (22.0-30.0)
[2019-10-19] MEDS ORDERED: HYDROCORTISONE SUCCINATE 100 MG/2 ML VIAL IV STA (11:14)
[2019-10-19 11:24] LABS: HGB 17.9 gm/dL (13.0-17.5); MCH 31.9 pg (25.0-35.0); MCHC 31.3 g/dL (31.0-37.0); MCV 101.8 fL (80.0-100.0); Macrocytosis Slight; Mean Platelet Volume 8.9; Platelet Count 176 k/uL (150-450); RBC 5.63 m/uL (4.30-5.90); RDW 14.2 % (11.5-15.5)
[2019-10-19 11:25] LABS: Potassium 4.1 mmol/L (3.5-5.1)
[2019-10-19 11:31] LABS: HCT 57.3 % (39.0-53.0)
[2019-10-19 11:32] LABS: Calcium 5.8 mg/dL (8.4-10.2)
[2019-10-19] MEDS: DEXTROSE 5% IN WATER 1,000 ML with SODIUM BICARB (1 MEQ/ML) 150 ML IV SCH (11:37)
--- NOTE | 2019-10-19 11:46 | CONS ---
CONSULTATION PULMONARY/CRITICAL CARE CONSULTATION: DATE OF SERVICE: 10/19/2019 REASON FOR CONSULTATION: ICU management. This is an 78-year-old gentleman who presented to the emergency room on October 18 with complaints of passing out. The patient apparently had multiple episodes of syncope. It occurred over the last 1-1/2 day or 2 days prior to admission. The patient apparently was noted to have profound dehydration and possible underlying sepsis. He was also noted to have an incarcerated hernia. He does have a previous history of colon cancer with previous ostomy. The patient was quite hypotensive and hypothermic initially in the emergency room. I was called by the ER doctor. We admitted the patient to the ICU. In the ICU, the initial treatment was antibiotics, fluid resuscitation, and warming. The bowel that was incarcerated, meant that the patient had a medical emergency/surgical emergency. The patient is taken to the operating room by Dr. Joe and a small bowel resection was performed. The abdomen was left open. The plan is hopeful of a trip back to the operating room tomorrow for reanastomosis. Initially, Dr. Joe said that the bowel was quite ischemic appearing, but when she untangled the bowel, the bowel started to pink up and there was peristalsis. She is hoping that the bowel will recover. Again, the small-bowel resection was performed and the belly was left open. Currently, the patient which was initially on saline wide-open and 2 L nasal cannula before the operating room, comes back on the ventilator. Initial vent settings were the volume assist-control mode rate of 12, tidal volume 550 at 100% and PEEP of 5. Blood gases showed a PO2 of 301, pCO2 of 48, pH 7.02. The patient was given 2 amps of bicarb IV push and the vent was changed to a volume assist-control mode rate of 20, tidal volume 450, FiO2 of 50%, PEEP of 5. A repeat blood gas is pending. The patient is currently on lactated Ringer's wide open, epinephrine at between 10-12 mcg/minute, Levophed at 4 mcg/minute and as I mentioned, 2 amps of bicarb was given IV push. The patient has received about 5-6 L of fluid totally since being here in the hospital and unfortunately developed cardiac arrest in the operating room and was resuscitated for about 12 minutes. He was pulseless at that time. Hence, obviously this was a true emergency. Anyway, the patient is back here in the ICU. . HOME MEDICATIONS: Apparently include Avodart, Pepcid, iron sulfate, Lasix, Zocor, Flomax, Eliquis, vitamin D3, Uloric, Mag-Ox, Betapace, Tylenol with codeine, Tessalon Perles, fenofibrate, iron, multivitamins and Klor-Con. Other medications include prednisone, omeprazole, and [place]. ALLERGIES: Denied. MEDICAL HISTORY: Positive for colon cancer with previous colostomy, hyperlipidemia, hypertension, prostate disorder. I suspect BPH, skin cancer, gout, status post AICD placement, kidney stones, gallstones, 3 previous abdominal her surgeries with hernia repair, vein surgery, back pain, and macular degeneration. SURGICAL HISTORY: Includes bowel resection with colostomy, heart catheterization with stent, hernia repair, right wrist carpal tunnel release, removal of kidney stones, left-sided nephrostomy tube, and some other orthopedic procedures. Patient is also status post AICD placement. SOCIAL HISTORY: Positive for previous tobacco use. He drinks alcohol rarely. No illicit drug use. FAMILY HISTORY: Positive for a father with heart failure. Mother who was healthy. Sister who is healthy and a brother who is also healthy. REVIEW OF SYSTEMS: Cannot be obtained. The patient is currently intubated and mechanically ventilated. From the history obtained initially in the ER, his review of systems was positive for dehydration, syncope, and generalized weakness. Current vital signs are reviewed. Temperature 99.1, heart rate 75, respiratory rate 20, blood pressure 110/98, saturations are 93%. That is on 50% O2. Appears in no acute distress, currently still likely under the effects of anesthesia. HEENT: Examination is grossly unremarkable. There is an orally placed endotracheal tube and NG tube. NECK: Supple. CARDIOVASCULAR: Examination reveals a regular rhythm and rate. Heart rate about 90 beats per minute. LUNGS: Reveal some coarse rhonchi. ABDOMEN: Revealing an open abdominal incision. The small bowel was resected but not and reanastomosed. There was a previous colostomy in the left upper quadrant of the abdomen. EXTREMITIES: Warm. No edema. SKIN: Without rash. NEUROLOGIC: Examination could not be adequately assessed. Currently, microbiology is negative. LABS: Reviewed. White count 43.1, hemoglobin 23.2, hematocrit 68.4, and platelet count 197,000. Those numbers may not be correct. Blood gas as I mentioned, showed a pO2 of 301, pCO2 of 48, pH of 7.02. Repeat blood gases are pending. Sodium was 140, potassium 3.7, chloride is 111, CO2 of 11 and anion gap was 18. Lactic acid was 4 and then jumped to 9.2. Urine was negative. Lipase 78. A chest x-ray shows an AICD device. Endotracheal tube is about 4 cm above the tracheal nimco. There may be a small left-sided pleural effusion. Lung guzman are otherwise relatively clear. There may be some basilar atelectasis, right greater than left. Current medications are reviewed. He is currently on epinephrine and Levophed as mentioned prior. In addition, he is on subcu heparin, updrafts q.4, lactated Ringer's wide open, Narcan Zofran, Protonix, Zosyn. ASSESSMENT: 1. Postoperative day #0, status post exploratory laparotomy, and small bowel resection. 2. Incarcerated femoral hernia. 3. Routine postoperative ventilator management. 4. Profound metabolic acidosis with lactic acidemia. 5. Severe dehydration and syncope prior to admission. 6. Prior history of colon cancer with previous colostomy. 7. Status post AICD placement. 8. History of colon cancer with previous colostomy. 9. History of hyperlipidemia. 10.History of hypertension. 11.Benign prostatic hypertrophy. 12.Skin cancer by history. 13.History of arrhythmia. 14.History of kidney stones. 15.History of gallstones. 16.Multiple abdominal procedures with abdominal hernias. 17.History of macular degeneration. 18.Prior heart catheterization with stent placement. 19.Previous history of left-sided nephrostomy tube. PLAN: His overall prognosis remains very guarded. He was taken to the operating room emergently. The patient had exploratory laparotomy and small-bowel resection. The belly was left open. Possible trip back to the operating room tomorrow for anastomosis. The patient has a severe metabolic acidosis and lactic acidemia. We will see if we cannot get the patient on 1 pressor. Two amps of sodium bicarbonate were given IV push. He has received 5-6 L of fluid thus far. The patient did have an intraoperative cardiac arrest and required cardiopulmonary resuscitation. Overall prognosis remains very guarded. Updrafts were added. Medications are reviewed. Will continue to follow. MMODL / IJN: [id number] /
[2019-10-19] MEDS: PANTOPRAZOLE 40 MG/10 ML VIAL IV SCH (12:00)
[2019-10-19] MEDS: IPRATROPIUM-ALBUTEROL 3 ML NEB INHALATION SCH ×4 (12:09→23:45)
[2019-10-19 12:11] LABS: Band Neutrophils % 4 %; Eosinophils # (M) 0.45 k/uL (0-0.7); Metamyelocytes % 2 %; Myelocytes % 3 %; Neutrophils % (M) 85 %; Nucleated Red Blood Cells 1 /100 WBC (0-0); Total Cells Counted 200
[2019-10-19 12:12] LABS: Crenated RBC Present; Lymphocytes # (M) 1.78 k/uL (1.0-4.8); Metamyelocytes # (M) 0.89 k/uL (0); Monocytes # (M) 1.34 k/uL (0-1.0); Myelocytes # (M) 1.34 k/uL (0); Poikilocytosis (M) Present; WBC 44.6 k/uL (3.8-10.6)
[2019-10-19 12:55] LABS: ABG Base Excess -17.6 mmol/L; ABG HCO3 12 mmol/L (21-25); ABG Oxygen Saturation 94.9 % (94-97); ABG PCO2 37 mmHg (35-45); ABG PO2 101 mmHg (83-108); ABG TCO2 13 mmol/L (19-24); Allen Test Performed? Yes
[2019-10-19 12:57] LABS: ABG PH 7.12 (7.35-7.45)
[2019-10-19] MEDS ORDERED: NOREPINEPHRINE 32 MG in SODIUM CHLORIDE 0.9% 218 ML IV SCH (13:00)
[2019-10-19] MEDS ORDERED: SODIUM CHLORIDE 0.9% 150 ML with VASOPRESSIN 60 UNIT IV SCH ×2 (13:00)
[2019-10-19 13:07] LABS: Albumin 1.1 g/dL (3.5-5.0); Total Bilirubin 1.1 mg/dL (0.2-1.3); Total Protein 2.1 g/dL (6.3-8.2)
[2019-10-19] MEDS: SODIUM CHLORIDE 0.9% 50 ML with VASOPRESSIN 20 UNIT IVPB SCH ×2 (13:30)
[2019-10-19] MEDS: SODIUM CHLORIDE 0.9% 50 ML with HYDROCORTISONE SUCCINATE 500 MG IVPB SCH ×2 (13:31)
[2019-10-19] MEDS: NOREPINEPHRINE 8 MG in SODIUM CHLORIDE 0.9% 250 ML IV SCH ×2 (13:35→16:45)
--- NOTE | 2019-10-19 13:52 | CONS ---
CONSULTATION CHIEF COMPLAINT: Syncope. This is an 78-year-old gentleman with a history of cardiomyopathy, AICD, coronary artery disease, and dyslipidemia who is admitted to hospital with having had an episode of syncope at home. We have been consulted for the same. I went to see the patient this morning, but he was already in the operating room. His history is significant for peripheral arterial disease, colon cancer, status post colostomy. Patient is on steroids. He apparently has had peripheral vascular intervention. I do not have any of the details. When he first came in, he had an episode of syncope. At the time of my evaluation, he is intubated on vent and is very unstable. On his initial presentation, his white cell count was elevated. Hemoglobin was elevated. He was in renal failure. His device was functioning normally based on the EKG. He had an echocardiogram that showed an ejection fraction of 35%. PAST MEDICAL HISTORY: Significant for CA of colon, hypertension, dyslipidemia, cardiomyopathy, AICD, coronary artery disease. There is prior history of stenting, hernia repair and orthopedic surgery. MEDICATIONS, ALLERGIES, FAMILY HISTORY, SOCIAL HISTORY, REVIEW OF SYSTEMS is as per chart. PHYSICAL EXAMINATION: On exam, patient is intubated, on vent, appears profoundly hypotensive on pressors and is acidotic. His prognosis is very guarded. Heart rate is around 110 beats per minute. Blood pressure is 70/40. Chest exam reveals diminished air entry bilaterally. Heart exam reveals first and second heart sounds and a systolic murmur at the left lower sternal border. Abdomen appears distended. He is status post incomplete surgery. Examination of the extremities did reveal 1+ edema. Peripheral pulses were diminished. His INR was elevated at 2. The patient was on Eliquis prior to coming in. ASSESSMENT: 1. Acute abdomen, status post surgery. 2. Syncope, probably related to the acute abdomen. 3. Status post cardiac arrest. 4. Severe hypotension. 5. Metabolic acidosis. PLAN: Patient's prognosis is guarded. Continue supportive care. I will check a troponin on him. Patient went for laparotomy this morning. Patient apparently has ischemic bowel. However, surgery could not be done as patient had cardiac arrest on the table with pulseless electrical activity after being inducted. MMODL / IJN: [id number] /
[2019-10-19 14:57] LABS: Magnesium 1.8 mg/dL (1.6-2.3)
[2019-10-19 15:00] LABS: Phosphorus 10.3 mg/dL (2.5-4.5)
--- NOTE | 2019-10-19 15:13 | XR ---
EXAMINATION TYPE: XR chest 1V portable DATE OF EXAM: 10/19/2019 COMPARISON: 10/19/2019 HISTORY: Tube placement TECHNIQUE: Single frontal view of the chest is obtained. FINDINGS: Endotracheal and enteric tubes have been advanced. Endotracheal tube is appropriately plac ed terminating at the aortic arch. Gastric tube terminates off the distal [id number], also appropr iately placed. Left internal jugular central venous catheter terminates in the distal superior vena c joseluis. Similar bibasilar opacities and trace pleural effusions. Stable cardiomediastinal silhouette wit h multilead left-sided cardiac device. IMPRESSION: Interval advancement of the endotracheal and enteric tubes, now appropriately placed. Ot herwise stable exam.
[2019-10-19] MEDS: HEPARIN SODIUM,PORCINE 5,000 UNIT/ML 1 ML VIAL SQ SCH (15:21)
[2019-10-19] MEDS: PROPOFOL 1,000 MG in EMPTY BAG 1 BAG IV SCH ×2 (15:23→22:32)
[2019-10-19 16:12] LABS: ABG HCO3 13 mmol/L (21-25); ABG Oxygen Saturation 90.3 % (94-97); ABG PCO2 34 mmHg (35-45); ABG PO2 72 mmHg (83-108); ABG TCO2 14 mmol/L (19-24); Allen Test Performed? Yes
[2019-10-19 16:59] LABS: Appearance,Urine Cloudy (Clear); Bilirubin,Urine Negative (Negative); Blood,Urine Moderate (Negative); Color,Urine Yellow; Glucose,Urine (UA) 1+ (Negative); Ketones,Urine Trace (Negative); Leukocyte Esterase,Urine Trace (Negative); Mucus,Urine Rare /hpf; Nitrite,Urine Negative (Negative); Protein,Urine 1+ (Negative); RBC,Urine 53 /hpf (0-5); Specific Gravity,Urine 1.017 (1.001-1.035); Urobilinogen,Urine <2.0 mg/dL (<2.0); WBC,Urine 14 /hpf (0-5)
[2019-10-19 17:52] LABS: Glucose,Whole Blood 237 mg/dL (75-99)
[2019-10-19 18:02] LABS: HCT 47.9 % (39.0-53.0); HGB 15.6 gm/dL (13.0-17.5); MCHC 32.7 g/dL (31.0-37.0); MCV 101.1 fL (80.0-100.0); Macrocytosis Slight; Mean Platelet Volume 9.5; Platelet Count 142 k/uL (150-450); RBC 4.73 m/uL (4.30-5.90); RDW 14.6 % (11.5-15.5); WBC 34.9 k/uL (3.8-10.6)
[2019-10-19] MEDS: INSULIN ASPART (NovoLOG) 100 UNIT/ML VIAL SQ SCH (18:19)
[2019-10-19] MEDS: NOREPINEPHRINE 32 MG in SODIUM CHLORIDE 0.9% 218 ML IV SCH (18:33)
[2019-10-19 19:01] LABS: ABG Base Excess -15.9 mmol/L; ABG HCO3 12 mmol/L (21-25); ABG Oxygen Saturation 93.5 % (94-97); ABG PCO2 32 mmHg (35-45); ABG PO2 83 mmHg (83-108); ABG TCO2 13 mmol/L (19-24); Allen Test Performed? Yes
--- NOTE | 2019-10-19 21:29 | CONS ---
CONSULTATION REASON FOR CONSULT: Renal failure. HISTORY OF PRESENT ILLNESS: The patient is an 78-year-old male who was admitted to the hospital with complaints of not having had any output from his colostomy for about 2 days prior to admission. The initial CT scan done yesterday showed a right inguinal hernia with bowel. The patient was taken to OR and he actually coded in the OR, surgery was partly performed. The patient had was found to have bowel necrosis. He had explorative laparotomy and segmental small bowel resection. His wound was not closed. There is a wound VAC currently and patient was transferred to the ICU. He is currently on the vent. He remains severely hypotensive and severely acidotic. The patient is maintained on large doses of pressors. IV fluids are running wide open. He is on the vent. FiO2 at about 60%. PAST MEDICAL HISTORY: Significant for hyperlipidemia, hypertension, colon cancer, status post colostomy, skin cancer, gout, AICD placement, nephrolithiasis, previous history of gallstones, macular degeneration, chronic back pain. PAST SURGICAL HISTORY: Bowel resection for colon cancer with colostomy, cardiac catheterization, coronary stent placement, hernia repair, carpal tunnel release, surgery for kidney stones, previous history of left nephrostomy and AICD placement. SOCIAL HISTORY: Positive for patient being a remote smoker. No current drug abuse, alcohol abuse or smoking. FAMILY HISTORY: Noncontributory. MEDICATIONS: Medications prior to admission included Pepcid, iron, Lasix, Zocor, Flomax, Eliquis, vitamin D3, Uloric, magnesium, codeine, potassium, iron, multivitamins, prednisone, [place]. ALLERGIES: None. EXAMINATION: Patient is currently on the vent. He is sedated. Blood pressure was 99/50, heart rate 100 per minute he is afebrile. Examination of the heart S1, S2. Examination of the lungs, bilateral breath sounds are heard, abdomen has a wound VAC with open incision from the explorative laparotomy. Examination lower extremities shows no evidence of edema. [employer] exam cannot be performed. LABS SHOW: Hemoglobin 17.9, sodium of 139, potassium 4.1, chloride 110. CO2 is 13, BUN 57 serum creatinine 2.83. ASSESSMENT: 1. Acute kidney injury secondary to hypotension hypoperfusion and sepsis, currently oliguric. 2. Severe metabolic acidosis secondary to profound hypotension, lactic acidosis and sepsis and gastrointestinal fluid loss, maintained on bicarb drip. 3. Acute hypoxic respiratory failure. 4. [id number] myocardial infarction with elevation in creatinine, troponin being followed by Cardiology. 5. Bowel necrosis, small bowel obstruction and hernia and inguinal hernia, status post bowel segmental bowel resection done this morning. 6. Status post cardiac arrest. PLAN: Increase bicarb drip to 200 mL an hour. Monitor electrolytes. Repeat labs this evening. If the patient is hemodynamically stable, he may need dialysis in a.m. However, overall prognosis is guarded. MMODL / IJN: [id number] /
[2019-10-19] MEDS: CHLORHEXIDINE GLUCONATE 15 ML CUP MUCOUS MEM SCH (22:00)
[2019-10-20] MEDS: HEPARIN SODIUM,PORCINE 5,000 UNIT/ML 1 ML VIAL SQ SCH ×3 (00:01→16:29)
[2019-10-20 00:02] LABS: Glucose,Whole Blood 197 mg/dL (75-99)
[2019-10-20] MEDS: DEXTROSE 5% IN WATER 1,000 ML with SODIUM BICARB (1 MEQ/ML) 150 ML IV SCH ×3 (00:03→09:55)
[2019-10-20] MEDS: NOREPINEPHRINE 32 MG in SODIUM CHLORIDE 0.9% 218 ML IV SCH ×2 (00:03→11:28)
[2019-10-20] MEDS: INSULIN ASPART (NovoLOG) 100 UNIT/ML VIAL SQ SCH ×2 (00:04→05:58)
[2019-10-20] MEDS: EPINEPHrine 4 MG in DEXTROSE 5% IN WATER 250 ML IV SCH ×14 (00:37→11:43)
[2019-10-20 00:55] LABS: HCT 49.8 % (39.0-53.0); HGB 15.7 gm/dL (13.0-17.5); Hypochromasia Marked; MCH 33.4 pg (25.0-35.0); MCHC 31.5 g/dL (31.0-37.0); MCV 105.9 fL (80.0-100.0); Macrocytosis Moderate; Mean Platelet Volume 9.9; Platelet Count 100 k/uL (150-450); RDW 14.8 % (11.5-15.5)
[2019-10-20] MEDS: IPRATROPIUM-ALBUTEROL 3 ML NEB INHALATION SCH ×4 (03:36→16:24)
[2019-10-20] MEDS: SODIUM CHLORIDE 0.9% 50 ML with VASOPRESSIN 20 UNIT IVPB SCH ×2 (03:59)
[2019-10-20 05:24] LABS: ABG Base Excess -17.3 mmol/L; ABG HCO3 13 mmol/L (21-25); ABG Oxygen Saturation 89.8 % (94-97); ABG PCO2 44 mmHg (35-45); ABG PO2 73 mmHg (83-108); ABG TCO2 14 mmol/L (19-24); Allen Test Performed? Yes
[2019-10-20] MEDS: SODIUM CHLORIDE 0.9% 1,000 ML IV SCH ×3 (05:44→12:31)
[2019-10-20 05:53] LABS: Glucose,Whole Blood 344 mg/dL (75-99)
[2019-10-20 06:05] LABS: HCT 46.5 % (39.0-53.0); HGB 14.7 gm/dL (13.0-17.5); Hypochromasia Marked; MCH 33.3 pg (25.0-35.0); MCHC 31.6 g/dL (31.0-37.0); MCV 105.5 fL (80.0-100.0); Macrocytosis Moderate; Mean Platelet Volume 10.8; RBC 4.41 m/uL (4.30-5.90); RDW 14.8 % (11.5-15.5); WBC 29.5 k/uL (3.8-10.6)
[2019-10-20 06:13] LABS: INR 3.7 (<1.2); Prothrombin Time 36.9 sec (9.0-12.0)
[2019-10-20 06:18] LABS: Albumin 1.1 g/dL (3.5-5.0); Potassium 3.5 mmol/L (3.5-5.1); Total Bilirubin 1.6 mg/dL (0.2-1.3); Total Protein 2.1 g/dL (6.3-8.2)
[2019-10-20] MEDS ORDERED: SODIUM BICARB 8.4% 50 ML SYR (1 MEQ/ML) IV STA (06:20)
[2019-10-20 06:22] LABS: Calcium 5.2 mg/dL (8.4-10.2)
[2019-10-20 07:00] LABS: Platelet Count 78 k/uL (150-450)
--- NOTE | 2019-10-20 07:41 | XR ---
EXAMINATION TYPE: XR chest 1V portable DATE OF EXAM: 10/20/2019 COMPARISON: 10/19/2019 HISTORY: Tube placement TECHNIQUE: Single frontal view of the chest is obtained. FINDINGS: There is a large left-sided pneumothorax estimated greater than 50%. Right lung remains in flated. Small bilateral layering pleural effusions are again seen. Enteric tube appears retracted and has its fenestrated portion in the distal esophagus. This should be advanced approximately 9 cm for optimal placement. Otherwise stable lines and tubes. Cardiomegaly with left-sided cardiac device. IMPRESSION: 1. Interval development of a large left pleural effusion. Estimated at greater than 50%. Thoracostomy tube placement is recommended. Findings communicated with the nurse Hema by Dr. Perla at 7:37 AM on 10/20/2019. 2. Enteric tube is cephalad in position and should be advanced at least 9 cm for optimal placement. A [place] level critical message alert has been initiated for Momo Urias via the [employer] Critical Results System on 10/20/2019 7:39 AM. This message alert has been sent to Moom Urias via the preferences provided by the clinician for the receipt of Radiology Critical Findings. Message ID [id number].
--- NOTE | 2019-10-20 08:17 | PCN ---
PROCEDURE NOTE PROCEDURE: Left-sided chest tube. PREOPERATIVE DIAGNOSIS: Left pneumothorax. POSTOPERATIVE DIAGNOSIS: Left pneumothorax. A #28-[place] chest tube was inserted into the left pleural space. The area was prepped in the usual fashion. A small incision was made. The forceps were used to dissect down into the pleura. There was a whoosh of air once the pleural space was entered. This suggested a developing tension pneumothorax. #28-[place] chest tube was placed. There was return of fluid. The chest tube was connected to a Pleur-evac at -20 cm of water suction. The patient tolerated the procedure well. The chest tube was sutured in place and sterile dressing was applied. A stat chest x-ray was ordered. Note there was no major complication. The patient tolerated the procedure well. MMODL / IJN: [id number] /
[2019-10-20] MEDS ORDERED: CALCIUM GLUCONATE 1 GM in SODIUM CHLORIDE 0.9% 100 ML IVPB ONE ×2 (08:18→13:13)
[2019-10-20] MEDS: PANTOPRAZOLE 40 MG/10 ML VIAL IV SCH (08:30)
[2019-10-20] MEDS: CHLORHEXIDINE GLUCONATE 15 ML CUP MUCOUS MEM SCH (08:30)
[2019-10-20] MEDS: PROPOFOL 1,000 MG in EMPTY BAG 1 BAG IV SCH (08:30)
[2019-10-20] MEDS: PIPERACILLIN-TAZOBACTAM 3.375 GM in SODIUM CHLORIDE 0.9% 100 ML IVPB SCH (08:31)
--- NOTE | 2019-10-20 08:42 | XR ---
EXAMINATION TYPE: XR chest 1V portable DATE OF EXAM: 10/20/2019 COMPARISON: 10/20/2019, earlier the same date HISTORY: Follow-up for pneumothorax. TECHNIQUE: Single frontal view of the chest is obtained. FINDINGS: Improved left pneumothorax estimated at 30% with placement of a left thoracostomy tube. Pl eural separation of the left lung apex measures approximately 3.3 cm. Remainder the exam is unchanged from the prior of earlier on the same date. IMPRESSION: Improving left pneumothorax status post recent of a left thoracostomy tube. Otherwise st able exam.
--- NOTE | 2019-10-20 08:55 | P.PN ---
Subjective Progress Note Date: 10/19/19 This is an 78-year-old pleasant gentleman patient of Dr. Gordillo. He has underlying history of kidney stones, hernias, PAD, colon cancer, AICD, admitted through the emergency room secondary to 5episodes of syncope and 2 falling episodes for the past 2 days. He had 3 episodes today of syncope, patient has been ill with intractable vomiting, diminished appetite, for the past 2 days. Patient has no diarrhea, however he has no output in his ostomy bag, patient does not have any abdominal pain, patient denies any fever no chills, he sees Dr. castillo cardiology, with no medication changes, Dr. Borja within the past 30 days, without any medication changes. Patient has premonition that he would pass out on 2 occasions only, patient denies any concussion, and no melena hematochezia, patient denies any chest pain no palpitations during this event, patient denies any sick contacts, patient denies any dysuria, he had what is suspected to be an angioplasty in the right lower extremity done by another vascular surgeon in [facility], this was done last 5 days prior to admission. Patient has no claudication at this time, however he is Cold feet, no lesions Extremities, and good dorsalis pedis pulses however they're both diminished. Patient does not have any alcohol dependency, his last beer was 2 weeks ago, no dysuria no back pain no hematuria, known history of large kidney stones with lithotripsy in the past. Patient denies any seizure episode, and no motor deficits upon recovery. In the emergency room patient was very hemoconcentrated, with WBC count of, 25.3, hemoglobin 20.0, creatinine 1.95 from a previous of 1.45 in 2013, BUN of 50, sodium 133, potassium 4.4, glucose 192, INR 1.1, urinalysis was negative for pyuria, however he's got 13 hyaline casts, specific gravity of 1.0-1, with some proteinuria noted. No transaminitis was noted, no lipase available for review, patient was admitted secondary to dehydration, and recurrent syncope, with consults to cardiology, EEG of the brain to be done, carotid Dopplers, echocardiogram, need pacemaker interrogation if needed consult to neurology as well. 10/19: CAT scan of the abdomen and pelvis revealed mild abdominal ascites although liver contour appears smooth there are right lower quadrant varices. Underlying cirrhosis or venous obstruction is possible. Small bowel containing right inguinal hernia. Correlate for physical exam. Mild fat stranding around the right lower quadrant bowel loops and pelvic bowel loops likely relates to mesenteric congestion and ascites rather than inflammatory infectious etiology. Right renal calculi and cholelithiasis, trace pericardial effusion. Patient was seen in consultation by Dr. Joe. Eliquis was placed on hold. When patient was reassessed the following morning, patient had continued groin discomfort including abdominal pain. Patient went to the OR emergently and found to have small bowel necrosis, internal hernia with small bowel obstruction from [facility] hernia and sepsis. Exploratory laparotomy with segmental small bowel resection was done. Shortly after induction of anesthesia, patient became hypotensive and had significant mottling of the extremities. Pulses were lost and ACLS was initiated. Patient was found to be and PEA and underwent 12 minutes of CPR. Patient was not close at the time and wound VAC placed as there was concern for perfusion of the bowel and patient may require a second procedure tomorrow. Patient was then admitted into intensive care unit remained intubated and on mechanical ventilation with tidal volume 450, FiO2 40, PEEP 5. Patient has had significant drainage from his wound VAC. Urine output has been 0 for 8 hours followed by 5 mL for 1 hour and 15 mL at the time of this evaluation. Patient is status post a total of 8 L of IV fluids over the past 12 hours. Patient is seen and followed by Dr. Ulloa for pcb designer management. Patient is currently on a bicarb drip for severe metabolic acidosis with lactic acidosis and worsening renal function and anuria, consult added for nephrology. Patient is also seen and followed by cardiology. Echocardiogram reveals EF of 35-40%, mild aortic valve sclerosis, mild aortic regurgitation, trace to mild mitral regurgitation, mild tricuspid regurgitation, mild pulmonary regurgitation, no pericardial effusion. EEG was normal. Carotid ultrasound showed mild plaquing with no significant hemodynamically significant stenosis on either carotid artery system. Patient's nephew Mani is at the bedside and all questions have been answered. Review of Systems Unable to be obtained due to intubation Objective - Vital Signs Vital signs: Vital Signs Temp 35.4 F L 10/19/19 11:45 Pulse 62 10/19/19 11:45 Resp 19 10/19/19 11:45 BP 97/62 10/19/19 11:45 Pulse Ox 99 02/12/20 11:45 Intake & Output 10/18/19 10/19/19 10/19/19 18:59 06:59 18:59 Intake Total 1520 4325.986 Output Total 320 56 Balance 1200 4269.986 Weight 81.647 kg Intake: IV 1520 2180 Lactated Ringers 1,000 ml 1000 @ 999 mls/hr IV .Q1H1M [facility] Rx#:[id number] Sodium Chloride 0.9% 1, 520 1130 000 ml @ 130 mls/hr IV . Q7H42M [facility] Rx#:[id number] Intake, IV Titration 2145.986 Amount EPINEPHrine 4 mg In 88.282 Dextrose 5% in Water 250 ml @ 0.01 MCG/KG/MIN 3. 062 mls/hr IV .Q24H [facility] Rx#:[id number] Lactated Ringers 1,000 ml 1000 @ 999 mls/hr IV .Q1H1M [facility] Rx#:[id number] Norepinephrine 4 mg In 57.704 Sodium Chloride 0.9% 250 ml @ 0.05 MCG/KG/MIN 15. 554 mls/hr IV .D72D75M [facility] Rx#:[id number] Sodium Chloride 0.9% 1, 1000 000 ml @ 0 mls/hr IV .[facility] Rx#:[id number] Output: Urine 320 6 Estimated Blood Loss 50 Other: Voiding Method Indwelling Catheter ABP, PAP, CO, CI - Last Documented Arterial Blood Pressure 125/54 - Exam - Constitutional General appearance: obese, cooperative, no acute distress - EENT Eyes: EOMI, PERRLA, normal appearance ENT: NA/AT, normal oropharynx, oral gastric tube and oral ET Patient appears to be comfortable on ventilator. - Neck Neck: normal ROM - Respiratory Respiratory: bilateral: Coarse rhonchi - Cardiovascular Rhythm: regular Heart sounds: normal: S1, S2 Abnormal Heart Sounds: no systolic murmur, no diastolic murmur, no rub, no S3 Gallop, no S4 Gallop, no click, no other - Gastrointestinal General gastrointestinal: Patient has colostomy with no output. Open abdominal incision with wound VAC in place. - Integumentary Integumentary: decreased turgor, normal No edema - Neurologic Neurologic: Sedated on mechanical ventilation - Labs CBC & Chem 7: 10/20/19 05:50 10/20/19 05:50 Labs: Abnormal Lab Results - Last 24 Hours (Table) 10/18/19 10/18/19 10/18/19 Range/Units 12:05 12:05 13:00 WBC 25.3 H (3.8-10.6) k/uL RBC 6.09 H (4.30-5.90) m/uL Hgb 20.0 H* (13.0-17.5) gm/dL Hct 59.1 H* (39.0-53.0) % MCV (80.0-100.0) fL Neutrophils # 21.4 H (1.3-7.7) k/uL Neutrophils # (Manual) (1.3-7.7) k/uL Lymphocytes # 0.7 L (1.0-4.8) k/uL Monocytes # 2.5 H (0-1.0) k/uL Monocytes # (Manual) (0-1.0) k/uL Basophils # 0.3 H (0-0.2) k/uL Metamyelocytes # (Man) (0) k/uL Myelocytes # (Manual) (0) k/uL PT (9.0-12.0) sec INR (<1.2) APTT (22.0-30.0) sec ABG pH (7.35-7.45) ABG pCO2 (35-45) mmHg ABG pO2 (83-108) mmHg ABG HCO3 (21-25) mmol/L ABG Total CO2 (19-24) mmol/L ABG O2 Saturation (94-97) % Sodium 133 L (137-145) mmol/L Potassium (3.5-5.1) mmol/L Chloride 96 L (98-107) mmol/L Carbon Dioxide 21 L (22-30) mmol/L BUN 50 H (9-20) mg/dL Creatinine 1.95 H (0.66-1.25) mg/dL Glucose 192 H (74-99) mg/dL POC Glucose (mg/dL) (75-99) mg/dL Plasma Lactic Acid Carl (0.7-2.0) mmol/L Calcium (8.4-10.2) mg/dL Total Bilirubin 2.1 H (0.2-1.3) mg/dL Unconjugated Bilirubin (0.0-1.1) mg/dL Delta Bilirubin (0.0-0.2) mg/dL AST (17-59) U/L Alkaline Phosphatase (38-126) U/L Total Protein (6.3-8.2) g/dL Albumin (3.5-5.0) g/dL Procalcitonin (0.02-0.09) ng/mL Urine Protein 1+ H (Negative) Hyaline Casts 13 H (0-2) /lpf Urine Mucus Rare H (None) /hpf 10/18/19 10/19/19 10/19/19 Range/Units 15:08 01:01 01:20 WBC 42.1 H (3.8-10.6) k/uL RBC 6.50 H (4.30-5.90) m/uL Hgb 21.8 H* (13.0-17.5) gm/dL Hct 63.8 H* (39.0-53.0) % MCV (80.0-100.0) fL Neutrophils # (1.3-7.7) k/uL Neutrophils # (Manual) 36.60 H (1.3-7.7) k/uL Lymphocytes # (1.0-4.8) k/uL Monocytes # (0-1.0) k/uL Monocytes # (Manual) 1.26 H (0-1.0) k/uL Basophils # (0-0.2) k/uL Metamyelocytes # (Man) (0) k/uL Myelocytes # (Manual) (0) k/uL PT (9.0-12.0) sec INR (<1.2) APTT (22.0-30.0) sec ABG pH (7.35-7.45) ABG pCO2 (35-45) mmHg ABG pO2 (83-108) mmHg ABG HCO3 (21-25) mmol/L ABG Total CO2 (19-24) mmol/L ABG O2 Saturation (94-97) % Sodium (137-145) mmol/L Potassium (3.5-5.1) mmol/L Chloride (98-107) mmol/L Carbon Dioxide (22-30) mmol/L BUN (9-20) mg/dL Creatinine (0.66-1.25) mg/dL Glucose (74-99) mg/dL POC Glucose (mg/dL) 172 H (75-99) mg/dL Plasma Lactic Acid Carl (0.7-2.0) mmol/L Calcium (8.4-10.2) mg/dL Total Bilirubin 2.0 H (0.2-1.3) mg/dL Unconjugated Bilirubin 1.6 H (0.0-1.1) mg/dL Delta Bilirubin 0.4 H (0.0-0.2) mg/dL AST (17-59) U/L Alkaline Phosphatase (38-126) U/L Total Protein (6.3-8.2) g/dL Albumin (3.5-5.0) g/dL Procalcitonin (0.02-0.09) ng/mL Urine Protein (Negative) Hyaline Casts (0-2) /lpf Urine Mucus (None) /hpf 10/19/19 10/19/19 10/19/19 Range/Units 01:20 05:26 05:45 WBC (3.8-10.6) k/uL RBC (4.30-5.90) m/uL Hgb (13.0-17.5) gm/dL Hct (39.0-53.0) % MCV (80.0-100.0) fL Neutrophils # (1.3-7.7) k/uL Neutrophils # (Manual) (1.3-7.7) k/uL Lymphocytes # (1.0-4.8) k/uL Monocytes # (0-1.0) k/uL Monocytes # (Manual) (0-1.0) k/uL Basophils # (0-0.2) k/uL Metamyelocytes # (Man) (0) k/uL Myelocytes # (Manual) (0) k/uL PT (9.0-12.0) sec INR (<1.2) APTT (22.0-30.0) sec ABG pH (7.35-7.45) ABG pCO2 (35-45) mmHg ABG pO2 (83-108) mmHg ABG HCO3 (21-25) mmol/L ABG Total CO2 (19-24) mmol/L ABG O2 Saturation (94-97) % Sodium 131 L 132 L (137-145) mmol/L Potassium 5.3 H (3.5-5.1) mmol/L Chloride (98-107) mmol/L Carbon Dioxide 13 L 13 L (22-30) mmol/L BUN 58 H 59 H (9-20) mg/dL Creatinine 2.28 H 2.59 H (0.66-1.25) mg/dL Glucose 164 H 137 H (74-99) mg/dL POC Glucose (mg/dL) (75-99) mg/dL Plasma Lactic Acid Carl 4.0 H* (0.7-2.0) mmol/L Calcium 8.1 L 8.1 L (8.4-10.2) mg/dL Total Bilirubin 2.5 H (0.2-1.3) mg/dL Unconjugated Bilirubin (0.0-1.1) mg/dL Delta Bilirubin (0.0-0.2) mg/dL AST 63 H (17-59) U/L Alkaline Phosphatase 30 L (38-126) U/L Total Protein 4.9 L (6.3-8.2) g/dL Albumin 2.4 L (3.5-5.0) g/dL Procalcitonin (0.02-0.09) ng/mL Urine Protein (Negative) Hyaline Casts (0-2) /lpf Urine Mucus (None) /hpf 10/19/19 10/19/19 10/19/19 Range/Units 06:35 06:35 08:41 WBC 43.1 H (3.8-10.6) k/uL RBC 6.92 H (4.30-5.90) m/uL Hgb 23.2 H* (13.0-17.5) gm/dL Hct 68.4 H* (39.0-53.0) % MCV (80.0-100.0) fL Neutrophils # (1.3-7.7) k/uL Neutrophils # (Manual) 37.40 H (1.3-7.7) k/uL Lymphocytes # (1.0-4.8) k/uL Monocytes # (0-1.0) k/uL Monocytes # (Manual) 2.59 H (0-1.0) k/uL Basophils # (0-0.2) k/uL Metamyelocytes # (Man) 0.86 H (0) k/uL Myelocytes # (Manual) 0.86 H (0) k/uL PT (9.0-12.0) sec INR (<1.2) APTT (22.0-30.0) sec ABG pH (7.35-7.45) ABG pCO2 (35-45) mmHg ABG pO2 (83-108) mmHg ABG HCO3 (21-25) mmol/L ABG Total CO2 (19-24) mmol/L ABG O2 Saturation (94-97) % Sodium (137-145) mmol/L Potassium (3.5-5.1) mmol/L Chloride 111 H (98-107) mmol/L Carbon Dioxide 11 L (22-30) mmol/L BUN (9-20) mg/dL Creatinine (0.66-1.25) mg/dL Glucose (74-99) mg/dL POC Glucose (mg/dL) (75-99) mg/dL Plasma Lactic Acid Carl (0.7-2.0) mmol/L Calcium (8.4-10.2) mg/dL Total Bilirubin (0.2-1.3) mg/dL Unconjugated Bilirubin (0.0-1.1) mg/dL Delta Bilirubin (0.0-0.2) mg/dL AST (17-59) U/L Alkaline Phosphatase (38-126) U/L Total Protein (6.3-8.2) g/dL Albumin (3.5-5.0) g/dL Procalcitonin 5.61 H (0.02-0.09) ng/mL Urine Protein (Negative) Hyaline Casts (0-2) /lpf Urine Mucus (None) /hpf 10/19/19 10/19/19 10/19/19 Range/Units 08:41 09:51 09:53 WBC (3.8-10.6) k/uL RBC (4.30-5.90) m/uL Hgb (13.0-17.5) gm/dL Hct (39.0-53.0) % MCV (80.0-100.0) fL Neutrophils # (1.3-7.7) k/uL Neutrophils # (Manual) (1.3-7.7) k/uL Lymphocytes # (1.0-4.8) k/uL Monocytes # (0-1.0) k/uL Monocytes # (Manual) (0-1.0) k/uL Basophils # (0-0.2) k/uL Metamyelocytes # (Man) (0) k/uL Myelocytes # (Manual) (0) k/uL PT (9.0-12.0) sec INR (<1.2) APTT (22.0-30.0) sec ABG pH 7.06 L* 7.02 L* (7.35-7.45) ABG pCO2 48 H (35-45) mmHg ABG pO2 272 H 301 H (83-108) mmHg ABG HCO3 12 L 12 L (21-25) mmol/L ABG Total CO2 14 L (19-24) mmol/L ABG O2 Saturation 98.3 H 99.0 H (94-97) % Sodium (137-145) mmol/L Potassium (3.5-5.1) mmol/L Chloride (98-107) mmol/L Carbon Dioxide (22-30) mmol/L BUN (9-20) mg/dL Creatinine (0.66-1.25) mg/dL Glucose (74-99) mg/dL POC Glucose (mg/dL) (75-99) mg/dL Plasma Lactic Acid Carl 9.2 H* (0.7-2.0) mmol/L Calcium (8.4-10.2) mg/dL Total Bilirubin (0.2-1.3) mg/dL Unconjugated Bilirubin (0.0-1.1) mg/dL Delta Bilirubin (0.0-0.2) mg/dL AST (17-59) U/L Alkaline Phosphatase (38-126) U/L Total Protein (6.3-8.2) g/dL Albumin (3.5-5.0) g/dL Procalcitonin (0.02-0.09) ng/mL Urine Protein (Negative) Hyaline Casts (0-2) /lpf Urine Mucus (None) /hpf 10/19/19 10/19/19 10/19/19 Range/Units 10:30 11:04 11:05 WBC (3.8-10.6) k/uL RBC (4.30-5.90) m/uL Hgb (13.0-17.5) gm/dL Hct (39.0-53.0) % MCV (80.0-100.0) fL Neutrophils # (1.3-7.7) k/uL Neutrophils # (Manual) (1.3-7.7) k/uL Lymphocytes # (1.0-4.8) k/uL Monocytes # (0-1.0) k/uL Monocytes # (Manual) (0-1.0) k/uL Basophils # (0-0.2) k/uL Metamyelocytes # (Man) (0) k/uL Myelocytes # (Manual) (0) k/uL PT 20.0 H (9.0-12.0) sec INR 2.0 H (<1.2) APTT 44.7 H (22.0-30.0) sec ABG pH 7.08 L* (7.35-7.45) ABG pCO2 (35-45) mmHg ABG pO2 143 H (83-108) mmHg ABG HCO3 12 L (21-25) mmol/L ABG Total CO2 14 L (19-24) mmol/L ABG O2 Saturation 97.6 H (94-97) % Sodium (137-145) mmol/L Potassium (3.5-5.1) mmol/L Chloride (98-107) mmol/L Carbon Dioxide (22-30) mmol/L BUN (9-20) mg/dL Creatinine (0.66-1.25) mg/dL Glucose (74-99) mg/dL POC Glucose (mg/dL) 109 H (75-99) mg/dL Plasma Lactic Acid Carl (0.7-2.0) mmol/L Calcium (8.4-10.2) mg/dL Total Bilirubin (0.2-1.3) mg/dL Unconjugated Bilirubin (0.0-1.1) mg/dL Delta Bilirubin (0.0-0.2) mg/dL AST (17-59) U/L Alkaline Phosphatase (38-126) U/L Total Protein (6.3-8.2) g/dL Albumin (3.5-5.0) g/dL Procalcitonin (0.02-0.09) ng/mL Urine Protein (Negative) Hyaline Casts (0-2) /lpf Urine Mucus (None) /hpf 10/19/19 10/19/19 Range/Units 11:05 11:05 WBC 45.0 H (3.8-10.6) k/uL RBC (4.30-5.90) m/uL Hgb 17.9 H D (13.0-17.5) gm/dL Hct 57.3 H* (39.0-53.0) % MCV 101.8 H (80.0-100.0) fL Neutrophils # (1.3-7.7) k/uL Neutrophils # (Manual) (1.3-7.7) k/uL Lymphocytes # (1.0-4.8) k/uL Monocytes # (0-1.0) k/uL Monocytes # (Manual) (0-1.0) k/uL Basophils # (0-0.2) k/uL Metamyelocytes # (Man) (0) k/uL Myelocytes # (Manual) (0) k/uL PT (9.0-12.0) sec INR (<1.2) APTT (22.0-30.0) sec ABG pH (7.35-7.45) ABG pCO2 (35-45) mmHg ABG pO2 (83-108) mmHg ABG HCO3 (21-25) mmol/L ABG Total CO2 (19-24) mmol/L ABG O2 Saturation (94-97) % Sodium (137-145) mmol/L Potassium (3.5-5.1) mmol/L Chloride 110 H (98-107) mmol/L Carbon Dioxide 13 L (22-30) mmol/L BUN 57 H (9-20) mg/dL Creatinine 2.83 H (0.66-1.25) mg/dL Glucose 122 H (74-99) mg/dL POC Glucose (mg/dL) (75-99) mg/dL Plasma Lactic Acid Carl (0.7-2.0) mmol/L Calcium 5.8 L* (8.4-10.2) mg/dL Total Bilirubin (0.2-1.3) mg/dL Unconjugated Bilirubin (0.0-1.1) mg/dL Delta Bilirubin (0.0-0.2) mg/dL AST (17-59) U/L Alkaline Phosphatase (38-126) U/L Total Protein (6.3-8.2) g/dL Albumin (3.5-5.0) g/dL Procalcitonin (0.02-0.09) ng/mL Urine Protein (Negative) Hyaline Casts (0-2) /lpf Urine Mucus (None) /hpf Assessment and Plan Plan: 1. Recurrent episodes of multiple syncope most likely secondary to an acute abdomen. Consults with pulmonary medicine and cardiology appreciated. Echocardiogram, carotid ultrasound and EEG as above. 2. Incarcerated femoral hernia and small bowel obstruction status post exploratory laparotomy and small bowel resection, postop day 0. Consult with Dr. Joe appreciated. Continue postop care. Consult with Dr. Urias has been added and following. 3. Acute hypoxic respiratory failure intubated and on mechanical ventilation. Dr. Urias is on for pcb designer management. 4. Severe metabolic acidosis and lactic acidosis. Patient is status post sodium bicarb drip. 5. Anuria and acute kidney injury. Consult with nephrology added. 6. Acute blood loss on surgical site. CBCs every 6 hours. Patient be transfused if hemoglobin less than 7.5. 7. Leukocytosis and sepsis secondary to small bowel obstruction, abdominal sepsis, severe sepsis with septic shock and multiorgan failure. 8. Shock liver with elevated liver function tests and INR. Continue to monitor. 9. Cardiopulmonary arrest requiring CPR for 12 minutes with PEA. Troponin 1.36 0 with possible non-ST elevated myocardial infarction. Consult with cardiology appreciated. 10. Hemoconcentration with elevated hematocrit, polycythemia possibly possibly secondary to volume contraction. 11. Pacemaker placement with AICD most likely secondary to sick sinus syndrome, stable. 12. Patient may have a history of atrial fibrillation, patient denies. Patient has been on eliquis unclear reason. 13. Chronic kidney disease stage III. 14. Perihepatic ascites secondary to acute abdomen. 15. Known history of colon cancer diagnosed 2016, with 11 surgeries related to complications including obstruction, last major surgery was in 2016 16. PAD, with recent angioplasty done on the right leg 17. History of nephrolithiasis, stable. Patient has seen Dr. Jordan with prior lithotripsy CODE STATUS: full code--to be discussed Prognosis poor Impression and plan of care have been directed as dictated by the signing physician. Bina Donis nurse practitioner acting as scribe for signing physician.
--- NOTE | 2019-10-20 09:07 | P.PN ---
Subjective Progress Note Date: 10/20/19 This is an 78-year-old pleasant gentleman patient of Dr. Gordillo. He has underlying history of kidney stones, hernias, PAD, colon cancer, AICD, admitted through the emergency room secondary to 5episodes of syncope and 2 falling episodes for the past 2 days. He had 3 episodes today of syncope, patient has been ill with intractable vomiting, diminished appetite, for the past 2 days. Patient has no diarrhea, however he has no output in his ostomy bag, patient does not have any abdominal pain, patient denies any fever no chills, he sees Dr. castillo cardiology, with no medication changes, Dr. Borja within the past 30 days, without any medication changes. Patient has premonition that he would pass out on 2 occasions only, patient denies any concussion, and no melena hematochezia, patient denies any chest pain no palpitations during this event, patient denies any sick contacts, patient denies any dysuria, he had what is suspected to be an angioplasty in the right lower extremity done by another vascular surgeon in [facility], this was done last 5 days prior to admission. Patient has no claudication at this time, however he is Cold feet, no lesions Extremities, and good dorsalis pedis pulses however they're both diminished. Patient does not have any alcohol dependency, his last beer was 2 weeks ago, no dysuria no back pain no hematuria, known history of large kidney stones with lithotripsy in the past. Patient denies any seizure episode, and no motor deficits upon recovery. In the emergency room patient was very hemoconcentrated, with WBC count of, 25.3, hemoglobin 20.0, creatinine 1.95 from a previous of 1.45 in 2013, BUN of 50, sodium 133, potassium 4.4, glucose 192, INR 1.1, urinalysis was negative for pyuria, however he's got 13 hyaline casts, specific gravity of 1.0-1, with some proteinuria noted. No transaminitis was noted, no lipase available for review, patient was admitted secondary to dehydration, and recurrent syncope, with consults to cardiology, EEG of the brain to be done, carotid Dopplers, echocardiogram, need pacemaker interrogation if needed consult to neurology as well. 10/19: CAT scan of the abdomen and pelvis revealed mild abdominal ascites although liver contour appears smooth there are right lower quadrant varices. Underlying cirrhosis or venous obstruction is possible. Small bowel containing right inguinal hernia. Correlate for physical exam. Mild fat stranding around the right lower quadrant bowel loops and pelvic bowel loops likely relates to mesenteric congestion and ascites rather than inflammatory infectious etiology. Right renal calculi and cholelithiasis, trace pericardial effusion. Patient was seen in consultation by Dr. Joe. Eliquis was placed on hold. When patient was reassessed the following morning, patient had continued groin discomfort including abdominal pain. Patient went to the OR emergently and found to have small bowel necrosis, internal hernia with small bowel obstruction from [facility] hernia and sepsis. Exploratory laparotomy with segmental small bowel resection was done. Shortly after induction of anesthesia, patient became hypotensive and had significant mottling of the extremities. Pulses were lost and ACLS was initiated. Patient was found to be and PEA and underwent 12 minutes of CPR. Patient was not close at the time and wound VAC placed as there was concern for perfusion of the bowel and patient may require a second procedure tomorrow. Patient was then admitted into intensive care unit remained intubated and on mechanical ventilation with tidal volume 450, FiO2 40, PEEP 5. He has on vasopressor support with epinephrine and norepinephrine. Patient has had significant drainage from his wound VAC. Urine output has been 0 for 8 hours followed by 5 mL for 1 hour and 15 mL at the time of this evaluation. Patient is status post a total of 8 L of IV fluids over the past 12 hours. Patient is seen and followed by Dr. Urias for [employer] software [employer] management. Patient is currently on a bicarb drip for severe metabolic acidosis with lactic acidosis and worsen ing renal function and anuria, consult added for nephrology. Patient is also seen and followed by cardiology. Echocardiogram reveals EF of 35-40%, mild aortic valve sclerosis, mild aortic regurgitation, trace to mild mitral regurgitation, mild tricuspid regurgitation, mild pulmonary regurgitation, no pericardial effusion. EEG was normal. Carotid ultrasound showed mild plaquing with no significant hemodynamically significant stenosis on either carotid artery system. Patient's nephew Mani is at the bedside and all questions have been answered. 10/20: Patient's temperature through the night has been on the lower side and down to 94.8, blood pressure low. Patient remains intubated and on mechanical ventilation. Repeat chest x-ray reveals interval development of large left pleural effusion greater than 50%. Enteric tube is cephalad and position should be advanced. Patient seen and followed by Dr. Du. Possible need for hemodialysis noted. Repeat blood work reveals WBC 29.5 which is improving from yesterday's peak of 44, platelet counts are down to 78, hemoglobin 14.7, INR 3.7, BUN 49 creatinine 3.71, CO2 13, sodium 130, potassium 3.5, chloride 94. Lactic acid 21, total bilirubin 1.6, AST 9018, ALT 3708, alkaline phosphatase 25, lipase 383. Patient is status post transfusion of 4 units of fresh frozen plasma done yesterday. CODE STATUS was changed during the night to no code with vasopressors and continue current treatment. Review of Systems Unable to be obtained due to intubation Objective - Vital Signs Vital signs: Vital Signs Temp 99.5 F 10/20/19 04:00 Pulse 120 H 10/20/19 08:24 Resp 20 10/20/19 07:00 BP 90/54 10/20/19 07:00 Pulse Ox 90 L 10/20/19 07:00 Intake & Output 10/19/19 10/20/19 10/20/19 18:59 06:59 18:59 Intake Total 8407.765 6266.558 497.653 Output Total 2504 666 500 Balance 5903.765 5600.558 -2.347 Weight 99 kg Intake: IV 2780 4400 400 Dextrose 5% in Water 1, 2200 200 000 ml @ 200 mls/hr IV . Q5H45M DENAE with Sodium Bicarb (1 Meq/ml) 150 ml Rx#:[id number] LR 2200 200 Sodium Chloride 0.9% 1, 1730 000 ml @ 130 mls/hr IV . Q7H42M [facility]NAE Rx#:[id number] Intake, IV Titration 4408.765 1866.558 97.653 Amount Dextrose 5% in Water 1, 1000 200 000 ml @ 200 mls/hr IV . Q5H45M DENAE with Sodium Bicarb (1 Meq/ml) 150 ml Rx#:[id number] EPINEPHrine 4 mg In 868.514 1609.460 Dextrose 5% in Water 250 ml @ 0.01 MCG/KG/MIN 3. 062 mls/hr IV .Q24H [facility] Rx#:[id number] Lactated Ringers 1,000 ml 1000 @ 999 mls/hr IV .Q1H1M ONE Rx#:[id number] Norepinephrine 32 mg In 0.025 209.22 Sodium Chloride 0.9% 218 ml @ 0.02 MCG/KG/MIN 0. 765 mls/hr IV .Q24H [facility] Rx#:[id number] Norepinephrine 4 mg In 254.000 Sodium Chloride 0.9% 250 ml @ 0.05 MCG/KG/MIN 15. 554 mls/hr IV .P09S53Y [facility] Rx#:[id number] Norepinephrine 8 mg In 353.128 Sodium Chloride 0.9% 250 ml @ 0.05 MCG/KG/MIN 7. 899 mls/hr IV .Q24H [facility] Rx#:[id number] Piperacillin-Tazobactam 3 100 .375 gm In Sodium Chloride 0.9% 100 ml @ 25 mls/hr IVPB Q8HR [facility]NAE Rx# :[id number] Propofol 1,000 mg In 6.369 57.318 97.653 Empty Bag 1 bag @ Titrate IV .Q0M [facility] Rx#: [id number] Sodium Chloride 0.9% 1, 1000 000 ml @ 0 mls/hr IV .STK -MED ONE Rx#:[id number] Sodium Chloride 0.9% 1, 400 000 ml @ 100 mls/hr IV . Q10H [facility] Rx#:[id number] Sodium Chloride 0.9% 50 24.48 6.12 ml @ 0.04 UNITS/MIN 6.12 mls/hr IVPB .Q8H20M DENAE with Vasopressin 20 unit Rx#:[id number] Sodium Chloride 0.9% 50 5.76 1.44 ml @ 12 MG/HR 1.44 mls/hr IVPB .Q24H [facility] with Hydrocortisone Succinate 500 mg Rx#:[id number] Blood Product 1219 Ffp 24 Cpd Unit 315 [id number] Ffp 24 Cpd Unit 294 [id number] Ffp 24 Cpd Unit 276 [id number] Ffp 24 Cpd Unit 334 [id number] Output: Gastric Drainage 200 Drainage 2225 650 500 Anterior Medial Abdomen 2225 650 500 Urine 29 16 0 Estimated Blood Loss 50 Other: Voiding Method Indwelling Catheter Indwelling Catheter ABP, PAP, CO, CI - Last Documented Arterial Blood Pressure 77/48 - Exam - Constitutional General appearance: obese, cooperative, no acute distress - EENT Eyes: EOMI, PERRLA, normal appearance ENT: NA/AT, normal oropharynx, oral gastric tube and oral ET Patient appears to be comfortable on ventilator. - Neck Neck: normal ROM - Respiratory Respiratory: bilateral: Coarse rhonchi - Cardiovascular Rhythm: regular Heart sounds: normal: S1, S2 Abnormal Heart Sounds: no systolic murmur, no diastolic murmur, no rub, no S3 Gallop, no S4 Gallop, no click, no other - Gastrointestinal General gastrointestinal: Patient has colostomy with no output. Open abdominal incision with wound VAC in place. - Integumentary Integumentary: decreased turgor, normal No edema - Neurologic Neurologic: Sedated on mechanical ventilation - Labs CBC & Chem 7: 10/20/19 05:50 10/20/19 05:50 Labs: Abnormal Lab Results - Last 24 Hours (Table) 10/19/19 10/19/19 10/19/19 Range/Units 06:35 08:41 08:41 WBC (3.8-10.6) k/uL Hgb (13.0-17.5) gm/dL Hct (39.0-53.0) % MCV (80.0-100.0) fL Plt Count (150-450) k/uL Neutrophils # (Manual) (1.3-7.7) k/uL Monocytes # (Manual) (0-1.0) k/uL Metamyelocytes # (Man) (0) k/uL Myelocytes # (Manual) (0) k/uL Nucleated RBCs (0-0) /100 WBC PT (9.0-12.0) sec INR (<1.2) APTT (22.0-30.0) sec ABG pH 7.06 L* (7.35-7.45) ABG pCO2 (35-45) mmHg ABG pO2 272 H (83-108) mmHg ABG HCO3 12 L (21-25) mmol/L ABG Total CO2 (19-24) mmol/L ABG O2 Saturation 98.3 H (94-97) % Sodium (137-145) mmol/L Chloride 111 H (98-107) mmol/L Carbon Dioxide 11 L (22-30) mmol/L BUN (9-20) mg/dL Creatinine (0.66-1.25) mg/dL Glucose (74-99) mg/dL POC Glucose (mg/dL) (75-99) mg/dL Plasma Lactic Acid Carl (0.7-2.0) mmol/L Calcium (8.4-10.2) mg/dL Ionized Calcium Michael (4.5-5.3) mg/dL Phosphorus (2.5-4.5) mg/dL Total Bilirubin (0.2-1.3) mg/dL AST (17-59) U/L ALT (4-49) U/L Alkaline Phosphatase (38-126) U/L Troponin I (0.000-0.034) ng/mL Total Protein (6.3-8.2) g/dL Albumin (3.5-5.0) g/dL Lipase (23-300) U/L Procalcitonin 5.61 H (0.02-0.09) ng/mL Urine Protein (Negative) Urine Glucose (UA) (Negative) Urine Ketones (Negative) Urine Blood (Negative) Ur Leukocyte Esterase (Negative) Urine RBC (0-5) /hpf Urine WBC (0-5) /hpf Urine Mucus (None) /hpf 10/19/19 10/19/19 10/19/19 Range/Units 09:51 09:53 10:30 WBC (3.8-10.6) k/uL Hgb (13.0-17.5) gm/dL Hct (39.0-53.0) % MCV (80.0-100.0) fL Plt Count (150-450) k/uL Neutrophils # (Manual) (1.3-7.7) k/uL Monocytes # (Manual) (0-1.0) k/uL Metamyelocytes # (Man) (0) k/uL Myelocytes # (Manual) (0) k/uL Nucleated RBCs (0-0) /100 WBC PT 20.0 H (9.0-12.0) sec INR 2.0 H (<1.2) APTT 44.7 H (22.0-30.0) sec ABG pH 7.02 L* (7.35-7.45) ABG pCO2 48 H (35-45) mmHg ABG pO2 301 H (83-108) mmHg ABG HCO3 12 L (21-25) mmol/L ABG Total CO2 14 L (19-24) mmol/L ABG O2 Saturation 99.0 H (94-97) % Sodium (137-145) mmol/L Chloride (98-107) mmol/L Carbon Dioxide (22-30) mmol/L BUN (9-20) mg/dL Creatinine (0.66-1.25) mg/dL Glucose (74-99) mg/dL POC Glucose (mg/dL) (75-99) mg/dL Plasma Lactic Acid Carl 9.2 H* (0.7-2.0) mmol/L Calcium (8.4-10.2) mg/dL Ionized Calcium Michael (4.5-5.3) mg/dL Phosphorus (2.5-4.5) mg/dL Total Bilirubin (0.2-1.3) mg/dL AST (17-59) U/L ALT (4-49) U/L Alkaline Phosphatase (38-126) U/L Troponin I (0.000-0.034) ng/mL Total Protein (6.3-8.2) g/dL Albumin (3.5-5.0) g/dL Lipase (23-300) U/L Procalcitonin (0.02-0.09) ng/mL Urine Protein (Negative) Urine Glucose (UA) (Negative) Urine Ketones (Negative) Urine Blood (Negative) Ur Leukocyte Esterase (Negative) Urine RBC (0-5) /hpf Urine WBC (0-5) /hpf Urine Mucus (None) /hpf 10/19/19 10/19/19 10/19/19 Range/Units 11:04 11:05 11:05 WBC (3.8-10.6) k/uL Hgb (13.0-17.5) gm/dL Hct (39.0-53.0) % MCV (80.0-100.0) fL Plt Count (150-450) k/uL Neutrophils # (Manual) (1.3-7.7) k/uL Monocytes # (Manual) (0-1.0) k/uL Metamyelocytes # (Man) (0) k/uL Myelocytes # (Manual) (0) k/uL Nucleated RBCs (0-0) /100 WBC PT (9.0-12.0) sec INR (<1.2) APTT (22.0-30.0) sec ABG pH 7.08 L* (7.35-7.45) ABG pCO2 (35-45) mmHg ABG pO2 143 H (83-108) mmHg ABG HCO3 12 L (21-25) mmol/L ABG Total CO2 14 L (19-24) mmol/L ABG O2 Saturation 97.6 H (94-97) % Sodium (137-145) mmol/L Chloride 110 H (98-107) mmol/L Carbon Dioxide 13 L (22-30) mmol/L BUN 57 H (9-20) mg/dL Creatinine 2.83 H (0.66-1.25) mg/dL Glucose 122 H (74-99) mg/dL POC Glucose (mg/dL) 109 H (75-99) mg/dL Plasma Lactic Acid Carl (0.7-2.0) mmol/L Calcium 5.8 L* (8.4-10.2) mg/dL Ionized Calcium Michael (4.5-5.3) mg/dL Phosphorus (2.5-4.5) mg/dL Total Bilirubin (0.2-1.3) mg/dL AST 915 H (17-59) U/L ALT 569 H (4-49) U/L Alkaline Phosphatase 23 L (38-126) U/L Troponin I (0.000-0.034) ng/mL Total Protein 2.1 L (6.3-8.2) g/dL Albumin 1.1 L (3.5-5.0) g/dL Lipase (23-300) U/L Procalcitonin (0.02-0.09) ng/mL Urine Protein (Negative) Urine Glucose (UA) (Negative) Urine Ketones (Negative) Urine Blood (Negative) Ur Leukocyte Esterase (Negative) Urine RBC (0-5) /hpf Urine WBC (0-5) /hpf Urine Mucus (None) /hpf 10/19/19 10/19/19 10/19/19 Range/Units 11:05 12:40 12:52 WBC 44.6 H (3.8-10.6) k/uL Hgb 17.9 H D (13.0-17.5) gm/dL Hct 57.3 H* (39.0-53.0) % MCV 101.8 H (80.0-100.0) fL Plt Count (150-450) k/uL Neutrophils # (Manual) 39.60 H (1.3-7.7) k/uL Monocytes # (Manual) 1.34 H (0-1.0) k/uL Metamyelocytes # (Man) 0.89 H (0) k/uL Myelocytes # (Manual) 1.34 H (0) k/uL Nucleated RBCs 1 H (0-0) /100 WBC PT (9.0-12.0) sec INR (<1.2) APTT (22.0-30.0) sec ABG pH 7.12 L* (7.35-7.45) ABG pCO2 (35-45) mmHg ABG pO2 (83-108) mmHg ABG HCO3 12 L (21-25) mmol/L ABG Total CO2 13 L (19-24) mmol/L ABG O2 Saturation (94-97) % Sodium (137-145) mmol/L Chloride (98-107) mmol/L Carbon Dioxide (22-30) mmol/L BUN (9-20) mg/dL Creatinine (0.66-1.25) mg/dL Glucose (74-99) mg/dL POC Glucose (mg/dL) (75-99) mg/dL Plasma Lactic Acid Carl (0.7-2.0) mmol/L Calcium (8.4-10.2) mg/dL Ionized Calcium Michael (4.5-5.3) mg/dL Phosphorus (2.5-4.5) mg/dL Total Bilirubin (0.2-1.3) mg/dL AST (17-59) U/L ALT (4-49) U/L Alkaline Phosphatase (38-126) U/L Troponin I 1.360 H* (0.000-0.034) ng/mL Total Protein (6.3-8.2) g/dL Albumin (3.5-5.0) g/dL Lipase (23-300) U/L Procalcitonin (0.02-0.09) ng/mL Urine Protein (Negative) Urine Glucose (UA) (Negative) Urine Ketones (Negative) Urine Blood (Negative) Ur Leukocyte Esterase (Negative) Urine RBC (0-5) /hpf Urine WBC (0-5) /hpf Urine Mucus (None) /hpf 10/19/19 10/19/19 10/19/19 Range/Units 12:53 14:29 14:29 WBC (3.8-10.6) k/uL Hgb (13.0-17.5) gm/dL Hct (39.0-53.0) % MCV (80.0-100.0) fL Plt Count (150-450) k/uL Neutrophils # (Manual) (1.3-7.7) k/uL Monocytes # (Manual) (0-1.0) k/uL Metamyelocytes # (Man) (0) k/uL Myelocytes # (Manual) (0) k/uL Nucleated RBCs (0-0) /100 WBC PT (9.0-12.0) sec INR (<1.2) APTT (22.0-30.0) sec ABG pH (7.35-7.45) ABG pCO2 (35-45) mmHg ABG pO2 (83-108) mmHg ABG HCO3 (21-25) mmol/L ABG Total CO2 (19-24) mmol/L ABG O2 Saturation (94-97) % Sodium (137-145) mmol/L Chloride (98-107) mmol/L Carbon Dioxide (22-30) mmol/L BUN (9-20) mg/dL Creatinine (0.66-1.25) mg/dL Glucose (74-99) mg/dL POC Glucose (mg/dL) (75-99) mg/dL Plasma Lactic Acid Carl 18.3 H* (0.7-2.0) mmol/L Calcium (8.4-10.2) mg/dL Ionized Calcium Michael 3.6 L (4.5-5.3) mg/dL Phosphorus 10.3 H* (2.5-4.5) mg/dL Total Bilirubin (0.2-1.3) mg/dL AST (17-59) U/L ALT (4-49) U/L Alkaline Phosphatase (38-126) U/L Troponin I (0.000-0.034) ng/mL Total Protein (6.3-8.2) g/dL Albumin (3.5-5.0) g/dL Lipase (23-300) U/L Procalcitonin (0.02-0.09) ng/mL Urine Protein (Negative) Urine Glucose (UA) (Negative) Urine Ketones (Negative) Urine Blood (Negative) Ur Leukocyte Esterase (Negative) Urine RBC (0-5) /hpf Urine WBC (0-5) /hpf Urine Mucus (None) /hpf 10/19/19 10/19/19 10/19/19 Range/Units 16:07 16:28 17:51 WBC (3.8-10.6) k/uL Hgb (13.0-17.5) gm/dL Hct (39.0-53.0) % MCV (80.0-100.0) fL Plt Count (150-450) k/uL Neutrophils # (Manual) (1.3-7.7) k/uL Monocytes # (Manual) (0-1.0) k/uL Metamyelocytes # (Man) (0) k/uL Myelocytes # (Manual) (0) k/uL Nucleated RBCs (0-0) /100 WBC PT (9.0-12.0) sec INR (<1.2) APTT (22.0-30.0) sec ABG pH 7.20 L (7.35-7.45) ABG pCO2 34 L (35-45) mmHg ABG pO2 72 L (83-108) mmHg ABG HCO3 13 L (21-25) mmol/L ABG Total CO2 14 L (19-24) mmol/L ABG O2 Saturation 90.3 L (94-97) % Sodium (137-145) mmol/L Chloride (98-107) mmol/L Carbon Dioxide (22-30) mmol/L BUN (9-20) mg/dL Creatinine (0.66-1.25) mg/dL Glucose (74-99) mg/dL POC Glucose (mg/dL) 237 H (75-99) mg/dL Plasma Lactic Acid Carl (0.7-2.0) mmol/L Calcium (8.4-10.2) mg/dL Ionized Calcium Michael (4.5-5.3) mg/dL Phosphorus (2.5-4.5) mg/dL Total Bilirubin (0.2-1.3) mg/dL AST (17-59) U/L ALT (4-49) U/L Alkaline Phosphatase (38-126) U/L Troponin I (0.000-0.034) ng/mL Total Protein (6.3-8.2) g/dL Albumin (3.5-5.0) g/dL Lipase (23-300) U/L Procalcitonin (0.02-0.09) ng/mL Urine Protein 1+ H (Negative) Urine Glucose (UA) 1+ H (Negative) Urine Ketones Trace H (Negative) Urine Blood Moderate H (Negative) Ur Leukocyte Esterase Trace H (Negative) Urine RBC 53 H (0-5) /hpf Urine WBC 14 H (0-5) /hpf Urine Mucus Rare H (None) /hpf 10/19/19 10/19/19 10/19/19 Range/Units 17:52 18:06 18:58 WBC 34.9 H (3.8-10.6) k/uL Hgb (13.0-17.5) gm/dL Hct (39.0-53.0) % MCV 101.1 H (80.0-100.0) fL Plt Count 142 L (150-450) k/uL Neutrophils # (Manual) (1.3-7.7) k/uL Monocytes # (Manual) (0-1.0) k/uL Metamyelocytes # (Man) (0) k/uL Myelocytes # (Manual) (0) k/uL Nucleated RBCs (0-0) /100 WBC PT (9.0-12.0) sec INR (<1.2) APTT (22.0-30.0) sec ABG pH 7.20 L (7.35-7.45) ABG pCO2 32 L (35-45) mmHg ABG pO2 (83-108) mmHg ABG HCO3 12 L (21-25) mmol/L ABG Total CO2 13 L (19-24) mmol/L ABG O2 Saturation 93.5 L (94-97) % Sodium (137-145) mmol/L Chloride (98-107) mmol/L Carbon Dioxide (22-30) mmol/L BUN (9-20) mg/dL Creatinine (0.66-1.25) mg/dL Glucose (74-99) mg/dL POC Glucose (mg/dL) (75-99) mg/dL Plasma Lactic Acid Carl 18.9 H* (0.7-2.0) mmol/L Calcium (8.4-10.2) mg/dL Ionized Calcium Michael (4.5-5.3) mg/dL Phosphorus (2.5-4.5) mg/dL Total Bilirubin (0.2-1.3) mg/dL AST (17-59) U/L ALT (4-49) U/L Alkaline Phosphatase (38-126) U/L Troponin I (0.000-0.034) ng/mL Total Protein (6.3-8.2) g/dL Albumin (3.5-5.0) g/dL Lipase (23-300) U/L Procalcitonin (0.02-0.09) ng/mL Urine Protein (Negative) Urine Glucose (UA) (Negative) Urine Ketones (Negative) Urine Blood (Negative) Ur Leukocyte Esterase (Negative) Urine RBC (0-5) /hpf Urine WBC (0-5) /hpf Urine Mucus (None) /hpf 10/19/19 10/20/19 10/20/19 Range/Units 22:00 00:00 00:40 WBC 27.0 H (3.8-10.6) k/uL Hgb (13.0-17.5) gm/dL Hct (39.0-53.0) % MCV 105.9 H (80.0-100.0) fL Plt Count 100 L (150-450) k/uL Neutrophils # (Manual) (1.3-7.7) k/uL Monocytes # (Manual) (0-1.0) k/uL Metamyelocytes # (Man) (0) k/uL Myelocytes # (Manual) (0) k/uL Nucleated RBCs (0-0) /100 WBC PT (9.0-12.0) sec INR (<1.2) APTT (22.0-30.0) sec ABG pH (7.35-7.45) ABG pCO2 (35-45) mmHg ABG pO2 (83-108) mmHg ABG HCO3 (21-25) mmol/L ABG Total CO2 (19-24) mmol/L ABG O2 Saturation (94-97) % Sodium (137-145) mmol/L Chloride (98-107) mmol/L Carbon Dioxide (22-30) mmol/L BUN (9-20) mg/dL Creatinine (0.66-1.25) mg/dL Glucose (74-99) mg/dL POC Glucose (mg/dL) 197 H (75-99) mg/dL Plasma Lactic Acid Carl 21.2 H* (0.7-2.0) mmol/L Calcium (8.4-10.2) mg/dL Ionized Calcium Michael (4.5-5.3) mg/dL Phosphorus (2.5-4.5) mg/dL Total Bilirubin (0.2-1.3) mg/dL AST (17-59) U/L ALT (4-49) U/L Alkaline Phosphatase (38-126) U/L Troponin I (0.000-0.034) ng/mL Total Protein (6.3-8.2) g/dL Albumin (3.5-5.0) g/dL Lipase (23-300) U/L Procalcitonin (0.02-0.09) ng/mL Urine Protein (Negative) Urine Glucose (UA) (Negative) Urine Ketones (Negative) Urine Blood (Negative) Ur Leukocyte Esterase (Negative) Urine RBC (0-5) /hpf Urine WBC (0-5) /hpf Urine Mucus (None) /hpf 10/20/19 10/20/19 10/20/19 Range/Units 02:30 05:24 05:50 WBC (3.8-10.6) k/uL Hgb (13.0-17.5) gm/dL Hct (39.0-53.0) % MCV (80.0-100.0) fL Plt Count (150-450) k/uL Neutrophils # (Manual) (1.3-7.7) k/uL Monocytes # (Manual) (0-1.0) k/uL Metamyelocytes # (Man) (0) k/uL Myelocytes # (Manual) (0) k/uL Nucleated RBCs (0-0) /100 WBC PT (9.0-12.0) sec INR (<1.2) APTT (22.0-30.0) sec ABG pH 7.08 L* (7.35-7.45) ABG pCO2 (35-45) mmHg ABG pO2 73 L (83-108) mmHg ABG HCO3 13 L (21-25) mmol/L ABG Total CO2 14 L (19-24) mmol/L ABG O2 Saturation 89.8 L (94-97) % Sodium 130 L (137-145) mmol/L Chloride 94 L (98-107) mmol/L Carbon Dioxide 13 L (22-30) mmol/L BUN 49 H (9-20) mg/dL Creatinine 3.71 H (0.66-1.25) mg/dL Glucose 356 H (74-99) mg/dL POC Glucose (mg/dL) (75-99) mg/dL Plasma Lactic Acid Carl 21.2 H* (0.7-2.0) mmol/L Calcium 5.2 L* (8.4-10.2) mg/dL Ionized Calcium Michael (4.5-5.3) mg/dL Phosphorus (2.5-4.5) mg/dL Total Bilirubin 1.6 H (0.2-1.3) mg/dL AST 9018 H (17-59) U/L ALT 3708 H (4-49) U/L Alkaline Phosphatase 25 L (38-126) U/L Troponin I (0.000-0.034) ng/mL Total Protein 2.1 L (6.3-8.2) g/dL Albumin 1.1 L (3.5-5.0) g/dL Lipase 383 H (23-300) U/L Procalcitonin (0.02-0.09) ng/mL Urine Protein (Negative) Urine Glucose (UA) (Negative) Urine Ketones (Negative) Urine Blood (Negative) Ur Leukocyte Esterase (Negative) Urine RBC (0-5) /hpf Urine WBC (0-5) /hpf Urine Mucus (None) /hpf 10/20/19 10/20/19 10/20/19 Range/Units 05:50 05:50 05:52 WBC 29.5 H (3.8-10.6) k/uL Hgb (13.0-17.5) gm/dL Hct (39.0-53.0) % MCV 105.5 H (80.0-100.0) fL Plt Count 78 L (150-450) k/uL Neutrophils # (Manual) (1.3-7.7) k/uL Monocytes # (Manual) (0-1.0) k/uL Metamyelocytes # (Man) (0) k/uL Myelocytes # (Manual) (0) k/uL Nucleated RBCs (0-0) /100 WBC PT 36.9 H (9.0-12.0) sec INR 3.7 H (<1.2) APTT (22.0-30.0) sec ABG pH (7.35-7.45) ABG pCO2 (35-45) mmHg ABG pO2 (83-108) mmHg ABG HCO3 (21-25) mmol/L ABG Total CO2 (19-24) mmol/L ABG O2 Saturation (94-97) % Sodium (137-145) mmol/L Chloride (98-107) mmol/L Carbon Dioxide (22-30) mmol/L BUN (9-20) mg/dL Creatinine (0.66-1.25) mg/dL Glucose (74-99) mg/dL POC Glucose (mg/dL) 344 H (75-99) mg/dL Plasma Lactic Acid Carl (0.7-2.0) mmol/L Calcium (8.4-10.2) mg/dL Ionized Calcium Michael (4.5-5.3) mg/dL Phosphorus (2.5-4.5) mg/dL Total Bilirubin (0.2-1.3) mg/dL AST (17-59) U/L ALT (4-49) U/L Alkaline Phosphatase (38-126) U/L Troponin I (0.000-0.034) ng/mL Total Protein (6.3-8.2) g/dL Albumin (3.5-5.0) g/dL Lipase (23-300) U/L Procalcitonin (0.02-0.09) ng/mL Urine Protein (Negative) Urine Glucose (UA) (Negative) Urine Ketones (Negative) Urine Blood (Negative) Ur Leukocyte Esterase (Negative) Urine RBC (0-5) /hpf Urine WBC (0-5) /hpf Urine Mucus (None) /hpf Microbiology - Last 24 Hours (Table) 10/19/19 16:28 Urine Culture - Preliminary Urine,Voided Assessment and Plan Plan: 1. Recurrent episodes of multiple syncope most likely secondary to an acute abdomen. Consults with pulmonary medicine and cardiology appreciated. Echocardiogram, carotid ultrasound and EEG as above. 2. Incarcerated femoral hernia and small bowel obstruction status post exploratory laparotomy and small bowel resection, postop day 0. Consult with Dr. Joe appreciated. Continue postop care. Consult with Dr. Urias has been added and following. 3. Acute hypoxic respiratory failure intubated and on mechanical ventilation. Dr. Urias is on for [employer] management. 4. Severe metabolic acidosis and lactic acidosis. Patient is status post sodium bicarb drip. 5. Anuria and acute kidney injury. Consult with nephrology added. 6. Acute blood loss on surgical site. CBCs every 6 hours. Patient be transfused if hemoglobin less than 7.5. 7. Leukocytosis and sepsis secondary to small bowel obstruction, abdominal sepsis, severe sepsis with septic shock and multiorgan failure. 8. Shock liver with elevated liver function tests and INR. Continue to monitor. 9. Cardiopulmonary arrest requiring CPR for 12 minutes with PEA. Troponin 1.360 with possible non-ST elevated myocardial infarction. Consult with cardiology appreciated. 10. Hemoconcentration with elevated hematocrit, polycythemia possibly possibly secondary to volume contraction. 11. Pacemaker placement with AICD most likely secondary to sick sinus syndrome, stable. 12. Patient may have a history of atrial fibrillation, patient denies. Patient has been on eliquis unclear reason. 13. Chronic kidney disease stage III. 14. Perihepatic ascites secondary to acute abdomen. 15. Known history of colon cancer diagnosed 2016, with 11 surgeries related to complications including obstruction, last major surgery was in 2016 16. PAD, with recent angioplasty done on the right leg 17. History of nephrolithiasis, stable. Patient has seen Dr. Jordan with prior lithotripsy CODE STATUS: No code, continue vasopressors and current management Prognosis poor Impression and plan of care have been directed as dictated by the signing physician. Bina Donis nurse practitioner acting as scribe for signing physician.
[2019-10-20] MEDS ORDERED: Potassium Replacement Protocol 1 EACH MISC MISCELLANE PRN (09:20)
[2019-10-20] MEDS ORDERED: SODIUM CHLORIDE 0.9% 1,000 ML IV SCH (09:30)
[2019-10-20 09:50] LABS: Glucose,Whole Blood 338 mg/dL (75-99)
[2019-10-20] MEDS: POTASSIUM CHLORIDE 20 MEQ in WATER FOR INJECTION 1 100ML.BAG IVPB SCH ×2 (09:55→11:24)
--- NOTE | 2019-10-20 10:06 | PN ---
PROGRESS NOTE PULMONARY/CRITICAL CARE PROGRESS NOTE: DATE OF SERVICE: October 20, 2019 This is an 78-year-old gentleman who I saw yesterday in consultation. He came to the emergency room on October 18 complaining of syncopal episodes. The patient apparently had multiple episodes of syncope and was just not feeling well over the last 2 days prior to admission. He had profound dehydration and severe weakness and was thought to have some underlying sepsis. He was discovered by surgery to have an incarcerated hernia. He had a previous history of colon cancer with previous colostomy. He was quite hypotensive and hypothermic in the emergency room. I was called by the ER doctor and the patient was admitted to the ICU. Initial treatment included antibiotics, fluid resuscitation and warming. The bowel apparently was incarcerated and the patient went to the operating room emergently for surgery. The patient had a small-bowel resection. Dr. Joe did the surgery. The abdomen was left open. The plan was to take the patient back for anastomosis. Subsequently, but unfortunately, the patient is very unstable. Currently, the patient remains on the mechanical ventilator. He is on the volume assist-control mode rate of 20, tidal volume 450, FiO2 of 60%, PEEP of 5. Blood gases show pO2 of 73, a pCO2 of 44, and pH 7.08. For that blood gas, he received 2 additional amps of sodium bicarbonate IV push. This morning, I was informed by the nurse that he had a pneumothorax on chest x- ray. It was about 50%. I put a left chest tube in. We inserted a #28-[place] chest tube without difficulty. The patient had developed a tension pneumothorax on that side. In addition to the mechanical ventilator, he is on a bicarbonate drip, 3 amps of sodium bicarbonate and D5W at 200 mL an hour, lactated Ringer's at 200 mL an hour, propofol at 20 mcg/kg per minute, vasopressin 0.04 units/minute, Levophed at 81 mcg/minute, epinephrine at 41 mcg/minute. He is also getting hydrocortisone at 12 mg/hour for suspected relative adrenal insufficiency. Currently, his blood pressure is only about 80 to 85 systolic. PHYSICAL EXAMINATION: VITAL SIGNS: Current vital signs are reviewed. Temperature is 97.3, heart rate 117, respiratory rate is 24, blood pressure is 78/64, and saturations are low to mid 90s. GENERAL: He is currently sedated. HEENT: Examination is grossly unremarkable. There is an orally placed endotracheal tube and NG tube. NECK: Supple. Full range of motion. CARDIOVASCULAR: Examination reveals tachycardia. Heart rate 115 to 120. It is relatively regular. LUNGS: Reveal coarse bilateral rhonchi. Breath sounds equal. There are some bibasilar crackles. No wheezes. ABDOMEN: Soft. No bowel sounds are heard. EXTREMITIES: Are intact. Slight edema. His toes are cold. No cyanosis or clubbing. SKIN: Without rash. NEUROLOGIC: Examination cannot be adequately assessed. Microbiologic studies are thus far all negative. Chest x-ray post chest tube shows much improved left-sided pneumothorax. There is still about a 20% to 25% pneumothorax on the left side. LABS: Labs are reviewed. White count 29.5, hemoglobin 14.7, hematocrit 46.5, platelet count 78,000. PT/INR 36.9 at 3.7. Blood gases have been mentioned 73, 44 and 7.08 with a pO2, pCO2, and pH. Sodium 130, potassium 3.5, chloride 94, CO2 of 13. Anion gap is 23. BUN and creatinine were 49 and 3.71. Lactic acid has risen to 21.2. Calcium 5.2. Bilirubin 1.6, AST 9018, ALT 3708, lipase 383. Albumin 1.1. The corrected calcium is still a bit low. An ionized calcium was ordered and 1 amp of calcium chloride is given. CURRENT MEDICATIONS: Current medications include Peridex, epinephrine, subcu heparin, hydrocortisone as mentioned earlier, insulin protocol, DuoNeb, lactated Ringer's, Narcan, norepinephrine, Zofran, Protonix, Zosyn, potassium replacement, propofol, sodium bicarbonate drip, and vasopressin again at 0.04 units/minute. ASSESSMENT: 1. Postoperative day #1 status post exploratory laparotomy and small-bowel resection for incarcerated hernia. 2. Routine postoperative ventilator management. 3. Profound metabolic acidosis with lactic acidemia. 4. Spontaneous left-sided pneumothorax, status post chest tube placement on October 20. 5. Severe dehydration and syncope prior to admission. 6. Prior history of colon cancer with previous colostomy. 7. Status post AICD placement. 8. History of hyperlipidemia. 9. History of hypertension. 10.Benign prostatic hypertrophy. 11.History of skin cancer. 12.History of cardiac arrhythmia. 13.History of kidney stones. 14.History of gallstones. 15.Prior history of multiple abdominal procedures with abdominal hernia. 16.History of macular degeneration. 17.Prior heart catheterization with stent placement. 18.Previous history of left-sided nephrostomy tube. PLAN: The patient received a left-sided chest tube this morning. We inserted a #28- [place] chest tube. That was because he developed spontaneous pneumothorax and tension pneumothorax while on the mechanical ventilator. He remains on high doses of vasopressors. He remains on a bicarbonate drip. He is still quite acidotic with a pH 7.08. He is on hydrocortisone drip for suspected relative adrenal insufficiency. Oxygenation is reasonable. We will continue to follow. Overall prognosis is very poor. The family has been notified. CRITICAL CARE TIME: 34 minutes. RAE / SHERRI: [id number] / MTDD
[2019-10-20] MEDS ORDERED: INSULIN REGULAR BOLUS (FROM DRIP BAG) IV PRN (10:28)
[2019-10-20] MEDS ORDERED: INSULIN REGULAR 100 UNIT in SODIUM CHLORIDE 0.9% 100 ML IV SCH (10:30)
[2019-10-20 11:04] LABS: Glucose,Whole Blood 440 mg/dL (75-99)
--- NOTE | 2019-10-20 11:22 | P.PN ---
Subjective Progress Note Date: 10/20/19 Principal diagnosis: S/P small bowel resection for small bowel necrosis The patient is postoperative day one laparotomy with segmental small bowel resection for ischemic bowel due to an incarcerated femoral hernia. He remains critically ill. He is on multiple pressors and bicarb. Sedated on the ventilator. He did develop a pneumothorax which was treated with a thoracostomy tubes this morning. Objective - Vital Signs Vital signs: Vital Signs Temp 97.3 F L 10/20/19 08:00 Pulse 67 10/20/19 10:15 Resp 22 10/20/19 10:15 BP 80/60 10/20/19 10:15 Pulse Ox 91 L 10/20/19 10:15 Intake & Output 10/19/19 10/20/19 10/20/19 18:59 06:59 18:59 Intake Total 8407.765 6266.558 2379.922 Output Total 2504 666 896 Balance 5903.765 5600.558 1483.922 Weight 99 kg Intake: IV 2780 4400 1500 Dextrose 5% in Water 1, 2200 800 000 ml @ 200 mls/hr IV . Q5H45M DENA[facility] with Sodium Bicarb (1 Meq/ml) 150 ml Rx#:[id number] LR 2200 700 Sodium Chloride 0.9% 1, 1730 000 ml @ 130 mls/hr IV . Q7H42M [facility]NA[facility] Rx#:[id number] Intake, IV Titration 4408.765 1866.558 879.922 Amount Calcium Gluconate 1 gm In 100 Sodium Chloride 0.9% 100 ml @ 100 mls/hr IVPB ONCE ONE Rx#:[id number] Dextrose 5% in Water 1, 1000 200 000 ml @ 200 mls/hr IV . Q5H45M DENAE with Sodium Bicarb (1 Meq/ml) 150 ml Rx#:[id number] EPINEPHrine 4 mg In 582.160 4828.460 439.830 Dextrose 5% in Water 250 ml @ 0.01 MCG/KG/MIN 3. 062 mls/hr IV .Q24H [facility] Rx#:[id number] Lactated Ringers 1,000 ml 1000 @ 999 mls/hr IV .Q1H1M ONE Rx#:[id number] Norepinephrine 32 mg In 0.025 209.22 Sodium Chloride 0.9% 218 ml @ 0.02 MCG/KG/MIN 0. 765 mls/hr IV .Q24H [facility] Rx#:[id number] Norepinephrine 4 mg In 254.000 Sodium Chloride 0.9% 250 ml @ 0.05 MCG/KG/MIN 15. 554 mls/hr IV .A06Q53Q [facility] Rx#:[id number] Norepinephrine 8 mg In 353.128 Sodium Chloride 0.9% 250 ml @ 0.05 MCG/KG/MIN 7. 899 mls/hr IV .Q24H [facility] Rx#:[id number] Piperacillin-Tazobactam 3 100 100 .375 gm In Sodium Chloride 0.9% 100 ml @ 25 mls/hr IVPB Q8HR [facility] Rx# :[id number] Potassium Chloride 20 meq 100 In Water For Injection 1 100ml.bag @ 50 mls/hr IVPB Q2H [facility] Rx#: [id number] Propofol 1,000 mg In 6.369 57.318 117.412 Empty Bag 1 bag @ Titrate IV .Q0M [facility] Rx#: [id number] Sodium Chloride 0.9% 1, 1000 000 ml @ 0 mls/hr IV .STK -MED ONE Rx#:[id number] Sodium Chloride 0.9% 1, 400 000 ml @ 100 mls/hr IV . Q10H [facility] Rx#:[id number] Sodium Chloride 0.9% 50 24.48 6.12 18.36 ml @ 0.04 UNITS/MIN 6.12 mls/hr IVPB .Q8H20M [facility]NA[facility] with Vasopressin 20 unit Rx#:[id number] Sodium Chloride 0.9% 50 5.76 1.44 4.32 ml @ 12 MG/HR 1.44 mls/hr IVPB .Q24H [facility] with Hydrocortisone Succinate 500 mg Rx#:[id number] Blood Product 1219 Ffp 24 Cpd Unit 315 [id number] Ffp 24 Cpd Unit 294 [id number] Ffp 24 Cpd Unit 276 [id number] Ffp 24 Cpd Unit 334 [id number] Output: Chest Tube Drainage 390 Chest Tube Left Lateral 390 Chest Gastric Drainage 200 Drainage 2225 650 500 Anterior Medial Abdomen 2225 650 500 Urine 29 16 6 Estimated Blood Loss 50 Other: Voiding Method Indwelling Catheter Indwelling Catheter Indwelling Catheter ABP, PAP, CO, CI - Last Documented Arterial Blood Pressure 78/41 - Constitutional Constitutional Comment(s): Sedated on the ventilator - Gastrointestinal Gastrointestinal Comment(s): There is a wound VAC on his abdomen. It has been draining serosanguineous fluid. There is a small amount of bloody drainage from his colostomy. - Labs CBC & Chem 7: 10/20/19 05:50 10/20/19 05:50 Labs: Abnormal Lab Results - Last 24 Hours (Table) 10/19/19 10/19/19 10/19/19 Range/Units 10:30 11:05 11:05 WBC 44.6 H (3.8-10.6) k/uL Hgb 17.9 H D (13.0-17.5) gm/dL Hct 57.3 H* (39.0-53.0) % MCV 101.8 H (80.0-100.0) fL Plt Count (150-450) k/uL Neutrophils # (Manual) 39.60 H (1.3-7.7) k/uL Monocytes # (Manual) 1.34 H (0-1.0) k/uL Metamyelocytes # (Man) 0.89 H (0) k/uL Myelocytes # (Manual) 1.34 H (0) k/uL Nucleated RBCs 1 H (0-0) /100 WBC PT 20.0 H (9.0-12.0) sec INR 2.0 H (<1.2) APTT 44.7 H (22.0-30.0) sec ABG pH (7.35-7.45) ABG pCO2 (35-45) mmHg ABG pO2 (83-108) mmHg ABG HCO3 (21-25) mmol/L ABG Total CO2 (19-24) mmol/L ABG O2 Saturation (94-97) % Sodium (137-145) mmol/L Chloride 110 H (98-107) mmol/L Carbon Dioxide 13 L (22-30) mmol/L BUN 57 H (9-20) mg/dL Creatinine 2.83 H (0.66-1.25) mg/dL Glucose 122 H (74-99) mg/dL POC Glucose (mg/dL) (75-99) mg/dL Plasma Lactic Acid Carl (0.7-2.0) mmol/L Calcium 5.8 L* (8.4-10.2) mg/dL Ionized Calcium Michael (4.5-5.3) mg/dL Phosphorus (2.5-4.5) mg/dL Total Bilirubin (0.2-1.3) mg/dL AST 915 H (17-59) U/L ALT 569 H (4-49) U/L Alkaline Phosphatase 23 L (38-126) U/L Troponin I (0.000-0.034) ng/mL Total Protein 2.1 L (6.3-8.2) g/dL Albumin 1.1 L (3.5-5.0) g/dL Lipase (23-300) U/L Urine Protein (Negative) Urine Glucose (UA) (Negative) Urine Ketones (Negative) Urine Blood (Negative) Ur Leukocyte Esterase (Negative) Urine RBC (0-5) /hpf Urine WBC (0-5) /hpf Urine Mucus (None) /hpf 10/19/19 10/19/19 10/19/19 Range/Units 12:40 12:52 12:53 WBC (3.8-10.6) k/uL Hgb (13.0-17.5) gm/dL Hct (39.0-53.0) % MCV (80.0-100.0) fL Plt Count (150-450) k/uL Neutrophils # (Manual) (1.3-7.7) k/uL Monocytes # (Manual) (0-1.0) k/uL Metamyelocytes # (Man) (0) k/uL Myelocytes # (Manual) (0) k/uL Nucleated RBCs (0-0) /100 WBC PT (9.0-12.0) sec INR (<1.2) APTT (22.0-30.0) sec ABG pH 7.12 L* (7.35-7.45) ABG pCO2 (35-45) mmHg ABG pO2 (83-108) mmHg ABG HCO3 12 L (21-25) mmol/L ABG Total CO2 13 L (19-24) mmol/L ABG O2 Saturation (94-97) % Sodium (137-145) mmol/L Chloride (98-107) mmol/L Carbon Dioxide (22-30) mmol/L BUN (9-20) mg/dL Creatinine (0.66-1.25) mg/dL Glucose (74-99) mg/dL POC Glucose (mg/dL) (75-99) mg/dL Plasma Lactic Acid Acrl (0.7-2.0) mmol/L Calcium (8.4-10.2) mg/dL Ionized Calcium Michael 3.6 L (4.5-5.3) mg/dL Phosphorus (2.5-4.5) mg/dL Total Bilirubin (0.2-1.3) mg/dL AST (17-59) U/L ALT (4-49) U/L Alkaline Phosphatase (38-126) U/L Troponin I 1.360 H* (0.000-0.034) ng/mL Total Protein (6.3-8.2) g/dL Albumin (3.5-5.0) g/dL Lipase (23-300) U/L Urine Protein (Negative) Urine Glucose (UA) (Negative) Urine Ketones (Negative) Urine Blood (Negative) Ur Leukocyte Esterase (Negative) Urine RBC (0-5) /hpf Urine WBC (0-5) /hpf Urine Mucus (None) /hpf 10/19/19 10/19/19 10/19/19 Range/Units 14:29 14:29 16:07 WBC (3.8-10.6) k/uL Hgb (13.0-17.5) gm/dL Hct (39.0-53.0) % MCV (80.0-100.0) fL Plt Count (150-450) k/uL Neutrophils # (Manual) (1.3-7.7) k/uL Monocytes # (Manual) (0-1.0) k/uL Metamyelocytes # (Man) (0) k/uL Myelocytes # (Manual) (0) k/uL Nucleated RBCs (0-0) /100 WBC PT (9.0-12.0) sec INR (<1.2) APTT (22.0-30.0) sec ABG pH 7.20 L (7.35-7.45) ABG pCO2 34 L (35-45) mmHg ABG pO2 72 L (83-108) mmHg ABG HCO3 13 L (21-25) mmol/L ABG Total CO2 14 L (19-24) mmol/L ABG O2 Saturation 90.3 L (94-97) % Sodium (137-145) mmol/L Chloride (98-107) mmol/L Carbon Dioxide (22-30) mmol/L BUN (9-20) mg/dL Creatinine (0.66-1.25) mg/dL Glucose (74-99) mg/dL POC Glucose (mg/dL) (75-99) mg/dL Plasma Lactic Acid Carl 18.3 H* (0.7-2.0) mmol/L Calcium (8.4-10.2) mg/dL Ionized Calcium Michael (4.5-5.3) mg/dL Phosphorus 10.3 H* (2.5-4.5) mg/dL Total Bilirubin (0.2-1.3) mg/dL AST (17-59) U/L ALT (4-49) U/L Alkaline Phosphatase (38-126) U/L Troponin I (0.000-0.034) ng/mL Total Protein (6.3-8.2) g/dL Albumin (3.5-5.0) g/dL Lipase (23-300) U/L Urine Protein (Negative) Urine Glucose (UA) (Negative) Urine Ketones (Negative) Urine Blood (Negative) Ur Leukocyte Esterase (Negative) Urine RBC (0-5) /hpf Urine WBC (0-5) /hpf Urine Mucus (None) /hpf 10/19/19 10/19/19 10/19/19 Range/Units 16:28 17:51 17:52 WBC 34.9 H (3.8-10.6) k/uL Hgb (13.0-17.5) gm/dL Hct (39.0-53.0) % MCV 101.1 H (80.0-100.0) fL Plt Count 142 L (150-450) k/uL Neutrophils # (Manual) (1.3-7.7) k/uL Monocytes # (Manual) (0-1.0) k/uL Metamyelocytes # (Man) (0) k/uL Myelocytes # (Manual) (0) k/uL Nucleated RBCs (0-0) /100 WBC PT (9.0-12.0) sec INR (<1.2) APTT (22.0-30.0) sec ABG pH (7.35-7.45) ABG pCO2 (35-45) mmHg ABG pO2 (83-108) mmHg ABG HCO3 (21-25) mmol/L ABG Total CO2 (19-24) mmol/L ABG O2 Saturation (94-97) % Sodium (137-145) mmol/L Chloride (98-107) mmol/L Carbon Dioxide (22-30) mmol/L BUN (9-20) mg/dL Creatinine (0.66-1.25) mg/dL Glucose (74-99) mg/dL POC Glucose (mg/dL) 237 H (75-99) mg/dL Plasma Lactic Acid Carl (0.7-2.0) mmol/L Calcium (8.4-10.2) mg/dL Ionized Calcium Michael (4.5-5.3) mg/dL Phosphorus (2.5-4.5) mg/dL Total Bilirubin (0.2-1.3) mg/dL AST (17-59) U/L ALT (4-49) U/L Alkaline Phosphatase (38-126) U/L Troponin I (0.000-0.034) ng/mL Total Protein (6.3-8.2) g/dL Albumin (3.5-5.0) g/dL Lipase (23-300) U/L Urine Protein 1+ H (Negative) Urine Glucose (UA) 1+ H (Negative) Urine Ketones Trace H (Negative) Urine Blood Moderate H (Negative) Ur Leukocyte Esterase Trace H (Negative) Urine RBC 53 H (0-5) /hpf Urine WBC 14 H (0-5) /hpf Urine Mucus Rare H (None) /hpf 10/19/19 10/19/19 10/19/19 Range/Units 18:06 18:58 22:00 WBC (3.8-10.6) k/uL Hgb (13.0-17.5) gm/dL Hct (39.0-53.0) % MCV (80.0-100.0) fL Plt Count (150-450) k/uL Neutrophils # (Manual) (1.3-7.7) k/uL Monocytes # (Manual) (0-1.0) k/uL Metamyelocytes # (Man) (0) k/uL Myelocytes # (Manual) (0) k/uL Nucleated RBCs (0-0) /100 WBC PT (9.0-12.0) sec INR (<1.2) APTT (22.0-30.0) sec ABG pH 7.20 L (7.35-7.45) ABG pCO2 32 L (35-45) mmHg ABG pO2 (83-108) mmHg ABG HCO3 12 L (21-25) mmol/L ABG Total CO2 13 L (19-24) mmol/L ABG O2 Saturation 93.5 L (94-97) % Sodium (137-145) mmol/L Chloride (98-107) mmol/L Carbon Dioxide (22-30) mmol/L BUN (9-20) mg/dL Creatinine (0.66-1.25) mg/dL Glucose (74-99) mg/dL POC Glucose (mg/dL) (75-99) mg/dL Plasma Lactic Acid Carl 18.9 H* 21.2 H* (0.7-2.0) mmol/L Calcium (8.4-10.2) mg/dL Ionized Calcium Michael (4.5-5.3) mg/dL Phosphorus (2.5-4.5) mg/dL Total Bilirubin (0.2-1.3) mg/dL AST (17-59) U/L ALT (4-49) U/L Alkaline Phosphatase (38-126) U/L Troponin I (0.000-0.034) ng/mL Total Protein (6.3-8.2) g/dL Albumin (3.5-5.0) g/dL Lipase (23-300) U/L Urine Protein (Negative) Urine Glucose (UA) (Negative) Urine Ketones (Negative) Urine Blood (Negative) Ur Leukocyte Esterase (Negative) Urine RBC (0-5) /hpf Urine WBC (0-5) /hpf Urine Mucus (None) /hpf 10/20/19 10/20/19 10/20/19 Range/Units 00:00 00:40 02:30 WBC 27.0 H (3.8-10.6) k/uL Hgb (13.0-17.5) gm/dL Hct (39.0-53.0) % MCV 105.9 H (80.0-100.0) fL Plt Count 100 L (150-450) k/uL Neutrophils # (Manual) (1.3-7.7) k/uL Monocytes # (Manual) (0-1.0) k/uL Metamyelocytes # (Man) (0) k/uL Myelocytes # (Manual) (0) k/uL Nucleated RBCs (0-0) /100 WBC PT (9.0-12.0) sec INR (<1.2) APTT (22.0-30.0) sec ABG pH (7.35-7.45) ABG pCO2 (35-45) mmHg ABG pO2 (83-108) mmHg ABG HCO3 (21-25) mmol/L ABG Total CO2 (19-24) mmol/L ABG O2 Saturation (94-97) % Sodium (137-145) mmol/L Chloride (98-107) mmol/L Carbon Dioxide (22-30) mmol/L BUN (9-20) mg/dL Creatinine (0.66-1.25) mg/dL Glucose (74-99) mg/dL POC Glucose (mg/dL) 197 H (75-99) mg/dL Plasma Lactic Acid Carl 21.2 H* (0.7-2.0) mmol/L Calcium (8.4-10.2) mg/dL Ionized Calcium Michael (4.5-5.3) mg/dL Phosphorus (2.5-4.5) mg/dL Total Bilirubin (0.2-1.3) mg/dL AST (17-59) U/L ALT (4-49) U/L Alkaline Phosphatase (38-126) U/L Troponin I (0.000-0.034) ng/mL Total Protein (6.3-8.2) g/dL Albumin (3.5-5.0) g/dL Lipase (23-300) U/L Urine Protein (Negative) Urine Glucose (UA) (Negative) Urine Ketones (Negative) Urine Blood (Negative) Ur Leukocyte Esterase (Negative) Urine RBC (0-5) /hpf Urine WBC (0-5) /hpf Urine Mucus (None) /hpf 10/20/19 10/20/19 10/20/19 Range/Units 05:24 05:50 05:50 WBC 29.5 H (3.8-10.6) k/uL Hgb (13.0-17.5) gm/dL Hct (39.0-53.0) % MCV 105.5 H (80.0-100.0) fL Plt Count 78 L (150-450) k/uL Neutrophils # (Manual) (1.3-7.7) k/uL Monocytes # (Manual) (0-1.0) k/uL Metamyelocytes # (Man) (0) k/uL Myelocytes # (Manual) (0) k/uL Nucleated RBCs (0-0) /100 WBC PT (9.0-12.0) sec INR (<1.2) APTT (22.0-30.0) sec ABG pH 7.08 L* (7.35-7.45) ABG pCO2 (35-45) mmHg ABG pO2 73 L (83-108) mmHg ABG HCO3 13 L (21-25) mmol/L ABG Total CO2 14 L (19-24) mmol/L ABG O2 Saturation 89.8 L (94-97) % Sodium 130 L (137-145) mmol/L Chloride 94 L (98-107) mmol/L Carbon Dioxide 13 L (22-30) mmol/L BUN 49 H (9-20) mg/dL Creatinine 3.71 H (0.66-1.25) mg/dL Glucose 356 H (74-99) mg/dL POC Glucose (mg/dL) (75-99) mg/dL Plasma Lactic Acid Carl (0.7-2.0) mmol/L Calcium 5.2 L* (8.4-10.2) mg/dL Ionized Calcium Michael (4.5-5.3) mg/dL Phosphorus (2.5-4.5) mg/dL Total Bilirubin 1.6 H (0.2-1.3) mg/dL AST 9018 H (17-59) U/L ALT 3708 H (4-49) U/L Alkaline Phosphatase 25 L (38-126) U/L Troponin I (0.000-0.034) ng/mL Total Protein 2.1 L (6.3-8.2) g/dL Albumin 1.1 L (3.5-5.0) g/dL Lipase 383 H (23-300) U/L Urine Protein (Negative) Urine Glucose (UA) (Negative) Urine Ketones (Negative) Urine Blood (Negative) Ur Leukocyte Esterase (Negative) Urine RBC (0-5) /hpf Urine WBC (0-5) /hpf Urine Mucus (None) /hpf 10/20/19 10/20/19 10/20/19 Range/Units 05:50 05:52 09:44 WBC (3.8-10.6) k/uL Hgb (13.0-17.5) gm/dL Hct (39.0-53.0) % MCV (80.0-100.0) fL Plt Count (150-450) k/uL Neutrophils # (Manual) (1.3-7.7) k/uL Monocytes # (Manual) (0-1.0) k/uL Metamyelocytes # (Man) (0) k/uL Myelocytes # (Manual) (0) k/uL Nucleated RBCs (0-0) /100 WBC PT 36.9 H (9.0-12.0) sec INR 3.7 H (<1.2) APTT (22.0-30.0) sec ABG pH (7.35-7.45) ABG pCO2 (35-45) mmHg ABG pO2 (83-108) mmHg ABG HCO3 (21-25) mmol/L ABG Total CO2 (19-24) mmol/L ABG O2 Saturation (94-97) % Sodium (137-145) mmol/L Chloride (98-107) mmol/L Carbon Dioxide (22-30) mmol/L BUN (9-20) mg/dL Creatinine (0.66-1.25) mg/dL Glucose (74-99) mg/dL POC Glucose (mg/dL) 344 H 338 H (75-99) mg/dL Plasma Lactic Acid Carl (0.7-2.0) mmol/L Calcium (8.4-10.2) mg/dL Ionized Calcium Michael (4.5-5.3) mg/dL Phosphorus (2.5-4.5) mg/dL Total Bilirubin (0.2-1.3) mg/dL AST (17-59) U/L ALT (4-49) U/L Alkaline Phosphatase (38-126) U/L Troponin I (0.000-0.034) ng/mL Total Protein (6.3-8.2) g/dL Albumin (3.5-5.0) g/dL Lipase (23-300) U/L Urine Protein (Negative) Urine Glucose (UA) (Negative) Urine Ketones (Negative) Urine Blood (Negative) Ur Leukocyte Esterase (Negative) Urine RBC (0-5) /hpf Urine WBC (0-5) /hpf Urine Mucus (None) /hpf 10/20/19 10/20/19 Range/Units 09:45 11:03 WBC (3.8-10.6) k/uL Hgb (13.0-17.5) gm/dL Hct (39.0-53.0) % MCV (80.0-100.0) fL Plt Count (150-450) k/uL Neutrophils # (Manual) (1.3-7.7) k/uL Monocytes # (Manual) (0-1.0) k/uL Metamyelocytes # (Man) (0) k/uL Myelocytes # (Manual) (0) k/uL Nucleated RBCs (0-0) /100 WBC PT (9.0-12.0) sec INR (<1.2) APTT (22.0-30.0) sec ABG pH (7.35-7.45) ABG pCO2 (35-45) mmHg ABG pO2 (83-108) mmHg ABG HCO3 (21-25) mmol/L ABG Total CO2 (19-24) mmol/L ABG O2 Saturation (94-97) % Sodium (137-145) mmol/L Chloride (98-107) mmol/L Carbon Dioxide (22-30) mmol/L BUN (9-20) mg/dL Creatinine (0.66-1.25) mg/dL Glucose (74-99) mg/dL POC Glucose (mg/dL) 440 H (75-99) mg/dL Plasma Lactic Acid Carl (0.7-2.0) mmol/L Calcium (8.4-10.2) mg/dL Ionized Calcium Michael 3.1 L* (4.5-5.3) mg/dL Phosphorus (2.5-4.5) mg/dL Total Bilirubin (0.2-1.3) mg/dL AST (17-59) U/L ALT (4-49) U/L Alkaline Phosphatase (38-126) U/L Troponin I (0.000-0.034) ng/mL Total Protein (6.3-8.2) g/dL Albumin (3.5-5.0) g/dL Lipase (23-300) U/L Urine Protein (Negative) Urine Glucose (UA) (Negative) Urine Ketones (Negative) Urine Blood (Negative) Ur Leukocyte Esterase (Negative) Urine RBC (0-5) /hpf Urine WBC (0-5) /hpf Urine Mucus (None) /hpf Microbiology - Last 24 Hours (Table) 10/19/19 16:28 Urine Culture - Preliminary Urine,Voided - Imaging and Cardiology Chest x-ray: report reviewed, image reviewed Assessment and Plan (1) Incarcerated femoral hernia Current Visit: Yes Status: Acute Code(s): K41.30 - UNIL FEMORAL HERNIA, W OBST, W/O GANGRENE, NOT SPCF RECUR SNOMED Code(s): 536099682 (2) Dehydration Current Visit: Yes Status: Acute Code(s): E86.0 - DEHYDRATION SNOMED Code(s): 57704692 (3) Syncope Current Visit: Yes Status: Acute Code(s): R55 - SYNCOPE AND COLLAPSE SNOMED Code(s): 214097674 (4) Sepsis Current Visit: Yes Status: Acute Code(s): A41.9 - SEPSIS, UNSPECIFIED ORGANISM SNOMED Code(s): 78775128 (5) Lactic acidosis Current Visit: Yes Status: Acute Code(s): E87.2 - ACIDOSIS SNOMED Code(s): 96101371 (6) Ischemic bowel disease Current Visit: Yes Status: Acute Code(s): K55.9 - VASCULAR DISORDER OF INTESTINE, UNSPECIFIED SNOMED Code(s): 20596991 Plan: The patient remains in critical condition. He has had persistent acidosis. Likelihood of surviving this is fairly low. We'll continue to follow. The small bowel is then discontinuity. The entirety of the small bowel appeared ischemic intraoperatively due to an internal hernia. With the internal hernia was reduced the small bowel pinked up and was showing peristalsis. There is a likelihood that there is some remaining small bowel that is ischemic. Definitive resection was not done yesterday because the bowel appeared that it would recover. We'll reevaluate the patient in the morning. The wound VAC could be changed sterilely at bedside and the bowel could be reassessed without return to the OR or additional anesthetic.
[2019-10-20] MEDS: SODIUM CHLORIDE 0.9% 50 ML with HYDROCORTISONE SUCCINATE 500 MG IVPB SCH ×2 (11:49)
[2019-10-20 11:52] LABS: Glucose,Whole Blood 439 mg/dL (75-99)
[2019-10-20] MEDS: SODIUM CHLORIDE 0.45% 1,000 ML with SODIUM BICARB (1 MEQ/ML) 150 ML IV SCH ×4 (11:52→16:23)
--- NOTE | 2019-10-20 12:00 | PN ---
PROGRESS NOTE Patient is seen for followup for acute kidney injury. He is status post cardiac arrest and emergency exploratory laparotomy and bowel resection for bowel necrosis and incarcerated hernia. The patient coded in the OR. His wound was not closed. He has a wound VAC and he was transferred to the ICU. The patient has been profoundly hypotensive and acidotic requiring large amounts of pressors including epi, levo, and he has been on the bicarb drip at 200 mL an hour. Yesterday, it was unclear if patient would make it throughout the night. However, he did not code again and he is maintaining a blood pressure on large doses of epi and Levophed. He continues to have no urine output. FiO2 is at 60% currently. PHYSICAL EXAMINATION: On examination this morning, blood pressure 91/60, heart rate 71 per minute. He is afebrile. EXAMINATION OF THE HEART: Heart sounds are heard. No rub is heard. EXAMINATION OF THE LUNGS: Bilateral breath sounds are heard. ABDOMEN: Soft, open incision with wound VAC. Examination of lower extremities shows edema 1+ upper and lower extremities. MANAGER CODING exam cannot be performed. LABS: Labs show sodium 130, potassium 3.5, chloride is 94, CO2 of 13, BUN 49, creatinine 3.7, calcium 5.2. ASSESSMENT: 1. Acute kidney injury scheme acute tubular necrosis, severely oliguric. The patient will likely need renal replacement therapy over the next 24 to 48 hours. However, given significant hemodynamic instability and hypotension, he may not be able to tolerate renal replacement therapy. We will continue to reassess on a daily basis. 2. Severe metabolic acidosis secondary to ongoing hypotension, cardiac arrest, sepsis and gastrointestinal fluid loss, maintained on IV bicarb, currently somewhat improved. 3. Hypokalemia, will replace cautiously as patient does not have any significant urine output. 4. Status post cardiac arrest. 5. Postoperative day 1 for exploratory laparotomy, small-bowel resection for incarcerated hernia. PLAN: Increase bicarb drip to 300 mL an hour. Overall prognosis is guarded. Will reassess on a daily basis regarding need for renal replacement therapy. Patient will not be able to tolerate renal replacement therapy given his significant hypotension, we will consider SLED procedure when indicated. MMODL / IJN: [id number] /
[2019-10-20] MEDS: EPINEPHrine 16 MG in DEXTROSE 5% IN WATER 250 ML IV SCH ×4 (12:03→14:07)
[2019-10-20] MEDS ORDERED: INSULIN DETEMIR (LEVEMIR) 100 UNIT/ML SYR SQ STA (12:14)
--- NOTE | 2019-10-20 12:57 | PN ---
PROGRESS NOTE This is an 78-year-old patient who presented to hospital with syncope and was taken for laparotomy and had a cardiac arrest after being in induced. He was resuscitated, currently on multiple pressors in spite of which he remains in hypotensive. He is having multiple cardiac arrhythmias, seems to be in sinus with lot of PACs, PVCs and at times also has junctional rhythm. On exam, heart rate is 61 beats per minute, blood pressure is 91/60, respiratory rate is 18. Chest exam reveals diminished air entry at the bases. Heart exam reveals first and second heart sounds. No gallop. Abdomen is status post laparotomy. The abdomen is open. Examination of the extremities reveals mild edema. LABS: Show that the hemoglobin is 14.7, potassium is 4.7, BUN is 49, creatinine is 3.7. AST, ALT are elevated suggestive of hypoxic liver injury. INR is elevated at 3.7, suggestive of coagulopathy. The patient was on Eliquis prior to coming in. ASSESSMENT: Status post cardiac arrest, hypotension with cardiogenic shock with multiorgan failure. PLAN: Patient's prognosis is guarded. No further cardiac intervention. We will see the patient on an as-needed basis at this time. MMODL / IJN: [id number] /
[2019-10-20 13:20] LABS: Glucose,Whole Blood 406 mg/dL (75-99)
--- NOTE | 2019-10-20 13:46 | P.CONS ---
History of Present Illness - Reason for Consult Consult date: 10/20/19 Sepsis - History of Present Illness This is an 78-year-old adult with past history of kidney stones, hernias, PAD, colon cancer, AICD, admitted through the emergency room secondary to 5 episodes of syncope and 2 falling episodes for the past 2 days. He has been ill with intractable vomiting, diminished appetite, for the past 2 days. Patient has no diarrhea, however he has no output in his ostomy bag. He has angioplasty in the right lower extremity done by another vascular surgeon at [facility] of last week. CAT scan of the abdomen and pelvis revealed mild abdominal ascites although liver contour appears smooth there are right lower quadrant varices. Underlying cirrhosis or venous obstruction is possible. Small bowel containing right inguinal hernia. Correlate for physical exam. Mild fat stranding around the right lower quadrant bowel loops and pelvic bowel loops likely relates to mesenteric congestion and ascites rather than inflammatory infectious etiology. Right renal calculi and cholelithiasis, trace pericardial effusion. Patient was seen in consultation by Dr. Joe. Eliquis was placed on hold. When patient was reassessed the following morning, patient had continued groin discomfort including abdominal pain. Patient went to the OR emergently and found to have small bowel necrosis, internal hernia with small bowel obstruction from [facility] hernia and sepsis. Exploratory laparotomy with segmental small bowel resection was done. Shortly after induction of anesthesia , patient became hypotensive and had significant mottling of the extremities. Pulses were lost and ACLS was initiated. Patient was found to be and PEA and underwent 12 minutes of CPR. Patient was not close at the time and wound VAC placed as there was concern for perfusion of the bowel and patient may require a second procedure tomorrow. Patient was then admitted into intensive care unit remained intubated and on mechanical ventilation with tidal volume 450, FiO2 40, PEEP 5. He has on vasopressor support with epinephrine and norepinephrine. Patient has had significant drainage from his wound VAC. Urine output has been 0 for 8 hours followed by 5 mL for 1 hour and 15 mL at the time of this evaluation. Patient is status post a total of 8 L of IV fluids over the past 12 hours. 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 Patient is currently on a bicarb drip for severe metabolic acidosis with lactic acidosis and worsening renal function and anuria, consult added for nephrology. Patient is also seen and followed by cardiology. Echocardiogram reveals EF of 35-40%, mild aortic valve sclerosis, mild aortic regurgitation, trace to mild mitral regurgitation, mild tricuspid regurgitation, mild pulmonary regurgitation, no pericardial effusion. EEG was normal. Carotid ultrasound showed mild plaquing with no significant hemodynamically significant stenosis on either carotid artery system. Patient's nephew Mani is at the bedside and all questions have been answered. 10/20: Patient's temperature through the night has been on the lower side and down to 94.8, blood pressure low and currently on vasopressors. He is on IV Solu-Cortef drip, insulin drip was started due to hyperglycemia. Patient remains intubated and on mechanical ventilation. He has had no urine output and has been sodium bicarb drip. Repeat chest x-ray reveals interval development of large left pleural effusion greater than 50%. Enteric tube is cephalad and position should be advanced. Patient seen and followed by Dr. Du. Possible need for hemodialysis noted. Repeat blood work reveals WBC 29.5 which is improving from yesterday's peak of 44, platelet counts are down to 78, hemoglobin 14.7, INR 3.7, BUN 49 creatinine 3.71, CO2 13, sodium 130, potassium 3.5, chloride 94. Lactic acid 21, total bilirubin 1.6, AST 9018, ALT 3708, alkaline phosphatase 25, lipase 383. Patient is status post transfusion of 4 units of fresh frozen plasma done yesterday. CODE STATUS was changed during the night to no code with vasopressors and continue current treatment. Patient has dusky extremities. He is currently on Zosyn and urine culture and blood culture in progress. Patient's next of kin, sister, is on her way from the airport. Review of Systems ROS unobtainable: due to endotracheal tube Past Medical History Past Medical History: Cancer, Hyperlipidemia, Hypertension, Prostate Disorder Additional Past Medical History / Comment(s): HX COLON & SKIN CANCER , HAS COL OSTOMY- STATES NO RECTUM., ARRYTHMIA, AICD-ST.JINNY, GOUT, HX KIDNEY STONES., HAS GALL STONES., STATES 3 ABDOMINAL HERNIA'S & UNABLE TO HAVE SURGERY., WEARS SUPPORT STOCKINGS SINCE VEIN SURGERY., HX OF CONCUSSION WITH LOSS OF CONSCIOUSNESS, STATES HX OF PARALIZED FROM NECK DOWN AND THIS RESOLVED., HAS STIFF NECK AND BACK PAIN. , MACULAR DEGENERATION., BPH. History of Any Multi-Drug Resistant Organisms: None Reported Past Surgical History: Bowel Resection, Heart Catheterization With Stent, Hernia Repair, Orthopedic Surgery Additional Past Surgical History / Comment(s): stent x1, colostomy, rt wrist carpal tunnel, Kidney stones removed ., Left side kidney tube Past Anesthesia/Blood Transfusion Reactions: No Reported Reaction Date of Last Stent Placement:: unknown Type of Cardiac Device: AICD Device Placement Date:: st jinny unknown Past Psychological History: No Psychological Hx Reported Smoking Status: Former smoker Past Alcohol Use History: Rare Additional Past Alcohol Use History / Comment(s): QUIT SMOKING 1977, SMOKED 3 PACKS /DAY., SMOKED APPROX. 20 YEARS. Past Drug Use History: None Reported - Past Family History Mother Family Medical History: No Reported History Father Family Medical History: Congestive Heart Failure (CHF) Sister(s) Family Medical History: Unable to Obtain Additional Family Medical History / Comment(s): No no signs no daughters Brother(s) Family Medical History: Unable to Obtain Medications and Allergies Home Medications Medication Instructions Recorded Confirmed Type Dutasteride [Avodart] 0.5 mg PO DAILY 01/10/14 10/18/19 History Famotidine [Pepcid] 20 mg PO BID 01/10/14 10/18/19 History Simvastatin [Zocor] 20 mg PO HS 01/10/14 10/18/19 History Tamsulosin [Flomax] 0.4 mg PO DAILY 01/10/14 10/18/19 History Cholecalciferol (Vitamin D3) 2,000 unit PO BID 09/30/18 10/18/19 History [Vitamin D3] Febuxostat [Uloric] 40 mg PO DAILY 09/30/18 10/18/19 History Magnesium Oxide [Mag-Ox] 400 mg PO BID 09/30/18 10/18/19 History Sotalol [Betapace] 40 mg PO BID 09/30/18 10/18/19 History Fenofibrate 54 mg PO DAILY 12/10/18 10/18/19 History Ferrous Sulfate [Feosol] 325 mg PO BID 12/10/18 10/18/19 History Potassium Chloride [Klor-Con 20] 20 meq PO QAM 12/10/18 10/18/19 History Potassium Chloride [Klor-Con 20] 40 meq PO HS 12/10/18 10/18/19 History Apixaban [Eliquis] 2.5 mg PO BID 10/18/19 10/18/19 History Furosemide [Lasix] 40 mg PO DAILY 10/18/19 10/18/19 History Multivit-Min/FA/Lycopen/Lutein 1 tab PO DAILY 10/18/19 10/18/19 History [Centrum Silver Men Tablet] methylPREDNISolone Dose Pack See Taper PO DIRECTED 10/18/19 10/18/19 History [Medrol Dose Pack] Allergies Allergy/AdvReac Type Severity Reaction Status Date / Time No Known Allergies Allergy Verified 10/18/19 16:17 Physical Exam Vitals: Vital Signs Temp Pulse Resp BP Pulse Ox 10/20/19 13:15 79 23 75/47 95 10/20/19 13:00 78 23 80/56 93 L 10/20/19 12:45 73 21 97/56 92 L 10/20/19 12:30 78 24 96/66 92 L 10/20/19 12:19 81 10/20/19 12:16 20 10/20/19 12:15 73 20 100/90 94 L 10/20/19 12:00 96.8 F L 72 20 106/29 93 L 10/20/19 11:45 74 20 116/70 93 L 10/20/19 11:30 80 20 110/55 92 L 10/20/19 11:15 67 20 99/63 91 L 10/20/19 11:00 71 20 91/60 91 L 10/20/19 10:45 76 20 100/57 91 L 10/20/19 10:30 80 20 95/64 92 L 10/20/19 10:15 67 20 80/60 91 L 10/20/19 10:00 71 20 91/68 90 L 10/20/19 09:45 72 20 96/66 91 L 10/20/19 09:30 96 20 76/48 91 L 10/20/19 09:18 81 10/20/19 09:15 84 20 103/77 89 L 10/20/19 09:00 117 H 20 65/43 95 10/20/19 08:45 116 H 20 78/64 90 L 10/20/19 08:30 120 H 20 101/50 90 L 10/20/19 08:24 120 H 10/20/19 08:15 120 H 20 90/72 90 L 10/20/19 08:00 97.3 F L 117 H 20 75/56 90 L 10/20/19 07:45 78 20 75/56 10/20/19 07:30 81 20 94/50 10/20/19 07:15 79 21 84/50 10/20/19 07:00 80 20 90/54 90 L 10/20/19 06:45 73 21 90/57 92 L 10/20/19 06:30 82 21 66/44 94 L 10/20/19 06:15 87 20 70/46 93 L 10/20/19 06:00 74 21 60/40 92 L 10/20/19 05:45 83 21 66/43 92 L 10/20/19 05:30 82 21 70/44 90 L 10/20/19 05:15 89 20 76/48 95 10/20/19 05:00 66 20 73/56 92 L 10/20/19 04:45 89 20 80/49 92 L 10/20/19 04:30 66 21 76/48 95 10/20/19 04:15 87 20 70/48 93 L 10/20/19 04:00 99.5 F 75 20 65/49 92 L 10/20/19 03:47 67 10/20/19 03:45 98 20 68/44 95 10/20/19 03:36 75 10/20/19 03:30 70 20 64/44 96 10/20/19 03:15 88 21 65/46 97 10/20/19 03:00 70 21 77/45 95 10/20/19 02:45 68 20 65/55 97 10/20/19 02:30 80 21 66/52 96 10/20/19 02:15 81 21 56/46 96 10/20/19 02:00 83 20 62/42 94 L 10/20/19 01:45 90 20 54/43 95 10/20/19 01:30 85 22 68/38 93 L 10/20/19 01:15 77 21 61/43 93 L 10/20/19 01:00 74 20 62/35 95 10/20/19 00:45 69 21 69/32 96 10/20/19 00:30 84 23 66/55 94 L 10/20/19 00:20 78 23 104/82 95 10/20/19 00:15 85 24 104/82 95 10/20/19 00:00 99.9 F H 87 26 H 64/35 93 L 10/19/19 23:57 76 10/19/19 23:45 93 25 H 75/48 95 10/19/19 23:30 88 25 H 85/74 94 L 10/19/19 23:15 90 24 78/61 94 L 10/19/19 23:00 89 27 H 59/45 93 L 10/19/19 22:45 80 32 H 97/37 10/19/19 22:30 89 32 H 10/19/19 22:15 92 31 H 94/79 10/19/19 22:00 87 35 H 10/19/19 21:45 92 34 H 81/67 10/19/19 21:30 90 38 H 10/19/19 21:15 103 H 37 H 97/59 94 L 10/19/19 21:00 98 37 H 93 L 10/19/19 20:45 101 H 37 H 85/74 97 10/19/19 20:30 86 38 H 95 10/19/19 20:15 101 H 36 H 98/51 95 10/19/19 20:00 98.4 F 81 38 H 94 L 10/19/19 19:56 101 H 10/19/19 19:45 95 10/19/19 19:00 86 34 H 105/56 97 10/19/19 18:45 75 35 H 105/56 95 10/19/19 18:30 96.8 F L 114 H 35 H 105/56 95 10/19/19 18:15 82 34 H 112/83 94 L 10/19/19 18:00 110 H 35 H 103/54 94 L 10/19/19 17:45 79 33 H 103/54 93 L 10/19/19 17:30 73 34 H 83/52 94 L 10/19/19 17:15 104 H 32 H 83/52 93 L 10/19/19 17:00 113 H 30 H 86/72 94 L 10/19/19 16:45 95.7 F L 90 29 H 86/72 94 L 10/19/19 16:30 101 H 33 H 95 10/19/19 16:15 124 H 32 H 105/53 95 10/19/19 16:05 62 10/19/19 16:00 35.1 F L 60 25 H 111/50 94 L 10/19/19 15:45 79 28 H 111/50 93 L 10/19/19 15:35 105 H 10/19/19 15:30 101 H 28 H 94/69 88 L 10/19/19 15:15 121 H 24 94/69 88 L 10/19/19 15:00 87 28 H 91/71 90 L 10/19/19 14:51 95 F L 103 H 27 H 91/71 92 L 10/19/19 14:50 94.8 F L 80 25 H 97/80 93 L 10/19/19 14:40 98 24 125/67 89 L 10/19/19 14:30 135 H 27 H 119/59 82 L 10/19/19 14:15 94.8 F L 97 21 119/61 93 L 10/19/19 14:11 95 F L 120 H 22 90/58 92 L 10/19/19 14:01 95 F L 98 22 102/51 92 L 10/19/19 14:00 95 F L 126 H 23 65/40 92 L 10/19/19 13:58 95 F L 102 H 22 115/60 93 L 10/19/19 13:48 95 F L 105 H 26 H 80/47 10/19/19 13:45 101 H 25 H 94/49 Intake and Output 10/19/19 10/20/19 10/20/19 22:59 06:59 14:59 Intake Total 3995.598 4634.559 3632.607 Output Total 1739 460 928 Balance 2256.598 4174.559 2704.607 Intake: IV 1800 3200 2465.12 Dextrose 5% in Water 1, 600 1600 1600 000 ml @ 200 mls/hr IV . Q5H45M [facility] with Sodium Bicarb (1 Meq/ml) 150 ml Rx#:[id number] LR 600 1600 800 Sodium Chloride 0.9% 1, 600 000 ml @ 130 mls/hr IV . Q7H42M [facility] Rx#:[id number] Sodium Chloride 0.9% 1, 50 000 ml @ 50 mls/hr IV . Q20H [facility] Rx#:[id number] Sodium Chloride 0.9% 50 12.24 ml @ 0.04 UNITS/MIN 6.12 mls/hr IVPB .Q8H20M [facility] with Vasopressin 20 unit Rx#:[id number] Sodium Chloride 0.9% 50 2.88 ml @ 12 MG/HR 1.44 mls/hr IVPB .Q24H [facility] with Hydrocortisone Succinate 500 mg Rx#:[id number] Intake, IV Titration 6619.868 1621.559 1167.487 Amount Calcium Gluconate 1 gm In 100 Sodium Chloride 0.9% 100 ml @ 100 mls/hr IVPB ONCE ONE Rx#:[id number] Dextrose 5% in Water 1, 800 000 ml @ 200 mls/hr IV . Q5H45M [facility] with Sodium Bicarb (1 Meq/ml) 150 ml Rx#:[id number] EPINEPHrine 16 mg In 65.425 Dextrose 5% in Water 250 ml @ 1 MCG/KG/MIN 81.443 mls/hr IV .Q3H16M [facility] Rx# :[id number] EPINEPHrine 4 mg In 502.398 975.339 614.816 Dextrose 5% in Water 250 ml @ 0.01 MCG/KG/MIN 3. 062 mls/hr IV .Q24H [facility] Rx#:[id number] Insulin Regular 100 unit 19.695 In Sodium Chloride 0.9% 100 ml @ Per Protocol IV .Q0M [facility] Rx#:[id number] Norepinephrine 32 mg In 0.025 459.22 Sodium Chloride 0.9% 218 ml @ 0.02 MCG/KG/MIN 0. 765 mls/hr IV .Q24H [facility] Rx#:[id number] Norepinephrine 4 mg In 92.241 Sodium Chloride 0.9% 250 ml @ 0.05 MCG/KG/MIN 15. 554 mls/hr IV .[id number] [facility] Rx#:[id number] Norepinephrine 8 mg In 326.507 Sodium Chloride 0.9% 250 ml @ 0.05 MCG/KG/MIN 7. 899 mls/hr IV .Q24H [facility] Rx#:[id number] Piperacillin-Tazobactam 3 100 100 .375 gm In Sodium Chloride 0.9% 100 ml @ 25 mls/hr IVPB Q8HR [facility] Rx# :[id number] Potassium Chloride 20 meq 100 In Water For Injection 1 100ml.bag @ 50 mls/hr IVPB Q2H [facility] Rx#: [id number] Propofol 1,000 mg In 63.687 137.311 Empty Bag 1 bag @ Titrate IV .Q0M [facility] Rx#: [id number] Sodium Chloride 0.9% 50 27.54 24.48 ml @ 0.04 UNITS/MIN 6.12 mls/hr IVPB .Q8H20M [facility] with Vasopressin 20 unit Rx#:[id number] Sodium Chloride 0.9% 50 7.20 5.76 ml @ 12 MG/HR 1.44 mls/hr IVPB .Q24H [facility] with Hydrocortisone Succinate 500 mg Rx#:[id number] Blood Product 276 Ffp 24 Cpd Unit 276 [id number] Output: Chest Tube Drainage 420 Chest Tube Left Lateral 420 Chest Gastric Drainage 200 Drainage 1525 450 500 Anterior Medial Abdomen 1525 450 500 Urine 14 10 8 Other: Voiding Method Indwelling Catheter Indwelling Catheter Indwelling Catheter Weight 99 kg ABP, PAP, CO, CI - Last 8 Hours Arterial Blood Pressure 70/36 Arterial Blood Pressure 75/39 Arterial Blood Pressure 75/39 Arterial Blood Pressure 79/42 Arterial Blood Pressure 92/48 Arterial Blood Pressure 100/50 Arterial Blood Pressure 89/46 Arterial Blood Pressure 94/49 Arterial Blood Pressure 90/46 Arterial Blood Pressure 85/41 Arterial Blood Pressure 83/42 Arterial Blood Pressure 81/40 Arterial Blood Pressure 78/41 Arterial Blood Pressure 86/41 Arterial Blood Pressure 78/78 Arterial Blood Pressure 93/46 Arterial Blood Pressure 83/43 Arterial Blood Pressure 77/37 Arterial Blood Pressure 74/41 Arterial Blood Pressure 95/50 Arterial Blood Pressure 84/44 Arterial Blood Pressure 92/42 Arterial Blood Pressure 74/35 Arterial Blood Pressure 71/36 Arterial Blood Pressure 73/36 - Constitutional General appearance: obese, cooperative, no acute distress - EENT Eyes: EOMI, PERRLA, normal appearance ENT: NA/AT, normal oropharynx, oral gastric tube and oral ET Patient appears to be comfortable on ventilator. - Neck Neck: normal ROM - Respiratory Respiratory: bilateral: Coarse rhonchi - Cardiovascular Rhythm: regular Heart sounds: normal: S1, S2 Abnormal Heart Sounds: no systolic murmur, no diastolic murmur, no rub, no S3 Gallop, no S4 Gallop, no click, no other - Gastrointestinal General gastrointestinal: Patient has colostomy with no output. Open abdominal incision with wound VAC in place. Barriga catheter with no urine output - Integumentary Integumentary: decreased turgor, dusky extremities No edema - Neurologic Neurologic: Sedated on mechanical ventilation Results CBC & Chem 7: 10/20/19 05:50 10/20/19 05:50 Labs: Abnormal Lab Results - Last 24 Hours (Table) 10/19/19 10/19/19 10/19/19 Range/Units 12:40 12:53 14:29 WBC (3.8-10.6) k/uL MCV (80.0-100.0) fL Plt Count (150-450) k/uL PT (9.0-12.0) sec INR (<1.2) ABG pH (7.35-7.45) ABG pCO2 (35-45) mmHg ABG pO2 (83-108) mmHg ABG HCO3 (21-25) mmol/L ABG Total CO2 (19-24) mmol/L ABG O2 Saturation (94-97) % Sodium (137-145) mmol/L Chloride (98-107) mmol/L Carbon Dioxide (22-30) mmol/L BUN (9-20) mg/dL Creatinine (0.66-1.25) mg/dL Glucose (74-99) mg/dL POC Glucose (mg/dL) (75-99) mg/dL Plasma Lactic Acid Carl 18.3 H* (0.7-2.0) mmol/L Calcium (8.4-10.2) mg/dL Ionized Calcium Michael 3.6 L (4.5-5.3) mg/dL Phosphorus (2.5-4.5) mg/dL Total Bilirubin (0.2-1.3) mg/dL AST (17-59) U/L ALT (4-49) U/L Alkaline Phosphatase (38-126) U/L Troponin I 1.360 H* (0.000-0.034) ng/mL Total Protein (6.3-8.2) g/dL Albumin (3.5-5.0) g/dL Lipase (23-300) U/L Urine Protein (Negative) Urine Glucose (UA) (Negative) Urine Ketones (Negative) Urine Blood (Negative) Ur Leukocyte Esterase (Negative) Urine RBC (0-5) /hpf Urine WBC (0-5) /hpf Urine Mucus (None) /hpf 02/08/2610/19/19 10/19/19 Range/Units 14:29 16:07 16:28 WBC (3.8-10.6) k/uL MCV (80.0-100.0) fL Plt Count (150-450) k/uL PT (9.0-12.0) sec INR (<1.2) ABG pH 7.20 L (7.35-7.45) ABG pCO2 34 L (35-45) mmHg ABG pO2 72 L (83-108) mmHg ABG HCO3 13 L (21-25) mmol/L ABG Total CO2 14 L (19-24) mmol/L ABG O2 Saturation 90.3 L (94-97) % Sodium (137-145) mmol/L Chloride (98-107) mmol/L Carbon Dioxide (22-30) mmol/L BUN (9-20) mg/dL Creatinine (0.66-1.25) mg/dL Glucose (74-99) mg/dL POC Glucose (mg/dL) (75-99) mg/dL Plasma Lactic Acid Carl (0.7-2.0) mmol/L Calcium (8.4-10.2) mg/dL Ionized Calcium Michael (4.5-5.3) mg/dL Phosphorus 10.3 H* (2.5-4.5) mg/dL Total Bilirubin (0.2-1.3) mg/dL AST (17-59) U/L ALT (4-49) U/L Alkaline Phosphatase (38-126) U/L Troponin I (0.000-0.034) ng/mL Total Protein (6.3-8.2) g/dL Albumin (3.5-5.0) g/dL Lipase (23-300) U/L Urine Protein 1+ H (Negative) Urine Glucose (UA) 1+ H (Negative) Urine Ketones Trace H (Negative) Urine Blood Moderate H (Negative) Ur Leukocyte Esterase Trace H (Negative) Urine RBC 53 H (0-5) /hpf Urine WBC 14 H (0-5) /hpf Urine Mucus Rare H (None) /hpf 10/19/19 10/19/19 10/19/19 Range/Units 17:51 17:52 18:06 WBC 34.9 H (3.8-10.6) k/uL MCV 101.1 H (80.0-100.0) fL Plt Count 142 L (150-450) k/uL PT (9.0-12.0) sec INR (<1.2) ABG pH (7.35-7.45) ABG pCO2 (35-45) mmHg ABG pO2 (83-108) mmHg ABG HCO3 (21-25) mmol/L ABG Total CO2 (19-24) mmol/L ABG O2 Saturation (94-97) % Sodium (137-145) mmol/L Chloride (98-107) mmol/L Carbon Dioxide (22-30) mmol/L BUN (9-20) mg/dL Creatinine (0.66-1.25) mg/dL Glucose (74-99) mg/dL POC Glucose (mg/dL) 237 H (75-99) mg/dL Plasma Lactic Acid Carl 18.9 H* (0.7-2.0) mmol/L Calcium (8.4-10.2) mg/dL Ionized Calcium Michael (4.5-5.3) mg/dL Phosphorus (2.5-4.5) mg/dL Total Bilirubin (0.2-1.3) mg/dL AST (17-59) U/L ALT (4-49) U/L Alkaline Phosphatase (38-126) U/L Troponin I (0.000-0.034) ng/mL Total Protein (6.3-8.2) g/dL Albumin (3.5-5.0) g/dL Lipase (23-300) U/L Urine Protein (Negative) Urine Glucose (UA) (Negative) Urine Ketones (Negative) Urine Blood (Negative) Ur Leukocyte Esterase (Negative) Urine RBC (0-5) /hpf Urine WBC (0-5) /hpf Urine Mucus (None) /hpf 10/19/19 10/19/19 10/20/19 Range/Units 18:58 22:00 00:00 WBC (3.8-10.6) k/uL MCV (80.0-100.0) fL Plt Count (150-450) k/uL PT (9.0-12.0) sec INR (<1.2) ABG pH 7.20 L (7.35-7.45) ABG pCO2 32 L (35-45) mmHg ABG pO2 (83-108) mmHg ABG HCO3 12 L (21-25) mmol/L ABG Total CO2 13 L (19-24) mmol/L ABG O2 Saturation 93.5 L (94-97) % Sodium (137-145) mmol/L Chloride (98-107) mmol/L Carbon Dioxide (22-30) mmol/L BUN (9-20) mg/dL Creatinine (0.66-1.25) mg/dL Glucose (74-99) mg/dL POC Glucose (mg/dL) 197 H (75-99) mg/dL Plasma Lactic Acid Carl 21.2 H* (0.7-2.0) mmol/L Calcium (8.4-10.2) mg/dL Ionized Calcium Michael (4.5-5.3) mg/dL Phosphorus (2.5-4.5) mg/dL Total Bilirubin (0.2-1.3) mg/dL AST (17-59) U/L ALT (4-49) U/L Alkaline Phosphatase (38-126) U/L Troponin I (0.000-0.034) ng/mL Total Protein (6.3-8.2) g/dL Albumin (3.5-5.0) g/dL Lipase (23-300) U/L Urine Protein (Negative) Urine Glucose (UA) (Negative) Urine Ketones (Negative) Urine Blood (Negative) Ur Leukocyte Esterase (Negative) Urine RBC (0-5) /hpf Urine WBC (0-5) /hpf Urine Mucus (None) /hpf 10/20/19 10/20/19 10/20/19 Range/Units 00:40 02:30 05:24 WBC 27.0 H (3.8-10.6) k/uL MCV 105.9 H (80.0-100.0) fL Plt Count 100 L (150-450) k/uL PT (9.0-12.0) sec INR (<1.2) ABG pH 7.08 L* (7.35-7.45) ABG pCO2 (35-45) mmHg ABG pO2 73 L (83-108) mmHg ABG HCO3 13 L (21-25) mmol/L ABG Total CO2 14 L (19-24) mmol/L ABG O2 Saturation 89.8 L (94-97) % Sodium (137-145) mmol/L Chloride (98-107) mmol/L Carbon Dioxide (22-30) mmol/L BUN (9-20) mg/dL Creatinine (0.66-1.25) mg/dL Glucose (74-99) mg/dL POC Glucose (mg/dL) (75-99) mg/dL Plasma Lactic Acid Carl 21.2 H* (0.7-2.0) mmol/L Calcium (8.4-10.2) mg/dL Ionized Calcium Michael (4.5-5.3) mg/dL Phosphorus (2.5-4.5) mg/dL Total Bilirubin (0.2-1.3) mg/dL AST (17-59) U/L ALT (4-49) U/L Alkaline Phosphatase (38-126) U/L Troponin I (0.000-0.034) ng/mL Total Protein (6.3-8.2) g/dL Albumin (3.5-5.0) g/dL Lipase (23-300) U/L Urine Protein (Negative) Urine Glucose (UA) (Negative) Urine Ketones (Negative) Urine Blood (Negative) Ur Leukocyte Esterase (Negative) Urine RBC (0-5) /hpf Urine WBC (0-5) /hpf Urine Mucus (None) /hpf 10/20/19 10/20/19 10/20/19 Range/Units 05:50 05:50 05:50 WBC 29.5 H (3.8-10.6) k/uL MCV 105.5 H (80.0-100.0) fL Plt Count 78 L (150-450) k/uL PT 36.9 H (9.0-12.0) sec INR 3.7 H (<1.2) ABG pH (7.35-7.45) ABG pCO2 (35-45) mmHg ABG pO2 (83-108) mmHg ABG HCO3 (21-25) mmol/L ABG Total CO2 (19-24) mmol/L ABG O2 Saturation (94-97) % Sodium 130 L (137-145) mmol/L Chloride 94 L (98-107) mmol/L Carbon Dioxide 13 L (22-30) mmol/L BUN 49 H (9-20) mg/dL Creatinine 3.71 H (0.66-1.25) mg/dL Glucose 356 H (74-99) mg/dL POC Glucose (mg/dL) (75-99) mg/dL Plasma Lactic Acid Carl (0.7-2.0) mmol/L Calcium 5.2 L* (8.4-10.2) mg/dL Ionized Calcium Michael (4.5-5.3) mg/dL Phosphorus (2.5-4.5) mg/dL Total Bilirubin 1.6 H (0.2-1.3) mg/dL AST 9018 H (17-59) U/L ALT 3708 H (4-49) U/L Alkaline Phosphatase 25 L (38-126) U/L Troponin I (0.000-0.034) ng/mL Total Protein 2.1 L (6.3-8.2) g/dL Albumin 1.1 L (3.5-5.0) g/dL Lipase 383 H (23-300) U/L Urine Protein (Negative) Urine Glucose (UA) (Negative) Urine Ketones (Negative) Urine Blood (Negative) Ur Leukocyte Esterase (Negative) Urine RBC (0-5) /hpf Urine WBC (0-5) /hpf Urine Mucus (None) /hpf 10/20/19 10/20/19 10/20/19 Range/Units 05:52 09:44 09:45 WBC (3.8-10.6) k/uL MCV (80.0-100.0) fL Plt Count (150-450) k/uL PT (9.0-12.0) sec INR (<1.2) ABG pH (7.35-7.45) ABG pCO2 (35-45) mmHg ABG pO2 (83-108) mmHg ABG HCO3 (21-25) mmol/L ABG Total CO2 (19-24) mmol/L ABG O2 Saturation (94-97) % Sodium (137-145) mmol/L Chloride (98-107) mmol/L Carbon Dioxide (22-30) mmol/L BUN (9-20) mg/dL Creatinine (0.66-1.25) mg/dL Glucose (74-99) mg/dL POC Glucose (mg/dL) 344 H 338 H (75-99) mg/dL Plasma Lactic Acid Carl (0.7-2.0) mmol/L Calcium (8.4-10.2) mg/dL Ionized Calcium Michael 3.1 L* (4.5-5.3) mg/dL Phosphorus (2.5-4.5) mg/dL Total Bilirubin (0.2-1.3) mg/dL AST (17-59) U/L ALT (4-49) U/L Alkaline Phosphatase (38-126) U/L Troponin I (0.000-0.034) ng/mL Total Protein (6.3-8.2) g/dL Albumin (3.5-5.0) g/dL Lipase (23-300) U/L Urine Protein (Negative) Urine Glucose (UA) (Negative) Urine Ketones (Negative) Urine Blood (Negative) Ur Leukocyte Esterase (Negative) Urine RBC (0-5) /hpf Urine WBC (0-5) /hpf Urine Mucus (None) /hpf 10/20/19 10/20/19 10/20/19 Range/Units 11:02 11:03 11:51 WBC (3.8-10.6) k/uL MCV (80.0-100.0) fL Plt Count (150-450) k/uL PT (9.0-12.0) sec INR (<1.2) ABG pH (7.35-7.45) ABG pCO2 (35-45) mmHg ABG pO2 (83-108) mmHg ABG HCO3 (21-25) mmol/L ABG Total CO2 (19-24) mmol/L ABG O2 Saturation (94-97) % Sodium (137-145) mmol/L Chloride (98-107) mmol/L Carbon Dioxide (22-30) mmol/L BUN (9-20) mg/dL Creatinine (0.66-1.25) mg/dL Glucose (74-99) mg/dL POC Glucose (mg/dL) 440 H 439 H (75-99) mg/dL Plasma Lactic Acid Carl 20.2 H* (0.7-2.0) mmol/L Calcium (8.4-10.2) mg/dL Ionized Calcium Michael (4.5-5.3) mg/dL Phosphorus (2.5-4.5) mg/dL Total Bilirubin (0.2-1.3) mg/dL AST (17-59) U/L ALT (4-49) U/L Alkaline Phosphatase (38-126) U/L Troponin I (0.000-0.034) ng/mL Total Protein (6.3-8.2) g/dL Albumin (3.5-5.0) g/dL Lipase (23-300) U/L Urine Protein (Negative) Urine Glucose (UA) (Negative) Urine Ketones (Negative) Urine Blood (Negative) Ur Leukocyte Esterase (Negative) Urine RBC (0-5) /hpf Urine WBC (0-5) /hpf Urine Mucus (None) /hpf 10/20/19 Range/Units 13:09 WBC (3.8-10.6) k/uL MCV (80.0-100.0) fL Plt Count (150-450) k/uL PT (9.0-12.0) sec INR (<1.2) ABG pH (7.35-7.45) ABG pCO2 (35-45) mmHg ABG pO2 (83-108) mmHg ABG HCO3 (21-25) mmol/L ABG Total CO2 (19-24) mmol/L ABG O2 Saturation (94-97) % Sodium (137-145) mmol/L Chloride (98-107) mmol/L Carbon Dioxide (22-30) mmol/L BUN (9-20) mg/dL Creatinine (0.66-1.25) mg/dL Glucose (74-99) mg/dL POC Glucose (mg/dL) 406 H (75-99) mg/dL Plasma Lactic Acid Carl (0.7-2.0) mmol/L Calcium (8.4-10.2) mg/dL Ionized Calcium Michael (4.5-5.3) mg/dL Phosphorus (2.5-4.5) mg/dL Total Bilirubin (0.2-1.3) mg/dL AST (17-59) U/L ALT (4-49) U/L Alkaline Phosphatase (38-126) U/L Troponin I (0.000-0.034) ng/mL Total Protein (6.3-8.2) g/dL Albumin (3.5-5.0) g/dL Lipase (23-300) U/L Urine Protein (Negative) Urine Glucose (UA) (Negative) Urine Ketones (Negative) Urine Blood (Negative) Ur Leukocyte Esterase (Negative) Urine RBC (0-5) /hpf Urine WBC (0-5) /hpf Urine Mucus (None) /hpf Microbiology - Last 24 Hours (Table) 10/19/19 10:57 Blood Culture - Preliminary Blood No Growth after 24 hours 10/19/19 16:28 Urine Culture - Preliminary Urine,Voided Assessment and Plan Plan: This is an 78-year-old male who presented to the hospital due to multiple syncopal episodes secondary to acute abdomen with incarcerated femoral hernia and small bowel obstruction status post exploratory laparotomy and small bowel resection, postop day #1. Patient also has sepsis, septic shock and multiorgan failure. 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 Patient is currently on Zosyn and antibiotics will be addressed. Urine and blood cultures in progress. Prognosis is poor. Further recommendations as patient progresses. The above dictated assessment and findings were discussed with Dr. Ramos. The impression and plan of care have been directed as dictated. Bina Donis nurse practitioner acting as scribe for Dr. Ramos.
[2019-10-20 14:17] LABS: Glucose,Whole Blood 226 mg/dL (75-99)
[2019-10-20 14:17] LABS: Glucose,Whole Blood 496 mg/dL (75-99)
[2019-10-20 15:28] LABS: Glucose,Whole Blood 523 mg/dL (75-99)
[2019-10-20 15:37] LABS: Glucose,Whole Blood 243 mg/dL (75-99)
[2019-10-20 15:58] VITALS: TEMP 95.9
[2019-10-20 17:01] VITALS: BP 42/27
[2019-10-20 17:42] VITALS: PULSE 92; RESP 7
[2019-10-20] MEDS ORDERED: PIPERACILLIN-TAZOBACTAM 3.375 GM in SODIUM CHLORIDE 0.9% 100 ML IVPB SCH (21:00)
[2019-10-21] MEDS ORDERED: INSULIN DETEMIR (LEVEMIR) 100 UNIT/ML SYR SQ SCH (07:00)
--- NOTE | 2019-10-21 12:50 | P.DS ---
Providers Date of admission: 10/18/19 15:34 Expected date of discharge: 10/20/19 Attending physician: Bessy Hutchinson Consults: 10/18/19 13:10 Consult Physician Routine Consulting Provider: [place] Roger Consult Reason/Comments: syncope Do you want consulting provider notified?: Yes 10/18/19 13:11 Consult Physician Routine Consulting Provider: Reyes Cramer Consult Reason/Comments: syncope Do you want consulting provider notified?: Yes 10/18/19 15:06 Consult Physician Routine Consulting Provider: Malgorzata Joe Consult Reason/Comments: inguinal hernia poss small bowel incarceration Do you want consulting provider notified?: Yes 10/18/19 17:17 Consult Physician Routine Consulting Provider: Boston Roger Consult Reason/Comments: surgery tomorrow morning. Small bowel obstruction Do you want consulting provider notified?: Yes 10/19/19 01:28 Consult Physician Routine Consulting Provider: Momo Urias Consult Reason/Comments: ICU management Do you want consulting provider notified?: Already Contacted 10/19/19 12:11 Consult Physician Routine Consulting Provider: Larissa Du Consult Reason/Comments: KATE Do you want consulting provider notified?: Yes 10/20/19 13:05 Consult Physician Routine Consulting Provider: Shey Ramos Consult Reason/Comments: sepsis Do you want consulting provider notified?: Yes Primary care physician: Karli Borja Hospital Course: This is an 78-year-old pleasant gentleman patient of Dr. Borja. He has underlying history of kidney stones, hernias, PAD, colon cancer, AICD, admitted through the emergency room secondary to 5episodes of syncope and 2 falling episodes for the past 2 days. He had 3 episodes today of syncope, patient has been ill with intractable vomiting, diminished appetite, for the past 2 days. Patient has no diarrhea, however he has no output in his ostomy bag, patient does not have any abdominal pain, patient denies any fever no chills, he sees Dr. castillo cardiology, with no medication changes, Dr. Borja within the past 30 days, without any medication changes. Patient has premonition that he would pass out on 2 occasions only, patient denies any concussion, and no melena hematochezia, patient denies any chest pain no palpitations during this event, patient denies any sick contacts, patient denies any dysuria, he had what is suspected to be an angioplasty in the right lower extremity done by another vascular surgeon in [facility], this was done last 5 days prior to admission. Patient has no claudication at this time, however he is Cold feet, no lesions Extremities, and good dorsalis pedis pulses however they're both diminished. Patient does not have any alcohol dependency, his last beer was 2 weeks ago, no dysuria no back pain no hematuria, known history of large kidney stones with lithotripsy in the past. Patient denies any seizure episode, and no motor deficits upon recovery. In the emergency room patient was very hemoconcentrated, with WBC count of, 25.3, hemoglobin 20.0, creatinine 1.95 from a previous of 1.45 in 2013, BUN of 50, sodium 133, potassium 4.4, glucose 192, INR 1.1, urinalysis was negative for pyuria, however he's got 13 hyaline casts, specific gravity of 1.0-1, with some proteinuria noted. No transaminitis was noted, no lipase available for review, patient was admitted secondary to dehydration, and recurrent syncope, with consults to cardiology, EEG of the brain to be done, carotid Dopplers, echocardiogram, need pacemaker interrogation if needed consult to neurology as well. 10/19: CAT scan of the abdomen and pelvis revealed mild abdominal ascites although liver contour appears smooth there are right lower quadrant varices. Underlying cirrhosis or venous obstruction is possible. Small bowel containing right inguinal hernia. Correlate for physical exam. Mild fat stranding around the right lower quadrant bowel loops and pelvic bowel loops likely relates to mesenteric congestion and ascites rather than inflammatory infectious etiology. Right renal calculi and cholelithiasis, trace pericardial effusion. Patient was seen in consultation by Dr. Joe. Eliquis was placed on hold. When patient was reassessed the following morning, patient had continued groin discomfort including abdominal pain. Patient went to the OR emergently and found to have small bowel necrosis, internal hernia with small bowel obstruction from [facility] hernia and sepsis. Exploratory laparotomy with segmental small bowel resection was done. Shortly after induction of anesthesia, patient became hypotensive and had significant mottling of the extremities. Pulses were lost and ACLS was initiated. Patient was found to be and PEA and underwent 12 minutes of CPR. Patient was not close at the time and wound VAC placed as there was concern for perfusion of the bowel and patient may require a second procedure tomorrow. Patient was then admitted into intensive care unit remained intubated and on mechanical ventilation with tidal volume 450, FiO2 40, PEEP 5. He has on vasopressor support with epinephrine and norepinephrine. Patient has had significant drainage from his wound VAC. Urine output has been 0 for 8 hours followed by 5 mL for 1 hour and 15 mL at the time of this evaluation. Patient is status post a total of 8 L of IV fluids over the past 12 hours. 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 Patient is currently on a bicarb drip for severe metabolic acidosis with lactic acidosis and worsening renal function and anuria, consult added for nephrology. Patient is also seen and followed by cardiology. Echocardiogram reveals EF of 35-40%, mild aortic valve sclerosis, mild aortic regurgitation, trace to mild mitral regurgitation, mild tricuspid regurgitation, mild pulmonary regurgitation, no pericardial effusion. EEG was normal. Carotid ultrasound showed mild plaquing with no significant hemodynamically significant stenosis on either carotid artery system. Patient's nephew Mani is at the bedside and all questions have been answered. 10/20: Patient's temperature through the night has been on the lower side and down to 94.8, blood pressure low. Patient remains intubated and on mechanical ventilation. Repeat chest x-ray reveals interval development of large left pleural effusion greater than 50%. Enteric tube is cephalad and position should be advanced. Patient seen and followed by Dr. Du. Possible need for hemodialysis noted. Repeat blood work reveals WBC 29.5 which is improving from yesterday's peak of 44, platelet counts are down to 78, hemoglobin 14.7, INR 3.7, BUN 49 creatinine 3.71, CO2 13, sodium 130, potassium 3.5, chloride 94. Lactic acid 21, total bilirubin 1.6, AST 9018, ALT 3708, alkaline phosphatase 25, lipase 383. Patient is status post transfusion of 4 units of fresh frozen plasma done yesterday. CODE STATUS was changed during the night to no code with vasopressors and continue current treatment. Patient on October 20. Please see nursing documentation for details. Discharge diagnoses: 1. Recurrent episodes of multiple syncope most likely secondary to an acute abdomen. 2. Incarcerated femoral hernia and small bowel obstruction status post exploratory laparotomy and small bowel resection 3. Acute hypoxic respiratory failure intubated and on mechanical ventilation. 4. Severe metabolic acidosis and lactic acidosis. 5. Anuria and acute kidney injury. 6. Acute blood loss from surgical site. 7. Leukocytosis and sepsis secondary to small bowel obstruction, abdominal s epsis, severe sepsis with septic shock and multiorgan failure. 8. Shock liver with elevated liver function tests and INR. 9. Cardiopulmonary arrest requiring CPR for 12 minutes with PEA and possible non-ST elevated myocardial infarction. 10. Hemoconcentration with elevated hematocrit, polycythemia possibly possibly secondary to volume contraction. 11. Pacemaker placement with AICD most likely secondary to sick sinus syndrome, stable. 12. Patient may have a history of atrial fibrillation, patient denies. Patient has been on eliquis unclear reason. 13. Chronic kidney disease stage III. 14. Perihepatic ascites secondary to acute abdomen. 15. Known history of colon cancer diagnosed 2016, with 11 surgeries related to complications including obstruction, last major surgery was in 2016 16. PAD, with recent angioplasty done on the right leg 17. History of nephrolithiasis, stable. Patient has seen Dr. Jordan with prior lithotripsy Impression and plan of care have been directed as dictated by the signing physician. Bina Donis nurse practitioner acting as scribe for signing physician. Patient Condition at Discharge: Undetermined Plan - Discharge Summary Discharge Rx Participant: No New Discharge Prescriptions: No Action Simvastatin [Zocor] 20 mg PO HS Dutasteride [Avodart] 0.5 mg PO DAILY Famotidine [Pepcid] 20 mg PO BID Tamsulosin [Flomax] 0.4 mg PO DAILY Sotalol [Betapace] 40 mg PO BID Magnesium Oxide [Mag-Ox] 400 mg PO BID Cholecalciferol (Vitamin D3) [Vitamin D3] 2,000 unit PO BID Febuxostat [Uloric] 40 mg PO DAILY Potassium Chloride [Klor-Con 20] 20 meq PO QAM Potassium Chloride [Klor-Con 20] 40 meq PO HS Fenofibrate 54 mg PO DAILY Ferrous Sulfate [Feosol] 325 mg PO BID Apixaban [Eliquis] 2.5 mg PO BID Furosemide [Lasix] 40 mg PO DAILY Multivit-Min/FA/Lycopen/Lutein [Centrum Silver Men Tablet] 1 tab PO DAILY methylPREDNISolone Dose Pack [Medrol Dose Pack] See Taper PO DIRECTED Discharge Medication List Dutasteride [Avodart] 0.5 mg PO DAILY 01/10/14 [History] Famotidine [Pepcid] 20 mg PO BID 01/10/14 [History] Simvastatin [Zocor] 20 mg PO HS 01/10/14 [History] Tamsulosin [Flomax] 0.4 mg PO DAILY 01/10/14 [History] Cholecalciferol (Vitamin D3) [Vitamin D3] 2,000 unit PO BID 09/30/18 [History] Febuxostat [Uloric] 40 mg PO DAILY 09/30/18 [History] Magnesium Oxide [Mag-Ox] 400 mg PO BID 09/30/18 [History] Sotalol [Betapace] 40 mg PO BID 09/30/18 [History] Fenofibrate 54 mg PO DAILY 12/10/18 [History] Ferrous Sulfate [Feosol] 325 mg PO BID 12/10/18 [History] Potassium Chloride [Klor-Con 20] 20 meq PO [facility] 12/10/18 [History] Potassium Chloride [Klor-Con 20] 40 meq PO HS 12/10/18 [History] Apixaban [Eliquis] 2.5 mg PO BID 10/18/19 [History] Furosemide [Lasix] 40 mg PO DAILY 10/18/19 [History] Multivit-Min/FA/Lycopen/Lutein [Centrum Silver Men Tablet] 1 tab PO DAILY 10/18/19 [History] methylPREDNISolone Dose Pack [Medrol Dose Pack] See Taper PO DIRECTED 10/18/19 [History] Follow up Appointment(s)/Referral(s): Karli Borja MD [Primary Care Provider] - 1-2 days Discharge Disposition: - Preliminary Cause of Preliminary Cause of : Incarcerated femoral hernia, SBO, septic shock, multiorgan failure
--- NOTE | 2019-10-24 08:45 | CDI ---
Documentation Clarification Form Date: 10/24/19 From: Alexa Harris Phone: If you have a question about this query, please contact Kristina Goncalves, Sales Recruiter at [phone] between 8am and 5pm. Admit Date: 10/18/19 Discharge Date: 10/20/19 Patient Name: Moustapha Enriquez Visit Number: [id number] ATTENTION: The Clinical Documentation Specialists (CDI) and [facility] Coding Staff appreciate your assistance in clarifying documentation. Please respond to the clarification below the line at the bottom and electronically sign. The CDI & [facility] Coding staff will review the response and follow-up if needed. Please note: Queries are made part of the Legal Health Record. If you have any questions, please contact the author of this message via ITS. Dear Dr. Bessy Hutchinson, Your patient has the documented diagnosis of acute blood loss on surgical site in your notes dated 10/19, 10/20 and DS. A relationship between diagnoses cannot be assumed unless documented as such by the attending physician. In order to capture the severity of condition; please document the relationship, if any, between these diagnoses. History/Risk Factors: sepsis w septic shock, AMI, cardiac arrest, acute hypoxic respiratory failure, femoral hernia w necrosis and obstruction Clinical Indicators: 50 cc blood loss per anes record, Hgb-23.2-14.7, Hct-68.4-46.5 Treatment: CBC every 6 hours, transfuse if Hgb less than 7.5 Please clarify and document your clinical opinion in the progress notes and discharge summary if any relationship (due to, caused by, secondary to) exists between these two diagnoses. Please include clinical findings supporting your diagnosis. Postop acute blood loss (hemorrhage/bleeding) due to procedure Acute blood loss anemia Other explanation of clinical findings (please specify) Unable to determine (no explanation for clinical findings) acute blood loss anemia, not postprocedural hemorrhage. suspect hemolytic anemia seconary to severe sepsis and septic shock MTDD
[2019-10-26 07:30] LABS: ABG PH 7.08 (7.35-7.45)
== END 2019-10-20 18:55 | disposition expired | DRG 853 ==
LOC: EC 11:08 → 4SSUR 15:34 → 2SICU 10-19 01:01
PROVIDERS: ADMIT Family Medicine; ATTEND Family Medicine
PROC: 5A1945Z Respiratory Ventilation, 24-96 Consecutive Hours (ICD-10-PCS; 2019-10-19)
PROC: 02HV33Z Insertion of Infusion Device into Superior Vena Cava, Percutaneous Approach (ICD-10-PCS; 2019-10-19)
PROC: 03HY32Z Insertion of Monitoring Device into Upper Artery, Percutaneous Approach (ICD-10-PCS; 2019-10-19)
PROC: 4A133J1 Monitoring of Arterial Pulse, Peripheral, Percutaneous Approach (ICD-10-PCS; 2019-10-19)
PROC: 4A133B1 Monitoring of Arterial Pressure, Peripheral, Percutaneous Approach (ICD-10-PCS; 2019-10-19)
PROC: 30243K1 Transfusion of Nonautologous Frozen Plasma into Central Vein, Percutaneous Approach (ICD-10-PCS; 2019-10-19)
PROC: 0D9670Z Drainage of Stomach with Drainage Device, Via Natural or Artificial Opening (ICD-10-PCS; principal; 2019-10-19 08:45)
PROC: 0DB80ZZ Excision of Small Intestine, Open Approach (ICD-10-PCS; principal; 2019-10-19 08:45)
PROC: 0W9B30Z Drainage of Left Pleural Cavity with Drainage Device, Percutaneous Approach (ICD-10-PCS; 2019-10-20)
DX: A41.9 Sepsis, unspecified organism (principal); J96.01 Acute respiratory failure with hypoxia; I21.4 Non-ST elevation (NSTEMI) myocardial infarction; R65.21 Severe sepsis with septic shock; K55.029 Acute infarction of small intestine, extent unspecified; K72.00 Acute and subacute hepatic failure without coma; N17.0 Acute kidney failure with tubular necrosis; J93.0 Spontaneous tension pneumothorax; K41.40 Unilateral femoral hernia, with gangrene, not specified as recurrent; K65.1 Peritoneal abscess; N17.9 Acute kidney failure, unspecified; E87.2 Acidosis; I97.711 Intraoperative cardiac arrest during other surgery; I42.9 Cardiomyopathy, unspecified; J90 Pleural effusion, not elsewhere classified; R18.8 Other ascites; D62 Acute posthemorrhagic anemia; D59.4 Other nonautoimmune hemolytic anemias; E27.40 Unspecified adrenocortical insufficiency; R57.0 Cardiogenic shock; N18.3 Chronic kidney disease, stage 3 (moderate); I49.5 Sick sinus syndrome; Z66 Do not resuscitate; I12.9 Hypertensive chronic kidney disease with stage 1 through stage 4 chronic kidney disease, or unspecified chronic kidney disease; I73.9 Peripheral vascular disease, unspecified; K46.9 Unspecified abdominal hernia without obstruction or gangrene; E86.0 Dehydration; R73.9 Hyperglycemia, unspecified; I08.3 Combined rheumatic disorders of mitral, aortic and tricuspid valves; D75.1 Secondary polycythemia; K40.20 Bilateral inguinal hernia, without obstruction or gangrene, not specified as recurrent; N20.0 Calculus of kidney; I25.10 Atherosclerotic heart disease of native coronary artery without angina pectoris; E78.5 Hyperlipidemia, unspecified; N40.0 Benign prostatic hyperplasia without lower urinary tract symptoms; G89.29 Other chronic pain; K80.20 Calculus of gallbladder without cholecystitis without obstruction; M54.9 Dorsalgia, unspecified; M10.9 Gout, unspecified; H35.30 Unspecified macular degeneration; R29.6 Repeated falls; Z79.01 Long term (current) use of anticoagulants; Z79.899 Other long term (current) drug therapy; Z93.3 Colostomy status; Z85.038 Personal history of other malignant neoplasm of large intestine; Z85.828 Personal history of other malignant neoplasm of skin; Z95.810 Presence of automatic (implantable) cardiac defibrillator; Z87.891 Personal history of nicotine dependence; Z87.442 Personal history of urinary calculi; Z95.5 Presence of coronary angioplasty implant and graft; Z87.820 Personal history of traumatic brain injury; Z90.49 Acquired absence of other specified parts of digestive tract; Z98.890 Other specified postprocedural states; Z82.49 Family history of ischemic heart disease and other diseases of the circulatory system
CPT/HCPCS: 36415; 71045; 71046; 74176; 80048; 80051; 80053; 81001; 82248; 82330; 82533; 82805; 82947; 83605; 83690; 83735; 83880; 84100; 84145; 84484; 85025; 85027; 85610; 85730; 86850; 86900; 86901; 87040; 87086; 88307; 93005; 93306; 93880; 94002; 94003; 94640; 95819; 96361; 96365; 96366; 96375; 99285